=== PATIENT | female | born 1970 | race Caucasian/White ===

== ENCOUNTER 2018-11-24 18:33 | Emergency (ER) | payer BC ==
--- OUTSIDE RECORDS SUMMARY | 2018-11-24 18:36 | XMS REPORT | Summary of Care ---
:1970 Author Encounter [facility] Olesya(DALIA) [id number] Date(s): 12/31/13 - 12/31/[address] Discharge Disposition: Home Physician Attending: Kevin Garduno MD Physician Admitting: Kevin Garduno MD Physician_Referring: Ventura Epperson MD Reason for Visit STROKE R/O Vital Signs Most recent to oldest 1 2 3 [Reference Range]: Height 162.56 cm 162.56 cm (12/31/13 6:38 AM) (12/31/13 12:43 AM) Temperature Oral [96.4-99.1 96.2 DegF 97.0 DegF 98.6 DegF DegF] *LOW* (12/31/13 7:28 AM) (12/31/13 5:59 AM) (12/31/13 11:41 AM) Systolic Blood Pressure 108 mmHg 103 mmHg 117 mmHg [90-140 mmHg] (12/31/13 11:41 AM) (12/31/13 7:28 AM) (12/31/13 6:35 AM) Diastolic Blood Pressure 62 mmHg 55 mmHg 63 mmHg [60-90 mmHg] (12/31/13 11:41 AM) *LOW* (12/31/13 6:35 AM) (12/31/13 7:28 AM) Respiratory Rate [14-20 18 BRMIN 18 BRMIN 19 BRMIN BRMIN] (12/31/13 11:41 AM) (12/31/13 7:28 AM) (12/31/13 6:35 AM) Peripheral Pulse Rate [60-100 89 bpm 70 bpm 83 bpm bpm] (12/31/13 11:41 AM) (12/31/13 7:28 AM) (12/31/13 6:35 AM) Weight 112.727 kg 113.636 kg (12/31/13 6:38 AM) (12/31/13 12:43 AM) Body Mass Index 42.66 m2 43 m2 (12/31/13 6:38 AM) (12/31/13 12:43 AM) Problem List Condition Effective Dates Status Health Status Informant Asthma(Confirmed) Resolved Pericarditis(Confirmed) 12/18/04 Resolved Allergies, Adverse Reactions, Alerts Substance Reaction Severity Status codeine Active Medications Benadryl 25 mg, 0.5 mL, Route: IVP, Drug form: INJ, ONCE, Dosing Weight 112.727, kg, PRN Headache, Start date: 12/31/13 10:50:00 Notes: (Same as: Benadryl) Start Date: 12/31/13 Stop Date: 12/31/13 Status: Discontinuedchlorhexidine topical 0.12% liquid 15 mL, Route: Swab Mouth, Q4H, Drug form: LIQ, Start date: 12/31/13 4:00:00, Duration: 30 day, Stop date: 01/30/14 0:00:00 Notes: (Same As: Peridex) Start Date: 12/31/13 Stop Date: 12/31/13 Status: Discontinuedketorolac 30 mg, 1 mL, Route: IV, Drug form: INJ, ONCE, Dosing Weight 112.727, kg, Start date: 12/31/13 11:08:00, Duration: 1 doses or times, Stop date: 12/31/13 11:08: 00 Notes: (Same as:Toradol) IV bolus must be given >15 seconds. Give IM administration slowly and deeply into the muscle. Not for use > 4 days Start Date: 12/31/13 Stop Date: 12/31/13 Status: Completedketorolac 30 mg, 1 mL, Route: IV, Drug form: INJ, Q8H-05, Dosing Weight 113.636, kg, Priority: NOW, Start date: 12/31/13 3:33:00, Duration: 4 day, Stop date: 21:00:00 Notes: (Same as:Toradol) IV bolus must be given >15 seconds. Give IM administration slowly and deeply into the muscle. Not for use > 4 days Start Date: 12/31/13 Stop Date: 12/31/13 Status: Discontinuedmagnesium sulfate 2 gm, 50 mL, Route: IVPB, Drug form: INJ, ONCE, Dosing Weight 113.636, kg, Total dose=2 gm, Start date: 12/31/13 3:33:00, Duration: 1 doses or times, Stop date: 12/31/13 3:33:00 Start Date: 12/31/13 Stop Date: 12/31/13 Status: CompletedmethylPREDNISolone 125 mg, 2 mL, Route: IVP, Drug form: INJ, ONCE, Dosing Weight 112.727, kg, Start date: 12/31/13 10:49:00, Stop date: 12/31/13 10:49:00 Notes: (Same as:Solu-MEDROL, A-Methapred) Start Date: 12/31/13 Stop Date: 12/31/13 Status: Discontinuedmetoclopramide 10 mg, 2 mL, Route: IVP, Drug form: INJ, Q8H, Dosing Weight 113.636, kg, Priority: NOW, Start date: 12/31/13 3:30:00, Duration: 30 day, Stop date: 0:00:00 Notes: (Same as: Reglan) Start Date: 12/31/13 Stop Date: 12/31/13 Status: Discontinuedondansetron 4 mg, 2 mL, Route: IVP, Drug form: INJ, Q8H, Dosing Weight 113.636, kg, PRN Nausea & Vomiting, Start date: 12/31/13 3:30:00, Duration: 30 day, Stop date : 01/30/14 3:29:00 Notes: (Same as: Zofran) Start Date: 12/31/13 Stop Date: 12/31/13 Status: DiscontinuedProAir HFA 1 - 2 puffs, PO, Q4H, Wheezing / cough / shortness of breath, # 1 ea, 0 Refill(s ) Start Date: 12/31/13 Stop Date: 12/31/13 Status: DiscontinuedProAir HFA 90 mcg/inh inhalation aerosol with adapter 108MCG/A, INHALATION, Q4H, as needed for wheezing, # 9 gm, 0 Refill(s) Start Date: 12/31/13 Status: OrderedProAir HFA 90 mcg/inh inhalation aerosol with adapter 2 puff, INHALATION, Q4H, for wheezing, # 9 gm, 0 Refill(s) Start Date: 12/31/13 Stop Date: 12/31/13 Status: DiscontinuedSaline Flush 0.9% 5 ml, Route: IVP, Drug Form: INJ, Dosing Weight 113.636, kg, Q12H, Start date: 12/31/13 9:00:00, Duration: 30 day, Stop date: 01/29/14 21:00:00 Notes: (Same as: BD Posiflush) Start Date: 12/31/13 Stop Date: 12/31/13 Status: DiscontinuedSaline Flush 0.9% 5 ml, Route: IVP, Drug Form: INJ, Dosing Weight 113.636, kg, PRN, PRN Line Flush , Start date: 12/31/13 3:30:00, Duration: 30 day, Stop date: 01/30/14 3:29:00 Notes: (Same as: BD Posiflush) Start Date: 12/31/13 Stop Date: 12/31/13 Status: Discontinued Results ELECTROLYTES Most recent to oldest [Reference Range]: 1 Sodium Lvl [135-145 mEq/L] 135 mEq/L (12/31/13 3:38 AM) Potassium Lvl [3.5-5.1 mEq/L] 4.9 mEq/L 1 (12/31/13 3:38 AM) Chloride Lvl [95-109 mEq/L] 104 mEq/L (12/31/13 3:38 AM) CO2 [24-32 mEq/L] 22 mEq/L *LOW* (12/31/13 3:38 AM) AGAP [10.0-20.0 mEq/L] 13.9 mEq/L (12/31/13 3:38 AM) 1Result Comment: Specimen Moderately Hemolyzed.CHEM PANEL Most recent to oldest [Reference Range]: 1 Creatinine Lvl [0.5-1.4 mg/dL] 0.8 mg/dL (12/31/13 3:38 AM) eGFR 92 mL/min/1.73m2 2 *NA* (12/31/13 3:38 AM) BUN [7-22 mg/dL] 13 mg/dL (12/31/13 3:38 AM) B/C Ratio [6-25] 16 (12/31/13 3:38 AM) Glucose Lvl [70-99 mg/dL] 141 mg/dL 3 *HI* (12/31/13 3:38 AM) Total Protein [6.4-8.4 g/dL] 8.3 g/dL (12/31/13 3:38 AM) Albumin Lvl [3.5-5.0 g/dL] 3.4 g/dL *LOW* (12/31/13 3:38 AM) Globulin [2.0-4.0 g/dL] 4.9 g/dL *HI* (12/31/13 3:38 AM) A/G Ratio [0.7-1.6] 0.7 (12/31/13 3:38 AM) Calcium Lvl [8.5-10.5 mg/dL] 9.9 mg/dL (12/31/13 3:38 AM) ALT [0-65 unit/L] 20 unit/L (12/31/13 3:38 AM) AST [0-37 unit/L] 30 unit/L (12/31/13 3:38 AM) Alk Phos [39-136 unit/L] 78 unit/L (12/31/13 3:38 AM) Bili Total [0.2-1.3 mg/dL] 0.4 mg/dL (12/31/13 3:38 AM) 2Result Comment: The eGFR is calculated using the CKD-EPI formula. In most young , healthy individualsthe eGFR will be >90 mL/min/1.73m2. The eGFR declines with age. An eGFR of 60-89 may be normal in some populations, particularly the elderly, for whom the CKD-EPI formula has not been extensively validated. Use of the eGFR is not recommended in the following populations: Individuals with unstable creatinine concentrations, including patients and those with serious co-morbid conditions. Patients with extremes in muscle mass or diet. The data above are obtained from the National Kidney Disease Education Program ( NKDEP) which additionally recommends that when the eGFR is used in patients with extremes of body mass index for purposesof drug dosing, the eGFR should be multiplied by the estimated BMI.3Interpretive Data: Adult reference range values reflect the clinical guidelines of the [place] [employer].HEMATOLOGY Most recent to oldest [Reference Range]: 1 WBC [3.7-10.4 K/CMM] 7.0 K/CMM (12/31/13 5:50 AM) RBC [4.20-5.40 M/CMM] 4.73 M/CMM (12/31/13 5:50 AM) Hgb [12.0-16.0 g/dL] 13.8 g/dL (12/31/13 5:50 AM) Hct [36.0-48.0 %] 40.3 % (12/31/13 5:50 AM) MCV [80.0-98.0 fL] 85.2 fL (12/31/13 5:50 AM) MCH [27.0-31.0 pg] 29.1 pg (12/31/13 5:50 AM) MCHC [32.0-36.0 g/dL] 34.1 g/dL (12/31/13 5:50 AM) RDW [11.5-14.5 %] 13.1 % (12/31/13 5:50 AM) Platelet [133-450 K/CMM] 319 K/CMM (12/31/13 5:50 AM) MPV [7.4-10.4 fL] 10.0 fL (12/31/13 5:50 AM) Segs [45.0-75.0 %] 86.2 % *HI* (12/31/13 5:50 AM) Lymphocytes [20.0-40.0 %] 12.7 % *LOW* (12/31/13 5:50 AM) Monocytes [2.0-12.0 %] 0.8 % *LOW* (12/31/13 5:50 AM) Eosinophils [0.0-4.0 %] 0.2 % (12/31/13 5:50 AM) Basophils [0.0-1.0 %] 0.1 % (12/31/13 5:50 AM) Segs-Bands # [1.5-8.1 K/CMM] 6.0 K/CMM (12/31/13 5:50 AM) Lymphocytes # [1.0-5.5 K/CMM] 0.9 K/CMM *LOW* (12/31/13 5:50 AM) Monocytes # [0.0-0.8 K/CMM] 0.1 K/CMM (12/31/13 5:50 AM) Eosinophils # [0.0-0.5 K/CMM] 0.0 K/CMM (12/31/13 5:50 AM) Basophils # [0.0-0.2 K/CMM] 0.0 K/CMM (12/31/13 5:50 AM) Plt Morph Normal (12/31/13 5:50 AM) PT [12.0-14.7 seconds] 13.0 seconds (12/31/13 3:38 AM) INR [0.85-1.17] 0.98 4 (12/31/13 3:38 AM) PTT [22.9-35.8 seconds] 30.6 seconds 5 (12/31/13 3:38 AM) 4Interpretive Data: RECOMMENDED RANGES FOR PROTIME INR: 2.0-3.0 for most medical and surgical thromboembolic states. 2.5-3.5 for artificial heart valves and recurrent embolism. INR SHOULD BE USED ONLY FOR PATIENTS ON STABLE ANTICOAGULANT THERAPY.5Interpretive Data: Heparin Therapeutic Range: 57 - 92 Seconds Medications Administered During Your Visit No data available for this section Immunizations No data available for this section Procedures Procedure Type Body Site Date of Procedure Related Diagnosis Appendectomy Carpal tunnel release section TL - Tubal ligation Social History Social History Type Response Smoking Status Never smoker, Exposure to Tobacco Smoke None, Cigarette Smoking Last 365 Days No, Reg Smoking Cessation Counseling No Assessment and Plan Extracted from: Title: Clinical Document Author: Shyam Lopez MD Date: 12/31/13 Stroke Neurology Admission Note HISTORY OF PRESENT ILLNESS: 43F with history of migraine headaches which started at age 17, now presenting with severe headaches worsening over the past 2 weeks. She was seen at an OSH and a CT head was done which showed a hyperde nsity in the left vertebral artery (V4 segment). A CTA of the head and neck was then done which showed poor opacification of the left vertebral artery. The patient was referred to this institution for further evaluation. She describes her headaches as bifrontal, pressure-like, up to 9/10 in severity , occurring daily over the past 2 weeks and lasting most of the day, relieved partly by taking 4-6 tablets of tylenol daily , with associated photophobia, phonophobia, and nausea. Yesterday her headaches began to involve her whole head and became throbbing in quality. She was treated for a sinus infection with antibiotics a week ago and was given albuterol, which helped improve her breathing but did not affect her headaches. She denies any focal weakness, numbness, tingling, or visual disturbances. Review of Systems: GEN: No fever, chills, night sweats, weight loss, fatigue EYES: No blurred vision, double vision, eye pain ENT: No decreased hearing, nose bleeding, nasal congestion, sore throat CARDIO: No chest pain, palpitation, orthopnea, dyspnea on exertion PULM: No shortness of breath, cough, wheezing, asthma, sputum, hemoptysis GI: No nausea, vomiting, diarrhea, constipation, Abdominal Pain : No frequency, burning, hematuria, nocturia, hesitancy NEURO: As per HPI ENDO: No weight loss, weight gain, heat intolerance, cold intolerance SKIN: No rash, lesion, itching MUSC: No joint pain, muscle pain, arthritis, back pain Past Medical History: asthma, migraines Past Surgical History: appendectomy, 2 cesarian sections, left wrist and left foot cyst excision, carpal tunnel surgery x2 Family History: DM, HTN Social History: nonsmoker, drinks occasionally, denies illicit drug use Medications: exedrin and tylenol prn for headache Allergies: codeine Physical Exam: APPEARANCE - Active, alert, well developed, well nourished HEAD - Normocephalic and atraumatic EYES - Pupil equal and reactive to light PHARYNX - Mouth pink, mucous membranes moist. No tonsillar enlargement NECK - Supple, thyroid non-palpable, no significant adenopathy LUNGS - Clear to auscultation, no rales or rhonchi CV - Rate rhythm regular, no murmur, equal pulses bilaterally. ABDOMEN - Soft, non tender, with normal bowel sounds. 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 equal and briskly reactive, full EOMs, no papilledema, good venous pulsations, mildly flattened right nasolabial fold Motor: Tone: Normal Power: 5/5 in all groups of muscles in all four limbs Reflexes: 2+ symmetrical bilaterally Plantar: Flexor Drift: absent Sensory: Intact light touch and pin prick sensation Intact vibration and position sense Cerebellar signs: Intact FNT Gait: deferred NIHSS: 1 (right facial droop) THE FOLLOWING WERE PRESENT ON ADMISSION: 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 Assessment: 43F with history of migraine headaches which started at age 17, now presenting with severe headaches worsening over the past 2 weeks. She is likely having tension-type or migraine type headaches. Plan: -start toradol and reglan q8h for headache -give 1 time dose of magnesium sulfate 2g -MRI and MRA prior to discharge The case was discussed with Dr. Hilton, the marketing information coordinator General Neurology fellow. Shyam Lopez MD PGY2 Neurology Resident MSO [phone] Pager [phone] STROKE ATTENDING I have seen and examined the patient. Furthermore, I have discussed the case with and reviewed the resident's note and agree with the history, exam, assessment and plan. See note below for additions a nd/or exceptions and my findings. I have personally viewed the patient's radiographic studies and laboratory tests. Exam: Normal Imaging: MRI/A: unremarkable, no dissection or occlusion Assessment: Migraine Plan: Migraine -Treat BARRIGA, d/c home -Counselled on treating BARRIGA early with OTC meds Discuss philosophy of care with patient and family, reviewed and updated on plan of care and prognosis Code: [id number] Kevin Garduno MD (Teddy) Manager [employer] of Neurology Pager: [phone]
--- OUTSIDE RECORDS SUMMARY | 2018-11-24 18:36 | XMS REPORT ---
:1970 [facility] Address [address] [place] [address] Dr. Reynoso[address] [place] [id number] Care Team Providers Name Role Phone Unavailable Unavailable Unavailable Problems This patient has no known problems. Allergies, Adverse Reactions, Alerts This patient has no known allergies or adverse reactions. Medications This patient has no known medications.
--- OUTSIDE RECORDS SUMMARY | 2018-11-24 18:36 | XMS REPORT | Summary of Care ---
:1970 Author Name Jerald Burgos R.N. Address Unavailable Unavailable , Care Team Providers Name Role Phone DEBBI WELLS M.D. Unavailable Unavailable Unavailable Unavailable Unavailable Functional Status Name Dates Details Functional status health issues are not documented Status: Name Dates Details Cognitive status health issues are not documented Status: Problems Name Dates Details Vaginitis (616.10, N76.0) Status: Active Dysmenorrhea (625.3, N94.6) Status: Active Irritability and anger (799.22, R45.4) Status: Active Oral contraceptive pill surveillance (V25.41, Z30.41) Status: Active Lump or mass in breast (611.72, N63.0) Status: Active Yeast infection (112.9, B37.9) Status: Active Disturbed concentration (799.51, R41.840) Status: Active Visit for screening mammogram (V76.12, Z12.31) Status: Active Oral contraceptive prescribed (V25.01, Z30.011) Status: Active Dense breast (793.82, R92.2) Status: Active Menstrual migraine (346.40, G43.829) Status: Active History of lump of right breast (V13.89, Z87.898) Status: Active Contraception (V25.9, Z30.9) Status: Active Encounter for gynecological examination without abnormal finding (V72.31, Z01.419) Status: Active Breast screening (V76.10, Z12.31) Status: Active Medications Name Dates Details Norethindrone 0.35 MG Oral Tablet MICRONOR TAKE ONE TAB DAILY DISP: 90 DAY SUPPLY REFILL : 3 ++++ 90 day Supply +++++++++ Quantity: 84 Refills: 3 DEBBI WELLS M.D. Start : 31-Jan-2015 Active Advair Diskus AEPB Refills: 0 R.N.Active 14 Inhaler Pack Allergies and Adverse Reactions Name Dates Details Codeine Derivatives (Allergy) Status: Active Past Medical History Name Dates Details History of migraine (V12.49, Z86.69) Status: Resolved History of Visit for screening mammogram (V76.12, Z12.31) Status: Resolved History of Well woman exam with routine gynecological exam (V72.31, Z01.419) Status: Resolved Personal history of asthma (V12.69, Z87.09) Status: Resolved Procedures Procedure Dates Details History of Hand Surgery Completed History of Section Completed History of Tubal Ligation Completed History of Appendectomy Completed History of Foot Surgery Left Completed Immunization Name Dates Details Immunizations not documented Family History Name Dates Details Family history of essential hypertension (V17.49, Z82.49) Status: Active Family history of thyroid disease (V18.19, Z83.49) Status: Active Family history of asthma (V17.5, Z82.5) Status: Active Name Dates Details Family history of cardiovascular disease (V17.49, Z82.49) Status: Active Family history of type 2 diabetes mellitus (V18.0, Z83.3) Status: Active Family history of gastrointestinal bleeding (V18.59, Z83.79) Status: Active Social History Name Dates Details - Status: Name Dates Details Never smoker Vital Signs Date Test Result Details No Known Vitals to report Results Date Description Value Details Results not documented Plan of Care Name Dates Details Planned Observations Planned Goals not documented Instructions Name Dates Details Instructions not documented Encounters Appointment; DEBBI WELLS M.D. On: 20-Feb-2016 10:15 Encounter Diagnosis: Problem not documented Appointment; DEBBI WELLS M.D. On: 23-Mar-2017 10:00 Encounter Diagnosis: Problem not documented
--- OUTSIDE RECORDS SUMMARY | 2018-11-24 18:36 | XMS REPORT | Continuity of Care Document ---
:1970 Author Organization [facility] Care Team Providers Name Role Phone [facility] Unavailable Unavailable Problems Problem Status Onset Classification Date Comments Source Date Reported MIGRAINE/ABNORMA Active 12/31/[address] STROKE R/O Active 12/31/[address] Pericarditis Resolved 12/19/19 Problem 01/02/[address] Asthma Resolved Problem 01/02/2014 [facility] CVA Active [facility] Medications Medication Details Route Status Patient Ordering Order Source Instructions Provider Date 200 ACTUAT 108MCG/A, Active 12/31[facility] Albuterol 0.09 INHALATION, 2013 Medical MG/ACTUAT Metered Q4H, as needed Center Dose Inhaler for wheezing, # [ProAir HFA] 9 gm, 0 Refill(s) 200 ACTUAT 2 puff, Inactive 12/31[facility] Albuterol 0.09 INHALATION, 2013 Medical MG/ACTUAT Metered Q4H, for Center Dose Inhaler wheezing, # 9 [ProAir HFA] gm, 0 Refill(s) ProAir HFA 1 - 2 puffs, Inactive 12/31[facility] PO, Q4H, 2013 Medical Wheezing / Center cough / shortness of breath, # 1 ea, 0 Refill(s) Ketorolac 30 mg, 1 mL, Inactive 12/31[facility] Route: IV, Drug 2013 Medical form: INJ, Center ONCE, Dosing Weight 112.727, kg, Start date: 12/31/13 11:08:00, Duration: 1 doses or times, Stop date: 12/31/13 11:08:00Notes: (Same as:Toradol) IV bolus must be given >15 seconds. Give IM administration slowly and deeply into the muscle. Not for use > 4 days Benadryl 25 mg, 0.5 mL, Inactive 12/31[facility] Route: IVP, 2013 Medical Drug form: INJ, Center ONCE, Dosing Weight 112.727, kg, PRN Headache, Start date: 12/31/13 10:50:00Notes: (Same as: Benadryl) Methylprednisolone 125 mg, 2 mL, Inactive [facility] Route: IVP, 2013 Medical Drug form: INJ, Center ONCE, Dosing Weight 112.727, kg, Start date: 12/31/13 10:49:00, Stop date: 12/31/13 10:49:00Notes: (Same as:Solu-MEDROL, A-Methapred) Saline Flush 0.9% 5 ml, Route: Inactive [facility] IVP, Drug Form: 2013 Medical INJ, Dosing Center Weight 113.636, kg, Q12H, Start date: 12/31/13 9:00:00, Duration: 30 day, Stop date: 01/29/14 21:00:00Notes: (Same as: BD Posiflush) chlorhexidine 15 mL, Route: Inactive [facility] gluconate 1.2 MG/ML Swab Mouth, 2013 Medical Mouthwash Q4H, Drug form: Center LIQ, Start date: 12/31/13 4:00:00, Duration: 30 day, Stop date: 01/30/14 0:00:00Notes: (Same As: Peridex) Magnesium Sulfate 2 gm, 50 mL, Inactive [facility] Route: IVPB, 2013 Medical Drug form: INJ, Center ONCE, Dosing Weight 113.636, kg, Total dose=2 gm, Start date: 12/31/13 3:33:00, Duration: 1 doses or times, Stop date: 12/31/13 3:33:00 Ketorolac 30 mg, 1 mL, Inactive [facility] Route: IV, Drug 2013 Medical form: INJ, Center Q8H-05, Dosing Weight 113.636, kg, Priority: NOW, Start date: 12/31/13 3:33:00, Duration: 4 day, Stop date: 01/03/14 21:00:00Notes: (Same as:Toradol) IV bolus must be given >15 seconds. Give IM administration slowly and deeply into the muscle. Not for use > 4 days Saline Flush 0.9% 5 ml, Route: Inactive [facility] IVP, Drug Form: 2013 Medical INJ, Dosing Center Weight 113.636, kg, PRN, PRN Line Flush, Start date: 12/31/13 3:30:00, Duration: 30 day, Stop date: 01/30/14 3:29:00Notes: (Same as: BD Posiflush) Ondansetron 4 mg, 2 mL, Inactive [facility] Route: IVP2013 Medical Drug form: INJ, Center Q8H, Dosing Weight 113.636, kg, PRN Nausea & Vomiting, Start date: 12/31/13 3:30:00, Duration: 30 day, Stop date: 01/30/14 3:29:00Notes: (Same as: Zofran) Metoclopramide 10 mg, 2 mL, Inactive [facility] Route: IVP2013 Medical Drug form: INJ, Center Q8H, Dosing Weight 113.636, kg, Priority: NOW, Start date: 12/31/13 3:30:00, Duration: 30 day, Stop date: 01/30/14 0:00:00Notes: (Same as: Reglan) Allergies, Adverse Reactions, Alerts Substance Category Reaction Severity Reaction Status Date Comments Source type Reported codeine Assertion Drug Active [facility] Immunizations No Data Provided for This Section Results Order Name Results Value Reference Date Interpretation Comments Source Range HEMATOLOGY MCH 29.1 27.0 - 12/31 [place] 31.0 /2013 [facility] HEMATOLOGY MCHC 34.1 32.0 - 12/31 [place] 36.0 [facility] HEMATOLOGY RDW 13.1 11.5 - 12/31 [place] 14.5 [facility] HEMATOLOGY Platelet 319 133 - 450 12/31 [facility] HEMATOLOGY MCV 85.2 80.0 - 12/31 [place] 98.0 /2013 [facility] HEMATOLOGY MPV 10.0 7.4 - 10.4 12/31 [facility] HEMATOLOGY RBC 4.73 4.20 - 12/31 [place] 5.40 /2013 [facility] HEMATOLOGY Hgb 13.8 12.0 - 12/31 [place] 16.0 [facility] HEMATOLOGY WBC 7.0 3.7 - 10.4 12/31 [facility] HEMATOLOGY Hct 40.3 36.0 - 12/31 [facility] [place] 48.0 /2013 [facility] HEMATOLOGY Basophils # 0.0 0.0 - 0.2 09 [facility] HEMATOLOGY Eosinophils # 0.0 0.0 - 0.5 12/31 [facility] HEMATOLOGY Segs-Bands # 6.0 1.5 - 8.1 12/31 [facility] HEMATOLOGY Basophils 0.1 0.0 - 1.0 12/31 [facility] HEMATOLOGY Monocytes # 0.1 0.0 - 0.8 12/31 [facility] HEMATOLOGY Lymphocytes # 0.9 1.0 - 5.5 12/31 [facility] HEMATOLOGY Eosinophils 0.2 0.0 - 4.0 12/31 [facility] HEMATOLOGY Lymphocytes 12.7 20.0 - 12/31 40.0 [facility] HEMATOLOGY Monocytes 0.8 2.0 - 12.0 12/31 [facility] HEMATOLOGY Segs 86.2 45.0 - 12/31 75.0 [facility] HEMATOLOGY Plt Morph Normal 12/31 [facility] (12/31/13 5:50 AM) [facility] CHEM PANEL A/G Ratio 0.7 0.7 - 1.6 12/31 [facility] CHEM PANEL Globulin 4.9 2.0 - 4.0 12/31 [facility] CHEM PANEL AGAP 13.9 10.0 - 12/31 [facility] 20.0 [facility] CHEM PANEL B/C Ratio 16 6 - 25 12/31 [facility] CHEM PANEL AST 30 0 - 37 12/31 [facility] CHEM PANEL ALT 20 0 - 65 12/31 [facility] CHEM PANEL Albumin Lvl 3.4 3.5 - 5.0 12/31 [facility] CHEM PANEL Alk Phos 78 39 - 136 12/31 [facility] CHEM PANEL Total Protein 8.3 6.4 - 8.4 12/31 [facility] CHEM PANEL Bili Total 0.4 0.2 - 1.3 12/31 [facility] CHEM PANEL eGFR 92 12/31 <sup>2</sup>Res ult Comment: Medical The eGFR is Center calculated using the CKD-EPI formula. In most young, healthy individuals the eGFR will be >90 mL/min/1.73m2. The eGFR declines with age. An eGFR of 60-89 may be normal in some populations, particularly the elderly, for whom the CKD-EPI formula has not been extensively validated. Use of the eGFR is not recommended in the following populations:&lt ;br/>
Indiv iduals with unstable creatinine concentrations, including patients and those with serious co-morbid conditions.<br/ >
Patients with extremes in muscle mass or diet.

The data above are obtained from the National Kidney Disease Education Program (NKDEP) which additionally recommends that when the eGFR is used in patients with extremes of body mass index for purposes of drug dosing, the eGFR should be multiplied by the estimated BMI. CHEM PANEL Potassium Lvl 4.9 3.5 - 5.1 12/31 <sup>1</sup>Res ult Comment: Medical Specimen Center Moderately Hemolyzed. CHEM PANEL Chloride Lvl 104 95 - 109 12/31 [facility] CHEM PANEL CO2 22 24 - 32 12/31 [facility] CHEM PANEL Calcium Lvl 9.9 8.5 - 10.5 12/31 [facility] CHEM PANEL BUN 13 7 - 22 12/31 [facility] CHEM PANEL Creatinine 0.8 0.5 - 1.4 12/31 [facility] CHEM PANEL Sodium Lvl 135 135 - 145 12/31 [facility] CHEM PANEL Glucose Lvl 141 70 - 99 12/31 <sup>3</sup>Int erpretive Data: [facility] Adult reference Center range values reflect the clinical guidelines
of the [place] [employer]. HEMATOLOGY PTT 30.6 22.9 - 12/31 <sup>5</sup>Int [facility] 35.8 erpretive Data: [facility] Heparin Center Therapeutic Range: 57 - 92 Seconds HEMATOLOGY PT 13.0 12.0 - 12/31 [facility] 14.7 [facility] HEMATOLOGY INR 0.98 0.85 - 12/31 <sup>4</sup>Int [facility] 1.17 erpretive Data: Medical RECOMMENDED Center RANGES FOR PROTIME INR:
2.0-3.0 for most medical and surgical thromboembolic states.
2.5-3.5 for artificial heart valves and recurrent embolism.
< br/>INR SHOULD BE USED ONLY FOR PATIENTS ON STABLE ANTICOAGULANT THERAPY. Pathology Reports No Data Provided for This Section Diagnostic Reports Report Value Date Source Brain wo contrast MRA EXAM: MRI BRAIN WITHOUT CONTRAST 12/31/2013 [facility] DATE: 12/31/2013 CLINICAL INDICATION: Headache with dizziness and giddiness Additional Clinical Information: Possible left vertebral thrombus TECHNIQUE: Multisequence multiplanar unenhanced MRI of the brain is performed , including [id number] MRA of the head and neck (i.e., 3-D TOF \T\ 2-D TOF, respectively). DISCUSSION: MRI BRAIN: There is no diffusion restriction. No acute intracranial hemorrhage, mass lesion, or extra-axial collection is present. FLAIR imaging demonstrates no significant abnormality in the white or lara matter. The ventricles and basal cisterns are normal. The flow-voids of the larger arteries at the cranial base are preserved. MRA BRAIN: There is normal flow-related signal in the intradural segments of the distal vertebral arteries including the basilar artery and the visualized proximal segments of the latter. The left vertebral artery is robust, whereas the right vertebral artery is relatively diminutive compared to it. No intraluminal clot is detected, particularly in the intradural segment of the left vertebral artery. The left PICA is not visualized, which may be accounted for by the presence of a left-sided AICA-PICA complex supplying both vascular territories. MRA NECK: There is normal flow-related signal in the common and internal carotid arteries bilaterally. There is no hemodynamically significant stenosis in the cervical carotid arteries by NASCET criteria. Normal flow-related signal in the extracranial vertebral arteries is also shown. The left vertebral artery is dominant. IMPRESSION: No hemorrhage or recent ischemic changes, particularly in the posterior circulation Unremarkable MRA of the vertebrobasilar arteries. Specifically, no intraluminal thrombus in the V4 segment of the dominant left vertebral artery is detected. No hemodynamically significant stenosis in the internal carotid arteries by NASCET criteria [All qualitative and quantitative assessments of carotid bifurcation and proximal internal carotid artery stenosis are made at referencing the distal internal carotid artery.] Neck wo contrast MRA EXAM: MRI BRAIN WITHOUT CONTRAST 12/31/2013 [facility] DATE: 12/31/2013 CLINICAL INDICATION: Headache with dizziness and giddiness Additional Clinical Information: Possible left vertebral thrombus TECHNIQUE: Multisequence multiplanar unenhanced MRI of the brain is performed , including [id number] MRA of the head and neck (i.e., 3-D TOF \T\ 2-D TOF, respectively). DISCUSSION: MRI BRAIN: There is no diffusion restriction. No acute intracranial hemorrhage, mass lesion, or extra-axial collection is present. FLAIR imaging demonstrates no significant abnormality in the white or lara matter. The ventricles and basal cisterns are normal. The flow-voids of the larger arteries at the cranial base are preserved. MRA BRAIN: There is normal flow-related signal in the intradural segments of the distal vertebral arteries including the basilar artery and the visualized proximal segments of the latter. The left vertebral artery is robust, whereas the right vertebral artery is relatively diminutive compared to it. No intraluminal clot is detected, particularly in the intradural segment of the left vertebral artery. The left PICA is not visualized, which may be accounted for by the presence of a left-sided AICA-PICA complex supplying both vascular territories. MRA NECK: There is normal flow-related signal in the common and internal carotid arteries bilaterally. There is no hemodynamically significant stenosis in the cervical carotid arteries by NASCET criteria. Normal flow-related signal in the extracranial vertebral arteries is also shown. The left vertebral artery is dominant. IMPRESSION: No hemorrhage or recent ischemic changes, particularly in the posterior circulation Unremarkable MRA of the vertebrobasilar arteries. Specifically, no intraluminal thrombus in the V4 segment of the dominant left vertebral artery is detected. No hemodynamically significant stenosis in the internal carotid arteries by NASCET criteria [All qualitative and quantitative assessments of carotid bifurcation and proximal internal carotid artery stenosis are made at referencing the distal internal carotid artery.] Brain wo contrast MRI EXAM: MRI BRAIN WITHOUT CONTRAST 12/31/2013 [facility] DATE: 12/31/2013 CLINICAL INDICATION: Headache with dizziness and giddiness Additional Clinical Information: Possible left vertebral thrombus TECHNIQUE: Multisequence multiplanar unenhanced MRI of the brain is performed , including [id number] MRA of the head and neck (i.e., 3-D TOF \T\ 2-D TOF, respectively). DISCUSSION: MRI BRAIN: There is no diffusion restriction. No acute intracranial hemorrhage, mass lesion, or extra-axial collection is present. FLAIR imaging demonstrates no significant abnormality in the white or lara matter. The ventricles and basal cisterns are normal. The flow-voids of the larger arteries at the cranial base are preserved. MRA BRAIN: There is normal flow-related signal in the intradural segments of the distal vertebral arteries including the basilar artery and the visualized proximal segments of the latter. The left vertebral artery is robust, whereas the right vertebral artery is relatively diminutive compared to it. No intraluminal clot is detected, particularly in the intradural segment of the left vertebral artery. The left PICA is not visualized, which may be accounted for by the presence of a left-sided AICA-PICA complex supplying both vascular territories. MRA NECK: There is normal flow-related signal in the common and internal carotid arteries bilaterally. There is no hemodynamically significant stenosis in the cervical carotid arteries by NASCET criteria. Normal flow-related signal in the extracranial vertebral arteries is also shown. The left vertebral artery is dominant. IMPRESSION: No hemorrhage or recent ischemic changes, particularly in the posterior circulation Unremarkable MRA of the vertebrobasilar arteries. Specifically, no intraluminal thrombus in the V4 segment of the dominant left vertebral artery is detected. No hemodynamically significant stenosis in the internal carotid arteries by NASCET criteria [All qualitative and quantitative assessments of carotid bifurcation and proximal internal carotid artery stenosis are made at referencing the distal internal carotid artery.] Consultation Notes No Data Provided for This Section Discharge Summaries No Data Provided for This Section History and Physicals No Data Provided for This Section Vital Signs Vital Sign Value Date Comments Source Heart Rate 89 12/31/2013 [facility] Temperature Oral (F) 96.2 F 12/31/2013 [facility] Diastolic (mm Hg) 62 12/31/2013 [facility] Systolic (mm Hg) 108 12/31/2013 [facility] Respitory Rate 18 12/31/2013 [facility] Systolic (mm Hg) 103 12/31/2013 [facility] Diastolic (mm Hg) 55 12/31/2013 [facility] Respitory Rate 18 12/31/2013 [facility] Heart Rate 70 12/31/2013 [facility] Temperature Oral (F) 97.0 F 12/31/2013 [facility] BMI Calculated 42.66 12/31/2013 [facility] Weight 112.727 12/31/2013 [facility] Height 162.56 cm 12/31/2013 [facility] Respitory Rate 19 12/31/2013 [facility] Heart Rate 83 12/31/2013 [facility] Diastolic (mm Hg) 63 12/31/2013 [facility] Systolic (mm Hg) 117 12/31/2013 [facility] Temperature Oral (F) 98.6 F 12/31/2013 [facility] BMI Calculated 43 12/31/2013 [facility] Height 162.56 cm 12/31/2013 [facility] Weight 113.636 12/31/2013 [facility] Encounters Location Location Encounter Encounter Reason Attending ADM DC Status Source Details Type Number For Provider Date Date Visit [facility] [id number] [place] 12/31 12/31 [facility] [place] /2013 [facility] Procedures Procedure Code Date Perfomer Comments Source Appendectomy [id number] [facility] Carpal tunnel [id number] [facility] section [id number] [facility] TL - Tubal ligation [id number] [facility] Assessment and Plan Assessment and Plan Date Source Extracted from:Title: Clinical Document 12/31/2013 [facility] Author: Shyam Lopez MD Date: 12/31/13 Stroke [...] fluent, comprehension intact, repetition and naming intact 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 Hilton, the food concession manager General Neurology fellow. Shyam Lopez MD PGY2 Neurology Resident MSO [phone] Pager [phone] STROKE ATTENDING I have seen and examined the patient. Furthermore, I have discussed the case with and reviewed the resident's note and agree with the history, exam, assessment and plan. See note below for additi ons and/or exceptions and my findings. I have personally viewed the patient's radiographic studies and laboratory tests. Exam: Normal Imaging: MRI/A: unremarkable, no dissection or occlusion Assessment: Migraine Plan: Migraine -Treat BARRIGA, d/c home -Counselled on treating BARRIGA early with OTC meds Discuss philosophy of care with patient and family, reviewed and updated on plan of care and prognosis Code: [id number] Kevin Garduno MD ([place]) Penetration Tester of Neurology Pager: [phone] Plan of Care No Data Provided for This Section Social History Social History Date Source Social History TypeResponse 12/31/2013 [facility] Smoking Status Never smoker, Exposure to Tobacco Smoke None, Cigarette Smoking Last 365 Days No, Reg Smoking Cessation Counseling No Family History No Data Provided for This Section Advance Directives No Data Provided for This Section Functional Status No Data Provided for This Section
[2018-11-24] MEDS ORDERED: DIAZEPAM 5 MG TABLET ONE (19:30)
[2018-11-24] MEDS ORDERED: HYDROCODONE/APAP 5/325 MG TAB ONE (19:30)
--- NOTE | 2018-11-24 20:23 | ER ---
Nurse's Notes [facility] Name: Gill Car Age: 48 yrs Sex: Female : 1970 Arrival Date: 11/24/2018 Time: 18:35 Bed 15 Private MD: Checo Pires S Diagnosis: Radiculopathy, cervical region Presentation: 11/24 18:53 Presenting complaint: Patient states: " I woke up Wednesday and my neck really hurt. I ph thought I slept on it wrong but it's just gotten worse." Reports pain in center of neck that radiates to both shoulders. Transition of care: patient was not received from another setting of care. Onset of symptoms was November 24, 2018. Risk Assessment: Do you want to hurt yourself or someone else? Patient reports no desire to harm self or others. Initial Sepsis Screen: Does the patient meet any 2 criteria? No. Patient's initial sepsis screen is negative. Does the patient have a suspected source of infection? No. Patient's initial sepsis screen is negative. Care prior to arrival: None. 18:53 Method Of Arrival: Ambulatory ph 18:53 Acuity: IWONA 4 ph Historical: - Allergies: 18:56 Codeine; ph - Home Meds: 18:56 nasalcort [Active]; Zyrtec 10 mg Oral tab 1 tab once daily [Active]; ph - PMHx: 18:56 Asthma; ph - PSHx: 18:56 L bunionectomy; R shoulder; Bladder suspension; Tubal ligation; ph - Immunization history:: Adult Immunizations unknown. - Social history:: Smoking status: Patient/guardian denies using tobacco. - Ebola Screening: : No symptoms or risks identified at this time. Screenin:00 Abuse screen: Denies threats or abuse. Nutritional screening: No deficits noted. tr5 Tuberculosis screening: No symptoms or risk factors identified. Fall Risk No fall in past 12 months (0 pts). No secondary diagnosis (0 pts). Assessment: 19:38 General: Appears uncomfortable, Behavior is calm, cooperative, appropriate for age. tr5 Pain: Complains of pain in scalp, left trapezius and right trapezius Pain does not radiate. Pain currently is 7 out of 10 on a pain scale. Quality of pain is described as aching, crampy. Neuro: Level of Consciousness is awake, alert, obeys commands, Oriented to person, place, time, situation, Rehabilitation Physician are equal bilaterally Moves all extremities. Cardiovascular: Heart tones present Bruits absent Capillary refill < 3 seconds Pulses are all present. Edema is absent. Respiratory: Airway is patent Trachea midline Respiratory effort is even, unlabored, Respiratory pattern is regular, symmetrical, Breath sounds are clear bilaterally. GI: No signs and/or symptoms were reported involving the gastrointestinal system. : No signs and/or symptoms were reported regarding the genitourinary system. EENT: No signs and/or symptoms were reported regarding the EENT system. Derm: Skin is intact, is healthy with good turgor, Skin is dry, Skin is normal, Skin temperature is warm. Musculoskeletal: Capillary refill < 3 seconds, Range of motion: intact in all extremities. Vital Signs: 18:55 BP 134 / 92; Pulse 88; Resp 18; Temp 97.9; Pulse Ox 100% on R/A; Weight 119.75 kg; ph Height 5 ft. 4 in. (162.56 cm); Pain 7/10; 18:55 Body Mass Index 45.32 (119.75 kg, 162.56 cm) ph ED Course: 18:35 Patient arrived in ED. mr 18:35 Checo Pires MD is Private Physician. mr 18:54 Jovana Mcneal FNP-C is [facility]. snw 18:54 Nicolas Farias MD is Attending Physician. snw 18:55 Triage completed. ph 18:56 Arm band placed on Patient placed in an exam room. ph 19:00 Bed in low position. Call light in reach. Side rails up X 1. Warm blanket given. tr5 19:11 Khris Duque, RN is Primary Nurse. tr5 19:38 Patient moved to radiology via wheelchair. tr5 19:45 XRAY C Spine Ap/lat In Process Unspecified. EDMS 19:56 Awaiting radiology results. tr5 19:56 Door closed. Noise minimized. tr5 20:37 No provider procedures requiring assistance completed. Patient did not have IV access tr5 during this emergency room visit. Administered Medications: 19:33 Drug: Valium 10 mg Route: PO; tr5 20:16 Follow up: Response: No adverse reaction; Marked relief of symptoms tr5 19:33 Drug: [place] 5 mg-325 mg 1 tabs {Note: RAAS Score: 0.} Route: PO; tr5 20:15 Follow up: Response: Pain is decreased; RASS: Alert and Calm (0) tr5 Outcome: 20:21 Discharge ordered by MD. miller 20:37 Discharged to home ambulatory. tr5 20:37 Condition: stable 20:37 Discharge instructions given to patient, Instructed on discharge instructions, follow up and referral plans. medication usage, Demonstrated understanding of instructions, follow-up care, medications, Prescriptions given X 2. 20:37 Patient left the ED. tr5 Signatures: Dispatcher [employer] EDMS Jovana Mcneal, SENIOR STATISTICIAN-C SENIOR STATISTICIAN-Nafisa Norwood Patricia, RN RN Khris Pardo RN RN tr5
--- NOTE | 2018-11-24 20:24 | EDPHYS ---
Physician Documentation [facility] Name: Gill Car Age: 48 yrs Sex: Female : 1970 Arrival Date: 11/24/2018 Time: 18:35 Bed 15 Private MD: Checo Pires S ED Physician Nicolas Farias HPI: 11/24 19:44 This 48 yrs old Female presents to ER via Ambulatory with complaints of Neck snw Problem. 19:44 The patient or guardian complains of decreased range of motion, pain. The symptoms are snw located on the left trapezius, right trapezius and thoracic area. Onset: The symptoms/episode began/occurred suddenly, 6 day(s) ago, and became persistent. Context: The problem was sustained at home, The neck injury/problem resulted from from unknown cause. Associated signs and symptoms: The patient has no apparent associated signs or symptoms. Location: left trapezius, right trapezius, left scapular area and right scapular area. Severity of symptoms: At their worst the symptoms were moderate, in the emergency department the symptoms are unchanged. It is unknown whether or not the patient has had similar symptoms in the past. It is unknown whether or not the patient has recently seen a physician. Historical: - Allergies: 18:56 Codeine; ph - Home Meds: 18:56 nasalcort [Active]; Zyrtec 10 mg Oral tab 1 tab once daily [Active]; ph - PMHx: 18:56 Asthma; ph - PSHx: 18:56 L bunionectomy; R shoulder; Bladder suspension; Tubal ligation; ph - Immunization history:: Adult Immunizations unknown. - Social history:: Smoking status: Patient/guardian denies using tobacco. - Ebola Screening: : No symptoms or risks identified at this time. ROS: 19:31 Constitutional: Negative for fever, chills, and weight loss, Eyes: Negative for injury, snw pain, redness, and discharge, ENT: Negative for injury, pain, and discharge, Cardiovascular: Negative for chest pain, palpitations, and edema, Respiratory: Negative for shortness of breath, cough, wheezing, and pleuritic chest pain, Abdomen/GI: Negative for abdominal pain, nausea, vomiting, diarrhea, and constipation, Back: Negative for injury and pain, : Negative for injury, bleeding, discharge, and swelling, MS/Extremity: Negative for injury and deformity, Skin: Negative for injury, rash, and discoloration, Neuro: Negative for headache, weakness, numbness, tingling, and seizure. 19:31 Neck: Positive for pain with movement, stiffness, of the lower neck pain with radiation to bilateral shoulders. Exam: 19:24 Constitutional: This is a well developed, well nourished patient who is awake, alert, snw and in no acute distress. Head/Face: Normocephalic, atraumatic. Eyes: Pupils equal round and reactive to light, extra-ocular motions intact. Lids and lashes normal. Conjunctiva and sclera are non-icteric and not injected. Cornea within normal limits. Periorbital areas with no swelling, redness, or edema. ENT: Nares patent. No nasal discharge, no septal abnormalities noted. Tympanic membranes are normal and external auditory canals are clear. Oropharynx with no redness, swelling, or masses, exudates, or evidence of obstruction, uvula midline. Mucous membranes moist. Neck: Trachea midline, no thyromegaly or masses palpated, and no cervical lymphadenopathy. Supple, full range of motion without nuchal rigidity, or vertebral point tenderness. No Meningismus. Chest/axilla: Normal chest wall appearance and motion. Nontender with no deformity. No lesions are appreciated. Cardiovascular: Regular rate and rhythm with a normal S1 and S2. No gallops, murmurs, or rubs. Normal PMI, no JVD. No pulse deficits. Respiratory: Lungs have equal breath sounds bilaterally, clear to auscultation and percussion. No rales, rhonchi or wheezes noted. No increased work of breathing, no retractions or nasal flaring. Abdomen/GI: Soft, non-tender, with normal bowel sounds. No distension or tympany. No guarding or rebound. No evidence of tenderness throughout. Back: No spinal tenderness. No costovertebral tenderness. Full range of motion. Skin: Warm, dry with normal turgor. Normal color with no rashes, no lesions, and no evidence of cellulitis. Neuro: Awake and alert, GCS 15, oriented to person, place, time, and situation. Cranial nerves II-XII grossly intact. Motor strength 5/5 in all extremities. Sensory grossly intact. Cerebellar exam normal. Normal gait. Psych: Awake, alert, with orientation to person, place and time. Behavior, mood, and affect are within normal limits. 19:24 Musculoskeletal/extremity: ROM: tendonitis in left ankle in boot, right shoulder pain chronically. Pt states she awoke Riki with neck pain radiating to bilateral shoulders. Vital Signs: 18:55 BP 134 / 92; Pulse 88; Resp 18; Temp 97.9; Pulse Ox 100% on R/A; Weight 119.75 kg; ph Height 5 ft. 4 in. (162.56 cm); Pain 7/10; 18:55 Body Mass Index 45.32 (119.75 kg, 162.56 cm) ph MDM: 18:54 Patient medically screened. snw 20:19 Data reviewed: vital signs, nurses notes. Data interpreted: Pulse oximetry: on room air snw is 100 %. Interpretation: normal. Counseling: I had a detailed discussion with the patient and/or guardian regarding: the historical points, exam findings, and any diagnostic results supporting the discharge/admit diagnosis, radiology results, the need for outpatient follow up, to return to the emergency department if symptoms worsen or persist or if there are any questions or concerns that arise at home. Response to treatment: the patient's symptoms have markedly improved after treatment. Special discussion: Based on the history and exam findings, there is no indication for further emergent testing or inpatient evaluation. I discussed with the patient/guardian the need to see the orthopedic surgeon for further evaluation of the symptoms. I discussed with the patient/guardian the need to see the career development specialist for further evaluation of the symptoms. I discussed with the patient/guardian the need to see the primary care provider for further evaluation of the symptoms. 11/24 19:17 Order name: XRAY C Spine Ap/lat snw Administered Medications: 19:33 Drug: Valium 10 mg Route: PO; tr5 20:16 Follow up: Response: No adverse reaction; Marked relief of symptoms tr5 19:33 Drug: [place] 5 mg-325 mg 1 tabs {Note: RAAS Score: 0.} Route: PO; tr5 20:15 Follow up: Response: Pain is decreased; RASS: Alert and Calm (0) tr5 Disposition: 11/25 08:12 Co-signature as Attending Physician, iNcolas Farias MD I agree with the assessment and kdr plan of care. Disposition: 11/24/18 20:21 Discharged to Home. Impression: Radiculopathy, cervical region. - Condition is Stable. - Discharge Instructions: Cervical Radiculopathy, Cervical Sprain, Cryotherapy, Heat Therapy, Radicular Pain. - Prescriptions for Prednisone 20 mg Oral Tablet - take 2 tablet by ORAL route once daily for 5 days; 10 tablet. orphenadrine citrate 100 mg Oral Tablet Sustained Release - take 1 tablet by ORAL route 2 times per day As needed; 20 tablet. - Work release form, Medication Reconciliation Form, Thank You Letter, Antibiotic Education, Prescription Opioid Use form. - Follow up: Private Physician; When: Tomorrow; Reason: Recheck today's complaints, Continuance of care, Re-evaluation by your physician. Follow up: Emergency Department; When: As needed; Reason: Worsening of condition. Signatures: Dispatcher [employer] EDCT Nicolas Farias MD MD [facility] Jovana Mcneal, SIGNALS INTELLIGENCE SUPERINTENDENT-C SIGNALS INTELLIGENCE SUPERINTENDENT-[employer] Kenia Aguiar, RN RN Khris Duque RN RN tr5 Corrections: (The following items were deleted from the chart) 11/24 20:37 20:21 11/24/2018 20:21 Discharged to Home. Impression: Radiculopathy, cervical region. tr5 Condition is Stable. Forms are Medication Reconciliation Form, Thank You Letter, Antibiotic Education, Prescription Opioid Use. Follow up: Private Physician; When: Tomorrow; Reason: Recheck today's complaints, Continuance of care, Re-evaluation by your physician. Follow up: Emergency Department; When: As needed; Reason: Worsening of condition. snw
--- NOTE | 2018-11-24 20:36 | RAD REPORT ---
EXAM DESCRIPTION: RAD - C Spine Ap/Lat - 11/24/2018 7:46 pm CLINICAL HISTORY: Neck pain, pain radiating to both shoulders. COMPARISON: None. FINDINGS: Cervical bodies are normal in height and alignment. No fracture or acute bony process seen . No significant disc space narrowing. There is no prevertebral soft tissue thickening or other suspicious soft tissue finding. IMPRESSION: Negative cervical spine examination.
== END 2018-11-24 20:37 | disposition home or self-care (01) ==
LOC: ER 18:33
DX: M54.12 Radiculopathy, cervical region (principal); J45.909 Unspecified asthma, uncomplicated; Z88.5 Allergy status to narcotic agent
CPT/HCPCS: 72040; 99283

== ENCOUNTER 2022-09-02 22:37 | Observation (INO) | payer BC ==
--- OUTSIDE RECORDS SUMMARY | 2022-09-02 22:46 | XMS REPORT | Continuity of Care Document ---
:[address] [facility] t Address [address] [place] [address] [place] [id number] Care Team Providers Name Role Phone Checo Metcalf MD Primary Care Physician [phone] DELROY LAKHANI Attending Clinician Unavailable FERNANDA PRINCE Attending Clinician Unavailable MATHEUS SILVA Attending Clinician Unavailable Doctor Unassigned, [place] Attending Clinician Unavailable Matheus Silva Attending Clinician Unavailable Checo Metcalf MD Attending Clinician Fernanda Prince MD Attending Clinician Ashley Crawley DO Attending Clinician ASHLEY CRAWLEY Attending Clinician Unavailable ASHLEY CRAWLEY Attending Clinician Unavailable RUBEN TOBIN Attending Clinician Unavailable Ruben George Attending Clinician SHIRA LORD Attending Clinician Unavailable Shria Valentino Attending Clinician LINSEY SNYDER Attending Clinician Unavailable Delroy Lakhani MD Attending Clinician Room, [facility] Attending Clinician Unavailable Kizzy Flores LVN Attending Clinician Unavailable Lab, Ang - Db Attending Clinician Unavailable CHECO METCALF Attending Clinician Unavailable Yumiko NEFF, Felipe Attending Clinician FELIPE MILLAN Attending Clinician Unavailable Husam BELCHER, Lorenza Attending Clinician Unavailable Analisa NEFF, Gustavo Attending Clinician [phone] Only, Adc Test Attending Clinician Unavailable Linsey Snyder MD Attending Clinician Renetta Godoy RN Attending Clinician Unavailable Caitlin Ralph MA Attending Clinician Unavailable MATT LAU Attending Clinician Unavailable Julio Wild Attending Clinician Unavailable ESE PIMENTEL Attending Clinician Unavailable BAL DIXON Attending Clinician Unavailable DEBBI WELLS M.D. Attending Clinician Unavailable Kevin Garduno Attending Clinician DELROY LAKHANI Admitting Clinician Unavailable Tim Seymour Admitting Clinician Unavailable Delroy Lakhani MD Admitting Clinician LINSEY SNYDER Admitting Clinician Unavailable RUBEN TOBIN Admitting Clinician Unavailable ESE PIMENTEL Admitting Clinician Unavailable Kvein Garduno Admitting Clinician Payers Payer Name Policy Type Policy Number Effective Date Expiration Date S [facility] [id number] 2015 00:00:00 Problems Condition Condition Condition Status Onset Resolution Last Treating Co mments Source Name Details Category Date Date Treatment Clinician Date Upper Upper Disease Active 2021-04 [facility] respirator respirator 2-20 it y of y tract y tract 00:00: [place] infection, infection, 00 Me dical unspecifie unspecifie Br anch d type d type Gastrocnem Gastrocnem Disease Active U nivers ius ius 6-30 ity of equinus, equinus, 00:00: [place] right right 00 Medical Branch Achilles Achilles Disease Active Overview: Un amrita tendinitis tendinitis 628 [place] ity of of right of right 00:00: g of this [place] as lower lower 00 note Medical extremity extremity might be Br anch different from the original. 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 severe severe 2-14 ity of obesity obesity 00:00: [place] without without 00 Medical serious serious Branch comorbidit comorbidit y with y with body mass body mass index index (BMI) of (BMI) of 45.0 to 45.0 to 49.9 in 49.9 in adult, adult, unspecifie unspecifie d obesity d obesity type type Lump or Lump or Disease Active 2019-04 Univers mass in mass in 2-14 ity of breast breast 00:00: [place] 00 Medical Branch 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 2-14 it y of ce ce 00:00: [place] 00 Medical Branch S/P S/P Disease Active 2018-04 Methodi Achilles Achilles 2-20 st tendon tendon 00:00: [facility]ospita repair repair 00 l Achilles Achilles Disease Active 2018-04 Unive rs tendinitis tendinitis 1-21 it y of of left of left 00:00: [place] lower lower 00 Medical extremity extremity Bran ch Acute Acute Disease Active Univers nonintract nonintract 3-09 it y of able able 00:00: [place] headache, headache, 00 Medi mariam unspecifie unspecifie Br anch d headache d headache type type Vision Vision Disease Active Univers changes changes 3- ity of 00:00: [place] 00 Medical Branch Anxiety Anxiety Disease Active Univers 3-23 ity of 00:00: [place] 00 Medical Branch Depression Depression Disease Active U nivers 3-23 ity of 00:00: [place] 00 Medical Branch MIGRAINE/A MIGRAINE/ Diagnosis Active 2013-12-[address] ABNORMAL 12-30 02:51:[address] Active 00:00: Terry 12/30/[address] [place] [address] STROKE R/O STROKE Diagnosis Active 2014-01-01 Memoria R/O Active 12-30 10:49:00 l 12/30/2013 00:00: Theodore zarco [address] History of History of Problem Resolve [place] migraine migraine HL7.CCDAR2 d Ph ysici ans Personal Personal Problem Resolve [place] history of history of HL7.CCDAR2 d Physici asthma asthma ans Vaginitis Vaginitis Problem Active [place] HL7.CCDAR2 Physic i ans Dysmenorrh Dysmenorrh Problem Active U T ea ea HL7.CCDAR2 Physic i ans Irritabili Irritabili Problem Active U T ty and ty and HL7.CCDAR2 Physic i anger anger ans Yeast Yeast Problem Active [facility] infection infection HL7.CCDAR2 Physici ans Disturbed Disturbed Problem Active UT concentrat concentrat HL7.CCDAR2 Physici ion ion ans Oral Oral Problem Active [facility] contracept contracept HL7.CCDAR2 Physici lizett lizett ans prescribed prescribed Menstrual Menstrual Problem Active [facility] migraine migraine HL7.CCDAR2 Ph ysici ans History of History of Problem Active U T lump of lump of HL7.CCDAR2 Phys ici right right ans breast breast Dense Dense Problem Active UT breast breast HL7.CCDAR2 Physic i ans Encounter Encounter Problem Active UT for for HL7.CCDAR2 Physic i gynecologi gynecologi an s mariam mariam examinatio examinatio n without n without abnormal abnormal finding finding Oral Oral Problem Active UT contracept contracept HL7.CCDAR2 Physici lizett pill lizett pill ans surveillan surveillan ce ce Weight Weight Problem Active UT gain gain HL7.CCDAR2 Physic i ans Screening Screening Problem Active [facility] for for HL7.CCDAR2 Physic i thyroid thyroid ans disorder disorder Asthma Asthma Problem Resolve 2014-01-02 Mem oria (disorder) (disorder) d 20:49:01 l Resolved [place] Problem 01/02/2014 [facility] CVA CVA Diagnosis Active 2014-01-01 Mem oria Active 10:49:00 l [facility] Pericardit Pericardi Problem Resolve 2005-0 2014-01-02 2014-01-02 Memoria is tis d 12-18 20:49:01 20:49:01 l (disorder) (disorder) 00:00: [place] Resolved 00 12/18/2004 Problem 01/02/2014 [facility] Allergies, Adverse Reactions, Alerts Allergy Allergy Status Severity Reaction(s) Onset Inactive Treating Comm ents Source Name Type Date Date Clinician CIGARETT DRUG Active SOB 2021-04 Univers E SMOKE INGREDI 2-20 ity of 00:00: [place] 00 Medical Branch Cigarett Propensi Active Cough 2021-04 Univer s e Smoke ty to 2-20 ity of adverse 00:00: [place] reaction 00 Medical s Branch Codeine Propensi Active Unknown 2018-04 Method i ty to Reaction 05-09 st adverse 00:00: Hospita reaction 00 l s to drug codeine DA Active [facility] NAUSEA [facility] HALLUCINATIO 06-09 Pear marita N 00:00: d 00 [facility] Codeine Propensi Active Nausea Univers ty to and/or 07-09 ity of adverse Vomiting 00:00: [place] reaction 00 Medical s Branch CODEINE DRUG Active N/V Univers INGREDI 07-09 ity of 00:00: [place] 00 [facility] codeine codeine Active Memoria l [place] Codeine drug Active UT Derivati allergy Physici ves ans Family History Family Member Diagnosis Comments Start Date Stop Date Source Paternal Heart disease [facility] Paternal Kidney disease [facility] Paternal Diabetes [facility] Natural father Diabetes [facility] Natural father Heart disease [facility] Natural father Liver disease [facility] Maternal Stroke [facility] mother Stroke [facility] Paternal Cancer [facility] Mother Family history of [facility] essential hypertension Mother Family history of [facility] thyroid disease Mother Family history of [facility] asthma Father Family history of [facility] cardiovascular disease Father Family history of type [facility] 2 diabetes mellitus Father Family history of [facility] gastrointestinal bleeding Social History Social Habit Start Date Stop Date Quantity Comments Source Gender identity [facility] Sexual orientation [facility] History of Social 2022-06-26 2022-06-[address] function 00:00:00 00:00:00 Hospital Exposure to 2022-05-05 2022-05-15 Not sure University of SARS-CoV-2 (event) 00:00:00 10:17:00 [facility] Alcohol intake 2021-07-10 2021-07-10 Current drinker [facility] dist 00:00:00 00:00:00 of alcohol Hospital (finding) History [facility] 2020-04-01 2020-04-01 3 University o f Alcohol Frequency 00:00:00 00:00:00 [place] M edical Branch History [facility] 2020-04-01 2020-04-01 1 University o f Alcohol Std Drinks 00:00:00 00:00:00 [place] [facility] History [facility] 2020-04-01 2020-04-01 99 [facility] o f Alcohol Binge 00:00:00 00:00:00 [place] [facility] al Branch Tobacco use and 2019-03-09 2019-03-09 Smokeless Taoist exposure 00:00:00 00:00:00 tobacco non-user Hospital Alcohol Comment 2014-07-09 2014-07-09 1 drink/week Univers ity of 00:00:00 00:00:00 [facility] Sex [birth year] At [birth year] Taoist 00:00:00 00:00:00 [facility] Smoking Status Start Date Stop Date Source Social History [place] [facility] Medications Ordered Filled Start Stop Current Ordering Indication Dosage Frequency Signature Comments Components Source Medication Medication Date Date Medication? Clinician (SIG) Name Name oxymetazoli 2022- Yes [id number] 1{spray Use 1 Univers ne 0.05 % 08-03 } [place] in ity o f nasal spray 00:00: 04:59 each [place] 00 :00 nostril 3 Medical (three) Branch times daily as needed (sinus/ear pressure; do NOT use for more than 3 days straight) for up to 3 days. oxymetazoli 2022- Yes [id number] 1{spray Use 1 Univers ne 0.05 % 08-03-21 } [place] in ity o f nasal spray 00:00: 04:59 each [place] 00 :00 nostril 3 Medical (three) Branch times daily as needed (sinus/ear pressure; do NOT use for more than 3 days straight) for up to 3 days. erenumab-ao Yes inject Univ ers oe (AIMOVIG 1-27 under the ity of AUTOINJECTO 10:49: skin. [place] [id number] Medical Branch MULTIVITAMI Yes Take by Uni vers N ORAL 1-27 mouth. ity of 10:49: [place] [address] Medical Branch acetaminoph Yes 325mg Take 325 U nivers en 325 mg 1-27 mg by ity of tablet 10:49: mouth. [place] [address] Medical Branch Venlafaxine Yes Take by Uni vers 37.5 mg 1-27 mouth ity of TR24 10:49: daily. Medical Branch erenumab-ao Yes inject Univ ers oe (AIMOVIG 1-27 under the ity of AUTOINJECTO 10:49: skin. [facility]) Medical Branch MULTIVITAMI Yes Take by Uni vers N ORAL 1-27 mouth. ity of 10:49: Medical Branch acetaminoph Yes 325mg Take 325 U nivers en 325 mg 1-27 mg by ity of tablet 10:49: mouth. Medical Branch Venlafaxine Yes Take by Uni vers 37.5 mg 1-27 mouth ity of TR24 10:49: daily. Medical Branch erenumab-ao Yes inject Univ ers oe (AIMOVIG 1-27 under the ity of AUTOINJECTO 10:49: skin. [facility]) Medical Branch MULTIVITAMI Yes Take by Uni vers N ORAL 1-27 mouth. ity of 10:49: Medical Branch acetaminoph Yes 325mg Take 325 U nivers en 325 mg 1-27 mg by ity of tablet 10:49: mouth. Medical Branch Venlafaxine Yes Take by Uni vers 37.5 mg 1-27 mouth ity of TR24 10:49: daily. Medical Branch erenumab-ao Yes inject Univ ers oe (AIMOVIG 1-27 under the ity of AUTOINJECTO 10:49: skin. [facility]) Medical Branch MULTIVITAMI Yes Take by Uni vers N ORAL 1-27 mouth. ity of 10:49: Medical Branch acetaminoph Yes 325mg Take 325 U nivers en 325 mg 1-27 mg by ity of tablet 10:49: mouth. Medical Branch Venlafaxine Yes Take by Uni vers 37.5 mg 1-27 mouth ity of TR24 10:49: daily. [place] Medical [facility] erenumab-ao Yes inject Univ ers oe (AIMOVIG 1-27 under the ity of AUTOINJECTO 10:49: skin. [facility]) Medical Branch MULTIVITAMI Yes Take by Uni vers N ORAL 1-27 mouth. ity of 10:49: [place] Medical Branch acetaminoph Yes 325mg Take 325 U nivers en 325 mg 1-27 mg by ity of tablet 10:49: mouth. [place] Medical Branch Venlafaxine Yes Take by Uni vers 37.5 mg 1-27 mouth ity of TR24 10:49: daily. [place] Medical Branch erenumab-ao Yes inject Univ ers oe (AIMOVIG 27 under the ity of AUTOINJECTO 10:49: skin. [place]) Medical Branch MULTIVITAMI Yes Take by Uni vers N ORAL 1-27 mouth. ity of 10:49: [place] Medical Branch acetaminoph Yes 325mg Take 325 U nivers en 325 mg 1-27 mg by ity of tablet 10:49: mouth. Medical Branch Venlafaxine Yes Take by Uni vers 37.5 mg 1-27 mouth ity of TR24 10:49: daily. [place] Medical Branch triamcinolo 2022- No 2{spray Use 2 U nivers ne 55 mcg 1-23 -23 } Sprays in ity of nasal 16:03: 00:00 each [place] inhaler 06 :00 nostril. Medical Branch triamcinolo 2022- No 2{spray Use 2 U nivers ne 55 mcg 1-23 -23 } Sprays in ity of nasal 16:03: 00:00 each [place] inhaler 06 :00 nostril. Medical Branch triamcinolo 2022- No 2{spray Use 2 U nivers ne 55 mcg 1-23 -23 } Sprays in ity of nasal 16:03: 00:00 each [place] inhaler 06 :00 nostril. Medical Branch montelukast Yes [id number] 10mg Take 1 Univers (SINGULAIR) 1-23 tablet by ity of 10 mg 00:00: mouth in [place] tablet 00 the Medical morning. Branch azelastine Yes [id number] 1{spray Use 1 Univers 137 mcg 1-23 } [place] in ity of (0.1 %) 00:00: each [place] nasal spray 00 nostril in [facility]ical [facility] [place] morning and 1 [place] in the evening. Use in each nostril as directed triamcinolo 2022-0 Yes [id number] 2{spray Use 2 Univers ne 55 mcg 1-23 } Sprays in ity o f nasal 00:00: each [place] inhaler 00 nostril in Medica l the [place] morning. mupirocin 2 2022-0 Yes [id number] Apply to Univers % ointment 1-23 area(s) 3 ity of 00:00: (three) [place] 00 times Medical daily. Branch albuterol 2022-0 Yes [id number] 2{puff} Inhale 2 Univers (PROAIR 1-23 Puffs ity of HFA) 90 00:00: every 6 [place] mcg/actuati 00 (six) Medical on inhaler hours as Branc h needed for Wheezing or Shortness of Breath. montelukast 2022-0 Yes [id number] 10mg Take 1 Univers (SINGULAIR) 1-23 tablet by ity of 10 mg 00:00: mouth in [place] tablet 00 the Medical morning. Branch azelastine Yes [id number] 1{spray Use 1 Univers 137 mcg 1-23 } [place] in ity of (0.1 %) 00:00: each [place] nasal spray [address] [facility] morning and 1 [place] in the evening. Use in each nostril as directed triamcinolo 2022-0 Yes [id number] 2{spray Use 2 Univers ne 55 mcg 1-23 } Sprays in ity o f nasal 00:00: each inhaler 00 [facility] morning. mupirocin 2 2022-0 Yes [id number] Apply to Univers % ointment 1-23 area(s) 3 ity of 00:00: (three) [place] 00 times Medical daily. Branch albuterol 2022-0 Yes [id number] 2{puff} Inhale 2 Univers (PROAIR 1-23 Puffs ity of HFA) 90 00:00: every 6 [place] mcg/actuati 00 (six) Medical on inhaler hours as Branc h needed for Wheezing or Shortness of Breath. montelukast 2022-0 Yes [id number] 10mg Take 1 Univers (SINGULAIR) 1-23 tablet by ity of 10 mg 00:00: mouth in [place] tablet 00 the Medical morning. Branch azelastine Yes [id number] 1{spray Use 1 Univers 137 mcg 1-23 } [place] in ity of (0.1 %) 00:00: each [place] nasal spray 00 nostril in Me dical the [place] morning and 1 [place] in the evening. Use in each nostril as directed triamcinolo 0 Yes [id number] 2{spray Use 2 Univers ne 55 mcg 1-23 } Sprays in ity o f nasal 00:00: each [place] inhaler 00 nostril in Medica l the [place] morning. mupirocin 2 2022-0 Yes [id number] Apply to Univers % ointment 1-23 area(s) 3 ity of 00:00: (three) [place] 00 times Medical daily. Branch albuterol Yes [id number] 2{puff} Inhale 2 Univers (PROAIR 1-23 Puffs ity of HFA) 90 00:00: every 6 [place] mcg/actuati 00 (six) Medical on inhaler hours as Branc h needed for Wheezing or Shortness of Breath. montelukast Yes [id number] 10mg Take 1 Univers (SINGULAIR) 1-23 tablet by ity of 10 mg 00:00: mouth in [place] tablet 00 the Medical morning. Branch azelastine 0 Yes [id number] 1{spray Use 1 Univers 137 mcg 1-23 } [place] in ity of (0.1 %) 00:00: each [place] nasal spray 00 nostril in Ca dical the [place] morning and 1 [place] in the evening. Use in each nostril as directed triamcinolo 2022-0 Yes [id number] 2{spray Use 2 Univers ne 55 mcg 1-23 } Sprays in ity o f nasal 00:00: each [place] inhaler 00 nostril in Medica l the [place] morning. mupirocin 2 2022-0 Yes [id number] Apply to Univers % ointment 1-23 area(s) 3 ity of 00:00: (three) [place] 00 times Medical daily. Branch albuterol Yes [id number] 2{puff} Inhale 2 Univers (PROAIR 1-23 Puffs ity of HFA) 90 00:00: every 6 [place] mcg/actuati 00 (six) Medical on inhaler hours as Branc h needed for Wheezing or Shortness of Breath. montelukast 2022-0 Yes [id number] 10mg Take 1 Univers (SINGULAIR) 1-23 tablet by ity of 10 mg 00:00: mouth in [place] tablet 00 the Medical morning. Branch azelastine 2022-0 Yes [id number] 1{spray Use 1 Univers 137 mcg 1-23 } [place] in ity of (0.1 %) 00:00: each [place] nasal spray 00 nostril in Me dical the Branch morning and 1 [place] in the evening. Use in each nostril as directed triamcinolo 2022-0 Yes [id number] 2{spray Use 2 Univers ne 55 mcg 1-23 } Sprays in ity o f nasal 00:00: each [place] inhaler 00 nostril in Medica l the Branch morning. mupirocin 2 2022-0 Yes [id number] Apply to Univers % ointment 1-23 area(s) 3 ity of 00:00: (three) [place] 00 times Medical daily. Branch albuterol 0 Yes [id number] 2{puff} Inhale 2 Univers (PROAIR 1-23 Puffs ity of HFA) 90 00:00: every 6 [place] mcg/actuati 00 (six) Medical on inhaler hours as Branc h needed for Wheezing or Shortness of Breath. montelukast 2022-0 Yes [id number] 10mg Take 1 Univers (SINGULAIR) 1-23 tablet by ity of 10 mg 00:00: mouth in [place] tablet 00 the Medical morning. Branch azelastine 2022-0 Yes [id number] 1{spray Use 1 Univers 137 mcg 1-23 } [place] in ity of (0.1 %) 00:00: each [place] nasal spray 00 nostril in Me dical the Branch morning and 1 [place] in the evening. Use in each nostril as directed triamcinolo 2022-0 Yes [id number] 2{spray Use 2 Univers ne 55 mcg 1-23 } Sprays in ity o f nasal 00:00: each [place] inhaler 00 nostril in Medica l the Branch morning. mupirocin 2 Yes [id number] Apply to Univers % ointment 1-23 area(s) 3 ity of 00:00: (three) [place] 00 times Medical daily. Branch albuterol Yes [id number] 2{puff} Inhale 2 Univers (PROAIR 1-23 Puffs ity of HFA) 90 00:00: every 6 [place] mcg/actuati 00 (six) Medical on inhaler hours as Branc h needed for Wheezing or Shortness of Breath. montelukast Yes [id number] 10mg Take 1 Univers (SINGULAIR) 1-23 tablet by ity of 10 mg 00:00: mouth in [place] tablet 00 the Medical morning. Branch azelastine Yes [id number] 1{spray Use 1 Univers 137 mcg 1-23 } [place] in ity of (0.1 %) 00:00: each [place] nasal spray 00 nostril in Me dical the [place] morning and 1 [place] in the evening. Use in each nostril as directed triamcinolo Yes [id number] 2{spray Use 2 Univers ne 55 mcg 1-23 } Sprays in ity o f nasal 00:00: each [place] inhaler 00 nostril in Medica l the [place] morning. mupirocin 2 Yes [id number] Apply to Univers % ointment 1-23 area(s) 3 ity of 00:00: (three) [place] 00 times Medical daily. Branch albuterol Yes [id number] 2{puff} Inhale 2 Univers (PROAIR 1-23 Puffs ity of HFA) 90 00:00: every 6 [place] mcg/actuati 00 (six) Medical on inhaler hours as Branc h needed for Wheezing or Shortness of Breath. montelukast Yes [id number] 10mg Take 1 Univers (SINGULAIR) 1-23 tablet by ity of 10 mg 00:00: mouth in [place] tablet 00 the Medical morning. Branch azelastine Yes [id number] 1{spray Use 1 Univers 137 mcg 1-23 } [place] in ity of (0.1 %) 00:00: each [place] nasal spray 00 nostril in Me dical the [place] morning and 1 [place] in the evening. Use in each nostril as directed triamcinolo Yes [id number] 2{spray Use 2 Univers ne 55 mcg 1-23 [id number] } Sprays in ity of nasal 00:00: each [place] inhaler 00 nostril in Medica l the [place] morning. mupirocin 2 Yes [id number] Apply to Univers % ointment 1-23 area(s) 3 ity of 00:00: (three) [place] 00 times Medical daily. [place] albuterol Yes [id number] 2{puff} Inhale 2 Univers (PROAIR 1-23 Puffs ity of HFA) 90 00:00: every 6 [place] mcg/actuati 00 (six) Medical on inhaler hours as Branc h needed for Wheezing or Shortness of Breath. montelukast Yes [id number] 10mg Take 1 Univers (SINGULAIR) 1-23 tablet by ity of 10 mg 00:00: mouth in [place] tablet 00 the morning. [place] azelastine Yes [id number] 1{spray Use 1 Univers 137 mcg 1-23 } [place] in ity of (0.1 %) 00:00: each [place] nasal spray 00 nostril in Ca dical the [place] morning and 1 [place] in the evening. Use in each nostril as directed triamcinolo Yes [id number] 2{spray Use 2 Univers ne 55 mcg 1-23 [id number] } Sprays in ity of nasal 00:00: each inhaler 00 nostril in Medica l the [place] morning. mupirocin 2 Yes [id number] Apply to Univers % ointment 1-23 area(s) 3 ity of 00:00: (three) [place] 00 times Medical daily. [place] albuterol Yes [id number] 2{puff} Inhale 2 Univers (PROAIR 1-23 Puffs ity of HFA) 90 00:00: every 6 [place] mcg/actuati 00 (six) Medical on inhaler hours as Branc h needed for Wheezing or Shortness of Breath. montelukast 2022-0 Yes [id number] 10mg Take 1 Univers (SINGULAIR) 1-23 tablet by ity of 10 mg 00:00: mouth in [place] tablet 00 the Medical morning. [place] azelastine Yes [id number] 1{spray Use 1 Univers 137 mcg 1-23 } [place] in ity of (0.1 %) 00:00: each [place] nasal spray 00 nostril in Ca dical the [place] morning and 1 [place] in the evening. Use in each nostril as directed triamcinolo 2022-0 Yes [id number] 2{spray Use 2 Univers ne 55 mcg 1-23 [id number] } Sprays in ity of nasal 00:00: each [place] inhaler 00 nostril in Medica l the [place] morning. mupirocin 2 2022-0 Yes [id number] Apply to Univers % ointment 1-23 area(s) 3 ity of 00:00: (three) [place] 00 times Medical daily. [place] albuterol Yes [id number] 2{puff} Inhale 2 Univers (PROAIR 1-23 Puffs ity of HFA) 90 00:00: every 6 [place] mcg/actuati 00 (six) Medical on inhaler hours as Branc h needed for Wheezing or Shortness of Breath. montelukast Yes [id number] 10mg Take 1 Univers (SINGULAIR) 1-23 tablet by ity of 10 mg 00:00: mouth in [place] tablet 00 the morning. [place] azelastine Yes [id number] 1{spray Use 1 Univers 137 mcg 1-23 } [place] in ity of (0.1 %) 00:00: each [place] nasal spray 00 nostril in Ca dicla the [place] morning and 1 [place] in the evening. Use in each nostril as directed triamcinolo 2022-0 Yes [id number] 2{spray Use 2 Univers ne 55 mcg 1-23 [id number] } Sprays in ity of nasal 00:00: each [place] inhaler 00 nostril in Medica l the [place] morning. mupirocin 2 2022-0 Yes [id number] Apply to Univers % ointment 1-23 area(s) 3 ity of 00:00: (three) [place] 00 times Medical daily. [place] albuterol 0 Yes [id number] 2{puff} Inhale 2 Univers (PROAIR 1-23 Puffs ity of HFA) 90 00:00: every 6 [place] mcg/actuati 00 (six) Medical on inhaler hours as Branc h needed for Wheezing or Shortness of Breath. topiramate 2021- Yes 25mg Take 25 mg U nivers 25 mg 2-20 by mouth. ity of tablet 11:15: [place] [address] Medical Branch celecoxib 2021-04 Yes 200mg Take 200 Uni vers 200 mg 2-20 mg by ity of capsule 11:15: mouth once [place] now. Medical Branch topiramate 2021- Yes 25mg Take 25 mg U nivers 25 mg 2-20 by mouth. ity of tablet 11:15: [place] [address] Medical Branch celecoxib 2021- Yes 200mg Take 200 Uni vers 200 mg 2-20 mg by ity of capsule 11:15: mouth once [place] now. Medical Branch topiramate 2021- Yes 25mg Take 25 mg U nivers 25 mg 2-20 by mouth. ity of tablet 11:15: [place] [address] [facility] celecoxib 2021- Yes 200mg Take 200 Uni vers 200 mg 2-20 mg by ity of capsule 11:15: mouth [place] now. [facility] topiramate 2021- Yes 25mg Take 25 mg U nivers 25 mg 2-20 by mouth. ity of tablet 11:15: [place] [address] [facility] celecoxib 2021-1 Yes 200mg Take 200 Uni vers 200 mg 2-20 mg by ity of capsule 11:15: mouth [place] now. [facility] topiramate 2021- Yes 25mg Take 25 mg U nivers 25 mg 2-20 by mouth. ity of tablet 11:15: [place] [address] [facility] celecoxib 2-1 Yes 200mg Take 200 Uni vers 200 mg 2-20 mg by ity of capsule 11:15: mouth [place] now. [facility] topiramate 2021- Yes 25mg Take 25 mg U nivers 25 mg 2-20 by mouth. ity of tablet 11:15: [place] [address] [facility] celecoxib 2021-1 Yes 200mg Take 200 Uni vers 200 mg 2-20 mg by ity of capsule 11:15: mouth [place] now. [facility] topiramate 2021-1 Yes 25mg Take 25 mg U nivers 25 mg 2-20 by mouth. ity of tablet 11:15: [place] [address] [facility] celecoxib 2022-1 Yes 200mg Take 200 Uni vers 200 mg 2-20 mg by ity of capsule 11:15: mouth [place] now. [facility] topiramate 2021-1 Yes 25mg Take 25 mg U nivers 25 mg 2-20 by mouth. ity of tablet 11:15: [place] [address] [facility] celecoxib 2021- Yes 200mg Take 200 Uni vers 200 mg 2-20 mg by ity of capsule 11:15: mouth [place] now. [facility] topiramate 2021- Yes 25mg Take 25 mg U nivers 25 mg 2-20 by mouth. ity of tablet 11:15: [place] [address] [facility] celecoxib 2021- Yes 200mg Take 200 Uni vers 200 mg 2-20 mg by ity of capsule 11:15: mouth [place] now. [facility] topiramate 2021-1 Yes 25mg Take 25 mg U nivers 25 mg 2-20 by mouth. ity of tablet 11:15: [place] [address] [facility] celecoxib 2021-1 Yes 200mg Take 200 Uni vers 200 mg 2-20 mg by ity of capsule 11:15: mouth [place] now. [facility] topiramate 2021- Yes 25mg Take 25 mg U nivers 25 mg 2-20 by mouth. ity of tablet 11:15: [place] [address] [facility] celecoxib 2021-1 Yes 200mg Take 200 Uni vers 200 mg 2-20 mg by ity of capsule 11:15: mouth [place] now. [facility] topiramate 2021-1 Yes 25mg Take 25 mg U nivers 25 mg 2-20 by mouth. ity of tablet 11:15: [place] [address] [facility] celecoxib 2022-1 Yes 200mg Take 200 Uni vers 200 mg 2-20 mg by ity of capsule 11:15: mouth [place] now. [facility] topiramate 2021-1 Yes 25mg Take 25 mg U nivers 25 mg 2-20 by mouth. ity of tablet 11:15: [place] [address] [facility] celecoxib 2022-1 Yes 200mg Take 200 Uni vers 200 mg 2-20 mg by ity of capsule 11:15: mouth [place] now. [facility] topiramate 2022-1 Yes 25mg Take 25 mg U nivers 25 mg 2-20 by mouth. ity of tablet 11:15: [place] [address] [facility] celecoxib 2021-04 Yes 200mg Take 200 Uni vers 200 mg 2-20 mg by ity of capsule 11:15: mouth [place] now. [facility] topiramate 2021-04 Yes 25mg Take 25 mg U nivers 25 mg 2-20 by mouth. ity of tablet 11:15: [place] [address] [facility] celecoxib 2021-04 Yes 200mg Take 200 Uni vers 200 mg 2-20 mg by ity of capsule 11:15: mouth [place] now. [facility] topiramate 2021-04 Yes 25mg Take 25 mg U nivers 25 mg 2-20 by mouth. ity of tablet 11:15: [address] Branch celecoxib 2021-04 Yes 200mg Take 200 Uni vers 200 mg 2-20 mg by ity of capsule 11:15: mouth once [place] now. [facility] fluticasone 2021-04 Yes [id number] 1{puff} Inhale 1 [facility] propionate 2-20 Puff in ity of (FLOVENT 00:00: the [place] DISKUS) 50 00 morning Medica l mcg/actuati and 1 Puff Br anch on diskus in the inhaler evening. fluticasone 2021-04 Yes [id number] 1{puff} Inhale 1 [facility] propionate 2-20 Puff in ity of (FLOVENT 00:00: the [place] DISKUS) 50 00 morning Medica l mcg/actuati and 1 Puff Br anch on diskus in the inhaler evening. fluticasone 2021-04 Yes [id number] 1{puff} Inhale 1 [facility] propionate 2-20 Puff in ity of (FLOVENT 00:00: the [place] DISKUS) 50 00 morning Medica l mcg/actuati and 1 Puff Br anch on diskus in the inhaler evening. fluticasone 2021-04 Yes [id number] 1{puff} Inhale 1 [facility] propionate 2-20 Puff in ity of (FLOVENT 00:00: the [place] DISKUS) 50 00 morning Medica l mcg/actuati and 1 Puff Br anch on diskus in the inhaler evening. fluticasone 2021-04 Yes [id number] 1{puff} Inhale 1 [facility] propionate 2-20 Puff in ity of (FLOVENT 00:00: the [place] DISKUS) 50 00 morning Medica l mcg/actuati and 1 Puff Br anch on diskus in the inhaler evening. fluticasone 2021-04 Yes [id number] 1{puff} Inhale 1 [facility] propionate 2-20 Puff in ity of (FLOVENT 00:00: the [place] DISKUS) 50 00 morning Medica l mcg/actuati and 1 Puff Br anch on diskus in the inhaler evening. fluticasone 2021-04 Yes [id number] 1{puff} Inhale 1 [facility] propionate 2-20 Puff in ity of (FLOVENT 00:00: the [place] DISKUS) 50 00 morning Medica l mcg/actuati and 1 Puff Br anch on diskus in the inhaler evening. fluticasone 2021-04 Yes [id number] 1{puff} Inhale 1 [facility] propionate 2-20 Puff in ity of (FLOVENT 00:00: the [place] DISKUS) 50 00 morning Medica l mcg/actuati and 1 Puff Br anch on diskus in the inhaler evening. fluticasone 2021-04 Yes [id number] 1{puff} Inhale 1 [facility] propionate 2-20 Puff in ity of (FLOVENT 00:00: the [place] DISKUS) 50 00 morning Medica l mcg/actuati and 1 Puff Br anch on diskus in the inhaler evening. fluticasone 2021-04 Yes [id number] 1{puff} Inhale 1 [facility] propionate 2-20 Puff in ity of (FLOVENT 00:00: the [place] DISKUS) 50 00 morning Medica l mcg/actuati and 1 Puff Br anch on diskus in the inhaler evening. fluticasone 2021-04 Yes [id number] 1{puff} Inhale 1 [facility] propionate 2-20 Puff in ity of (FLOVENT 00:00: the [place] DISKUS) 50 00 morning Medica l mcg/actuati and 1 Puff Br anch on diskus in the inhaler evening. fluticasone 2021-04 Yes [id number] 1{puff} Inhale 1 [facility] propionate 2-20 Puff in ity of (FLOVENT 00:00: the [place] DISKUS) 50 00 morning Medica l mcg/actuati and 1 Puff Br anch on diskus in the inhaler evening. fluticasone 2021-04 Yes [id number] 1{puff} Inhale 1 [facility] propionate 2-20 Puff in ity of (FLOVENT 00:00: the [place] DISKUS) 50 00 morning Medica l mcg/actuati and 1 Puff Br anch on diskus in the inhaler evening. fluticasone 2021-04 Yes [id number] 1{puff} Inhale 1 [facility] propionate 2-20 Puff in ity of (FLOVENT 00:00: the [place] DISKUS) 50 00 morning Medica l mcg/actuati and 1 Puff Br anch on diskus in the inhaler evening. fluticasone 2021-04 Yes [id number] 1{puff} Inhale 1 [facility] propionate 2-20 Puff in ity of (FLOVENT 00:00: the [place] DISKUS) 50 00 morning Medica l mcg/actuati and 1 Puff Br anch on diskus in the inhaler evening. fluticasone 2021-04 Yes [id number] 1{puff} Inhale 1 [facility] propionate 2-20 Puff in ity of (FLOVENT 00:00: the [place] DISKUS) 50 00 morning Medica l mcg/actuati and 1 Puff Br anch on diskus in the inhaler evening. bromphenira 2021-04- No [id number] 10mL Take 10 mL [facility] mine-pseudo 2-20 12- by mouth 4 i ty of ephedrine-D 00:00: 05:59 (four) [place] as M (BROMFED 00 :00 times Medical DM) 2-30-10 daily as Bran ch mg/5 mL needed for syrup Congestion /Allergies for up to 10 days. bromphenira 2021-04- No [id number] 10mL Take 10 mL [facility] mine-pseudo 2-20 12-31 by mouth 4 i ty of ephedrine-D 00:00: 05:59 (four) [place] as M (BROMFED 00 :00 times Medical DM) 2-30-10 daily as Bran ch mg/5 mL needed for syrup Congestion /Allergies for up to 10 days. methylPREDN 2021-04 Yes Take by Uni vers ISolone 4 2-08 mouth ity of mg tablets 00:00: [place] 00 CTIONS. Medical follow Branch package directions , take with food and water cefdinir 2021-1 Yes 300mg Take 1 Univer s 300 mg 2-08 capsule by ity of capsule 00:00: mouth [place] 00 every 12 Medical (twelve) Branch hours. Start this if still congested after taking steroid pack for 3 days methylPREDN 2021-1 Yes Take by Uni vers ISolone 4 2-08 mouth ity of mg tablets 00:00: [place] CTIONS. Medical follow Branch package directions , take with food and water cefdinir 2021-1 Yes 300mg Take 1 Univer s 300 mg 2-08 capsule by ity of capsule 00:00: mouth [place] 00 every 12 Medical (twelve) Branch hours. Start this if still congested after taking steroid pack for 3 days methylPREDN 2021-1 Yes Take by Uni vers ISolone 4 2-08 mouth ity of mg tablets 00:00: SEE-INSTRU [place] 00 CTIONS. Medical follow Branch package directions , take with food and water cefdinir 2021-1 Yes 300mg Take 1 Univer s 300 mg 2-08 capsule by ity of capsule 00:00: mouth [place] 00 every 12 Medical (twelve) Branch hours. Start this if still congested after taking steroid pack for 3 days methylPREDN 2021-1 Yes Take by Uni vers ISolone 4 2-08 mouth ity of mg tablets 00:00: SEE-INSTRU [place] 00 CTIONS. Medical follow Branch package directions , take with food and water cefdinir 2021-1 Yes 300mg Take 1 Univer s 300 mg 2-08 capsule by ity of capsule 00:00: mouth [place] 00 every 12 Medical (twelve) Branch hours. Start this if still congested after taking steroid pack for 3 days methylPREDN 2-1 Yes Take by Uni vers ISolone 4 2-08 mouth ity of mg tablets 00:00: SEE-INSTRU [place] 00 CTIONS. Medical follow Branch package directions , take with food and water cefdinir 2-1 Yes 300mg Take 1 Univer s 300 mg 2-08 capsule by ity of capsule 00:00: mouth [place] 00 every 12 Medical (twelve) Branch hours. Start this if still congested after taking steroid pack for 3 days methylPREDN 2-1 Yes Take by Uni vers ISolone 4 2-08 mouth ity of mg tablets 00:00: SEE-INSTRU [place] 00 CTIONS. Medical follow Branch package directions , take with food and water cefdinir 2021-1 Yes 300mg Take 1 Univer s 300 mg 2-08 capsule by ity of capsule 00:00: mouth [place] 00 every 12 Medical (twelve) Branch hours. Start this if still congested after taking steroid pack for 3 days methylPREDN 2021- Yes Take by Uni vers ISolone 4 2-08 mouth ity of mg tablets 00:00: SEE-INSTRU [place] 00 CTIONS. Medical follow Branch package directions , take with food and water cefdinir 2021- Yes 300mg Take 1 Univer s 300 mg 2-08 capsule by ity of capsule 00:00: mouth [place] 00 every 12 Medical (twelve) Branch hours. Start this if still congested after taking steroid pack for 3 days methylPREDN 2021- Yes Take by Uni vers ISolone 4 2-08 mouth ity of mg tablets 00:00: SEE-INSTRU [place] 00 CTIONS. Medical follow Branch package directions , take with food and water cefdinir 2021- Yes 300mg Take 1 Univer s 300 mg 2-08 capsule by ity of capsule 00:00: mouth [place] 00 every 12 Medical (twelve) Branch hours. Start this if still congested after taking steroid pack for 3 days methylPREDN 2021- Yes Take by Uni vers ISolone 4 2-08 mouth ity of mg tablets 00:00: SEE-INSTRU [place] 00 CTIONS. Medical follow Branch package directions , take with food and water cefdinir 2021-1 Yes 300mg Take 1 Univer s 300 mg 2-08 capsule by ity of capsule 00:00: mouth [place] 00 every 12 Medical (twelve) Branch hours. Start this if still congested after taking steroid pack for 3 days methylPREDN 2021-1 Yes Take by Uni vers ISolone 4 2-08 mouth ity of mg tablets 00:00: SEE-INSTRU [place] 00 CTIONS. Medical follow Branch package directions , take with food and water cefdinir 2-1 Yes 300mg Take 1 Univer s 300 mg 2-08 capsule by ity of capsule 00:00: mouth [place] 00 every 12 Medical (twelve) Branch hours. Start this if still congested after taking steroid pack for 3 days methylPREDN 2021-1 Yes Take by Uni vers ISolone 4 2-08 mouth ity of mg tablets 00:00: SEE-INSTRU [place] 00 CTIONS. Medical follow Branch package directions , take with food and water cefdinir 2021-1 Yes 300mg Take 1 Univer s 300 mg 2-08 capsule by ity of capsule 00:00: mouth [place] 00 every 12 Medical (twelve) Branch hours. Start this if still congested after taking steroid pack for 3 days methylPREDN 2021-1 Yes Take by Uni vers ISolone 4 2-08 mouth ity of mg tablets 00:00: SEE-INSTRU [place] 00 CTIONS. Medical follow Branch package directions , take with food and water cefdinir 2021-1 Yes 300mg Take 1 Univer s 300 mg 2-08 capsule by ity of capsule 00:00: mouth [place] 00 every 12 Medical (twelve) Branch hours. Start this if still congested after taking steroid pack for 3 days methylPREDN 2021-1 Yes Take by Uni vers ISolone 4 2-08 mouth ity of mg tablets 00:00: SEE-INSTRU [place] 00 CTIONS. Medical follow Branch package directions , take with food and water cefdinir 2021-1 Yes 300mg Take 1 Univer s 300 mg 2-08 capsule by ity of capsule 00:00: mouth [place] 00 every 12 Medical (twelve) Branch hours. Start this if still congested after taking steroid pack for 3 days methylPREDN 2021-1 Yes Take by Uni vers ISolone 4 2-08 mouth ity of mg tablets 00:00: SEE-INSTRU [place] 00 CTIONS. Medical follow Branch package directions , take with food and water cefdinir 2021-1 Yes 300mg Take 1 Univer s 300 mg 2-08 capsule by ity of capsule 00:00: mouth [place] 00 every 12 Medical (twelve) Branch hours. Start this if still congested after taking steroid pack for 3 days methylPREDN 2-1 Yes Take by Uni vers ISolone 4 2-08 mouth ity of mg tablets 00:00: SEE-INSTRU [place] 00 CTIONS. Medical follow Branch package directions , take with food and water cefdinir 2-1 Yes 300mg Take 1 Univer s 300 mg 2-08 capsule by ity of capsule 00:00: mouth [place] 00 every 12 Medical (twelve) Branch hours. Start this if still congested after taking steroid pack for 3 days methylPREDN 2021- Yes Take by Uni vers ISolone 4 2-08 mouth ity of mg tablets 00:00: SEE-INSTRU [place] 00 CTIONS. Medical follow Branch package directions , take with food and water cefdinir 2021-04 Yes 300mg Take 1 Univer s 300 mg 2-08 capsule by ity of capsule 00:00: mouth [place] 00 every 12 Medical (twelve) Branch hours. Start this if still congested after taking steroid pack for 3 days methylPREDN 2021- Yes Take by Uni vers ISolone 4 2-08 mouth ity of mg tablets 00:00: SEE-INSTRU [place] 00 CTIONS. Medical follow Branch package directions , take with food and water cefdinir 2021-04 Yes 300mg Take 1 Univer s 300 mg 2-08 capsule by ity of capsule 00:00: mouth [place] 00 every 12 Medical (twelve) Branch hours. Start this if still congested after taking steroid pack for 3 days Venlafaxine 2021-0 Yes Take by Uni vers 37.5 mg 7-13 mouth ity of TR24 22:28: daily. [place] [facility] celecoxib 2021-0 Yes 200mg Take 200 Uni vers (CELEBREX) 7-13 mg by ity of 200 mg 22:28: mouth once [place] capsule 03 now. Medical Branch Venlafaxine 2021-0 Yes Take by Uni vers 37.5 mg 7-13 mouth ity of TR24 22:28: daily. [place] [facility] celecoxib 2-0 Yes 200mg Take 200 Uni vers (CELEBREX) 7-13 mg by ity of 200 mg 22:28: mouth once [place] capsule 03 now. Medical Branch Venlafaxine 2-0 Yes Take by Uni vers 37.5 mg 7-13 mouth ity of TR24 22:28: daily. [place] [facility] Venlafaxine 2021-0 Yes Take by Uni vers 37.5 mg 7-13 mouth ity of TR24 22:28: daily. [place] [facility] Venlafaxine 2021-0 Yes Take by Uni vers 37.5 mg 7-13 mouth ity of TR24 22:28: daily. [address] Venlafaxine Yes Take by Uni vers 37.5 mg 7-13 mouth ity of TR24 22:28: daily. [address] Venlafaxine Yes Take by Uni vers 37.5 mg 7-13 mouth ity of TR24 22:28: daily. [address] Venlafaxine Yes Take by Uni vers 37.5 mg 7-13 mouth ity of TR24 22:28: daily. [address] Venlafaxine Yes Take by Uni vers 37.5 mg 7-13 mouth ity of TR24 22:28: daily. [address] Venlafaxine Yes Take by Uni vers 37.5 mg 7-13 mouth ity of TR24 22:28: daily. [address] Venlafaxine Yes Take by Uni vers 37.5 mg 7-13 mouth ity of TR24 22:28: daily. [address] Venlafaxine Yes Take by Uni vers 37.5 mg 7-13 mouth ity of TR24 22:28: daily. [address] erenumab-ao Yes inject Univ ers oe (AIMOVIG 7-12 under the ity of AUTOINJECTO 10:31: skin. [address] MULTIVITAMI Yes Take by Uni vers N ORAL 7-12 mouth. ity of 10:31: [address] Magnesium Yes Take by Unive rs 250 mg Tab 7-12 mouth. ity of 10:31: [address] acetaminoph Yes 325mg Take 325 U nivers en 325 mg 7-12 mg by ity of tablet 10:31: mouth. [address] omeprazole Yes 20mg Take 20 mg U nivers 20 mg 7-12 by mouth. ity of capsule 10:31: [address] triamcinolo Yes 2{spray Use 2 Un amrit[place] ne 55 mcg 7-12 } Sprays in ity o f nasal 10:31: each [place] inhaler 55 nostril. [facility] topiramate Yes 25mg Take 25 mg U nivers (TOPAMAX) 7-12 by mouth. ity o f 25 mg 10:31: [place] tablet 55 [facility] erenumab-ao 0 Yes inject Univ ers oe (AIMOVIG 7-12 under the ity of AUTOINJECTO 10:31: skin. [place] R [place]) [address] [place] [address] MULTIVITAMI Yes Take by Uni vers N ORAL 7-12 mouth. ity of 10:31: [address] Magnesium 0 Yes Take by Unive rs 250 mg Tab 7-12 mouth. ity of 10:31: [address] acetaminoph 0 Yes 325mg Take 325 U nivers en 325 mg 7-12 mg by ity of tablet 10:31: mouth. [address] omeprazole 0 Yes 20mg Take 20 mg U nivers 20 mg 7-12 by mouth. ity of capsule 10:31: [address] triamcinolo Yes 2{spray Use 2 Un [place] ne 55 mcg 7-12 } Sprays in ity o f nasal 10:31: each [place] inhaler 55 nostril. Medical Branch topiramate 0 Yes 25mg Take 25 mg U nivers (TOPAMAX) 7-12 by mouth. ity o f 25 mg 10:31: [place] tablet [address] [place] [address] erenumab-ao Yes inject Univ ers oe (AIMOVIG 7-12 under the ity of AUTOINJECTO 10:31: skin. [place]) [address] [place] [address] MULTIVITAMI Yes Take by Uni vers N ORAL 7-12 mouth. ity of 10:31: [address] Magnesium 0 Yes Take by Unive rs 250 mg Tab 7-12 mouth. ity of 10:31: [address] acetaminoph Yes 325mg Take 325 U nivers en 325 mg 7-12 mg by ity of tablet 10:31: mouth. [address] omeprazole 0 Yes 20mg Take 20 mg U nivers 20 mg 7-12 by mouth. ity of capsule 10:31: [address] triamcinolo Yes 2{spray Use 2 Un [place] ne 55 mcg 7-12 } Sprays in ity o f nasal 10:31: each [place] inhaler 55 nostril. Medical Branch erenumab-ao Yes inject Univ ers oe (AIMOVIG 7-12 under the ity of AUTOINJECTO 10:31: skin. [place] R [place]) Medical Branch MULTIVITAMI Yes Take by Uni vers N ORAL 7-12 mouth. ity of 10:31: [place] [address] Medical Branch Magnesium 0 Yes Take by Unive rs 250 mg Tab 7-12 mouth. ity of 10:31: [place] [address] Medical Branch acetaminoph 0 Yes 325mg Take 325 U nivers en 325 mg 7-12 mg by ity of tablet 10:31: mouth. [place] [address] Medical Branch omeprazole 0 Yes 20mg Take 20 mg U nivers 20 mg 7-12 by mouth. ity of capsule 10:31: [place] [address] Medical Branch triamcinolo Yes 2{spray Use 2 Un [place] ne 55 mcg 7-12 } Sprays in ity o f nasal 10:31: each [place] inhaler 55 nostril. Medical Branch erenumab-ao Yes inject Univ ers oe (AIMOVIG 7-12 under the ity of AUTOINJECTO 10:31: skin. [facility]) Medical Branch MULTIVITAMI Yes Take by Uni vers N ORAL 7-12 mouth. ity of 10:31: [place] [address] Medical Branch Magnesium 0 Yes Take by Unive rs 250 mg Tab 7-12 mouth. ity of 10:31: [place] [address] Medical Branch acetaminoph Yes 325mg Take 325 U nivers en 325 mg 7-12 mg by ity of tablet 10:31: mouth. [place] [address] Medical Branch omeprazole 0 Yes 20mg Take 20 mg U nivers 20 mg 7-12 by mouth. ity of capsule 10:31: [place] [address] Medical Branch triamcinolo Yes 2{spray Use 2 Un [place] ne 55 mcg 7-12 } Sprays in ity o f nasal 10:31: each [place] inhaler 55 nostril. Medical Branch erenumab-ao Yes inject Univ ers oe (AIMOVIG 7-12 under the ity of AUTOINJECTO 10:31: skin. [place]) Medical Branch MULTIVITAMI 0 Yes Take by Uni vers N ORAL 7-12 mouth. ity of 10:31: [place] [address] Medical Branch Magnesium 0 Yes Take by Unive rs 250 mg Tab 7-12 mouth. ity of 10:31: [address] Branch acetaminoph Yes 325mg Take 325 U nivers en 325 mg 7-12 mg by ity of tablet 10:31: mouth. [address] omeprazole 0 Yes 20mg Take 20 mg U nivers 20 mg 7-12 by mouth. ity of capsule 10:31: [address] Branch triamcinolo Yes 2{spray Use 2 Un [place] ne 55 mcg 7-12 } Sprays in ity o f nasal 10:31: each [place] inhaler 55 nostril. Medical Branch erenumab-ao Yes inject Univ ers oe (AIMOVIG 7-12 under the ity of AUTOINJECTO 10:31: skin. [address] MULTIVITAMI Yes Take by Uni vers N ORAL 7-12 mouth. ity of 10:31: [address] Branch Magnesium Yes Take by Unive rs 250 mg Tab 7-12 mouth. ity of 10:31: [address] Branch acetaminoph Yes 325mg Take 325 U nivers en 325 mg 7-12 mg by ity of tablet 10:31: mouth. [address] omeprazole Yes 20mg Take 20 mg U nivers 20 mg 7-12 by mouth. ity of capsule 10:31: [address] triamcinolo Yes 2{spray Use 2 Un [place] ne 55 mcg 7-12 } Sprays in ity o f nasal 10:31: each [place] inhaler 55 nostril. Medical Branch erenumab-ao Yes inject Univ ers oe (AIMOVIG 7-12 under the ity of AUTOINJECTO 10:31: skin. [place] R [place]) Medical Branch MULTIVITAMI Yes Take by Uni vers N ORAL 7-12 mouth. ity of 10:31: [address] Branch Magnesium 0 Yes Take by Unive rs 250 mg Tab 7-12 mouth. ity of 10:31: [address] Branch acetaminoph 2022-0 Yes 325mg Take 325 U nivers en 325 mg 7-12 mg by ity of tablet 10:31: mouth. [address] omeprazole 0 Yes 20mg Take 20 mg U nivers 20 mg 7-12 by mouth. ity of capsule 10:31: [address] erenumab-ao 0 Yes inject Univ ers oe (AIMOVIG 7-12 under the ity of AUTOINJECTO 10:31: skin. [place] R [place]) [address] [place] [address] MULTIVITAMI 0 Yes Take by Uni vers N ORAL 7-12 mouth. ity of 10:31: [address] Magnesium 0 Yes Take by Unive rs 250 mg Tab 7-12 mouth. ity of 10:31: [address] acetaminoph 0 Yes 325mg Take 325 U nivers en 325 mg 7-12 mg by ity of tablet 10:31: mouth. [address] omeprazole 0 Yes 20mg Take 20 mg U nivers 20 mg 7-12 by mouth. ity of capsule 10:31: [address] erenumab-ao 0 Yes inject Univ ers oe (AIMOVIG 7-12 under the ity of AUTOINJECTO 10:31: skin. [facility]) [address] [place] [address] MULTIVITAMI Yes Take by Uni vers N ORAL 7-12 mouth. ity of 10:31: [address] Magnesium 0 Yes Take by Unive rs 250 mg Tab 7-12 mouth. ity of 10:31: [address] acetaminoph 0 Yes 325mg Take 325 U nivers en 325 mg 7-12 mg by ity of tablet 10:31: mouth. [address] omeprazole 0 Yes 20mg Take 20 mg U nivers 20 mg 7-12 by mouth. ity of capsule 10:31: [address] erenumab-ao 0 Yes inject Univ ers oe (AIMOVIG 7-12 under the ity of AUTOINJECTO 10:31: skin. [place] R [place]) [address] [place] [address] MULTIVITAMI 0 Yes Take by Uni vers N ORAL 7-12 mouth. ity of 10:31: [address] Magnesium 2021-0 Yes Take by Unive rs 250 mg Tab 7-12 mouth. ity of 10:31: [address] acetaminoph Yes 325mg Take 325 U nivers en 325 mg 7-12 mg by ity of tablet 10:31: mouth. [address] omeprazole 0 Yes 20mg Take 20 mg U nivers 20 mg 7-12 by mouth. ity of capsule 10:31: [address] erenumab-ao Yes inject Univ ers oe (AIMOVIG 7-12 under the ity of AUTOINJECTO 10:31: skin. [address] MULTIVITAMI Yes Take by Uni vers N ORAL 7-12 mouth. ity of 10:31: [address] Magnesium 0 Yes Take by Unive rs 250 mg Tab 7-12 mouth. ity of 10:31: [address] acetaminoph Yes 325mg Take 325 U nivers en 325 mg 7-12 mg by ity of tablet 10:31: mouth. [address] omeprazole 0 Yes 20mg Take 20 mg U nivers 20 mg 7-12 by mouth. ity of capsule 10:31: [address] Magnesium 0 Yes Take by Unive rs 250 mg Tab 7-12 mouth. ity of 10:31: [address] omeprazole 0 Yes 20mg Take 20 mg U nivers 20 mg 7-12 by mouth. ity of capsule 10:31: [address] Magnesium 0 Yes Take by Unive rs 250 mg Tab 7-12 mouth. ity of 10:31: [address] omeprazole 2021-0 Yes 20mg Take 20 mg U nivers 20 mg 7-12 by mouth. ity of capsule 10:31: [address] Magnesium 0 Yes Take by Unive rs 250 mg Tab 7-12 mouth. ity of 10:31: [address] omeprazole 2021-0 Yes 20mg Take 20 mg U nivers 20 mg 7-12 by mouth. ity of capsule 10:31: [address] Magnesium 2021-0 Yes Take by Unive rs 250 mg Tab 7-12 mouth. ity of 10:31: [address] omeprazole 2021-0 Yes 20mg Take 20 mg U nivers 20 mg 7-12 by mouth. ity of capsule 10:31: [place] [address] Medical Branch Magnesium Yes Take by Unive rs 250 mg Tab 7-12 mouth. ity of 10:31: [place] [address] Medical Branch omeprazole 0 Yes 20mg Take 20 mg U nivers 20 mg 7-12 by mouth. ity of capsule 10:31: [place] [address] [facility] Magnesium 0 Yes Take by [facility] rs 250 mg Tab 7-12 mouth. ity of 10:31: [place] [address] [facility] omeprazole 0 Yes 20mg Take 20 mg U nivers 20 mg 7-12 by mouth. ity of capsule 10:31: [place] [address] [facility] levocetiriz Yes [id number] 5mg Take 1 [facility] ine 5 mg 6-13 tablet by ity of tablet 00:00: mouth [place] 00 every Medical evening. Branch azelastine Yes [id number] 1{spray Use 1 [facility] 137 mcg 6-13 } [place] in ity of (0.1 %) 00:00: each [place] nasal spray 00 nostril 2 Med ical (two) Branch times daily. Use in each nostril as directed montelukast Yes [id number] 10mg Take 1 [facility] (SINGULAIR) 6-13 tablet by ity of 10 mg 00:00: mouth [place] tablet 00 daily. Medical Branch levocetiriz 0 Yes [id number] 5mg Take 1 [facility] ine 5 mg 6-13 tablet by ity of tablet 00:00: mouth [place] 00 every Medical evening. Branch azelastine 0 Yes [id number] 1{spray Use 1 [facility] 137 mcg 6-13 } [place] in ity of (0.1 %) 00:00: each [place] nasal spray 00 nostril 2 Med ical (two) Branch times daily. Use in each nostril as directed montelukast 0 Yes [id number] 10mg Take 1 [facility] (SINGULAIR) 6-13 tablet by ity of 10 mg 00:00: mouth [place] tablet 00 daily. Medical Branch levocetiriz Yes [id number] 5mg Take 1 [facility] ine 5 mg 6-13 tablet by ity of tablet 00:00: mouth [place] 00 every Medical evening. Branch azelastine Yes [id number] 1{spray Use 1 [facility] 137 mcg 6-13 } [place] in ity of (0.1 %) 00:00: each [place] nasal spray 00 nostril 2 Med ical (two) Branch times daily. Use in each nostril as directed montelukast Yes [id number] 10mg Take 1 [facility] (SINGULAIR) 6-13 tablet by ity of 10 mg 00:00: mouth [place] tablet 00 daily. Medical Branch levocetiriz 0 Yes [id number] 5mg Take 1 [facility] ine 5 mg 6-13 tablet by ity of tablet 00:00: mouth [place] 00 every Medical evening. Branch azelastine Yes [id number] 1{spray Use 1 [facility] 137 mcg 6-13 } [place] in ity of (0.1 %) 00:00: each [place] nasal spray 00 nostril 2 Med ical (two) Branch times daily. Use in each nostril as directed montelukast Yes [id number] 10mg Take 1 [facility] (SINGULAIR) 6-13 tablet by ity of 10 mg 00:00: mouth [place] tablet 00 daily. Medical Branch levocetiriz Yes [id number] 5mg Take 1 [facility] ine 5 mg 6-13 tablet by ity of tablet 00:00: mouth [place] 00 every Medical evening. Branch azelastine Yes [id number] 1{spray Use 1 [facility] 137 mcg 6-13 } [place] in ity of (0.1 %) 00:00: each [place] nasal spray 00 nostril 2 Med ical (two) Branch times daily. Use in each nostril as directed montelukast Yes [id number] 10mg Take 1 [facility] (SINGULAIR) 6-13 tablet by ity of 10 mg 00:00: mouth [place] tablet 00 daily. Medical Branch levocetiriz 0 Yes [id number] 5mg Take 1 [facility] ine 5 mg 6-13 tablet by ity of tablet 00:00: mouth [place] 00 every Medical evening. Branch azelastine Yes [id number] 1{spray Use 1 [facility] 137 mcg 6-13 } [place] in ity of (0.1 %) 00:00: each [place] nasal spray 00 nostril 2 Med ical (two) Branch times daily. Use in each nostril as directed montelukast 2021-0 Yes [id number] 10mg Take 1 [facility] (SINGULAIR) 6-13 tablet by ity of 10 mg 00:00: mouth [place] tablet 00 daily. Medical Branch levocetiriz 0 Yes [id number] 5mg Take 1 [facility] ine 5 mg 6-13 tablet by ity of tablet 00:00: mouth [place] 00 every Medical evening. Branch azelastine 0 Yes [id number] 1{spray Use 1 [facility] 137 mcg 6-13 } [place] in ity of (0.1 %) 00:00: each [place] nasal spray 00 nostril 2 Med ical (two) Branch times daily. Use in each nostril as directed montelukast Yes [id number] 10mg Take 1 [facility] (SINGULAIR) 6-13 tablet by ity of 10 mg 00:00: mouth [place] tablet 00 daily. Medical Branch levocetiriz 0 Yes [id number] 5mg Take 1 [facility] ine 5 mg 6-13 tablet by ity of tablet 00:00: mouth [place] 00 every Medical evening. Branch levocetiriz 0 Yes [id number] 5mg Take 1 [facility] in[facility] 5 mg 6-13 tablet by ity of tablet 00:00: mouth [place] 00 every Medical evening. Branch levocetiriz 0 Yes [id number] 5mg Take 1 [facility] in[facility] 5 mg 6-13 tablet by ity of tablet 00:00: mouth [place] 00 every Medical evening. Branch levocetiriz 2021-0 Yes [id number] 5mg Take 1 [facility] in[facility] 5 mg 6-13 tablet by ity of tablet 00:00: mouth [place] 00 every Medical evening. Branch levocetiriz 2021-0 Yes [id number] 5mg Take 1 [facility] ine 5 mg 6-13 tablet by ity of tablet 00:00: mouth [place] 00 every Medical evening. Branch levocetiriz 0 Yes [id number] 5mg Take 1 [facility] ine 5 mg 6-13 tablet by ity of tablet 00:00: mouth [place] 00 every Medical evening. Branch levocetiriz 2021-0 Yes [id number] 5mg Take 1 [facility] ine 5 mg 6-13 tablet by ity of tablet 00:00: mouth [place] 00 every Medical evening. Branch levocetiriz Yes [id number] 5mg Take 1 [facility] ine 5 mg 6-13 tablet by ity of tablet 00:00: mouth [place] 00 every Medical evening. Branch levocetiriz Yes [id number] 5mg Take 1 [facility] ine 5 mg 6-13 tablet by ity of tablet 00:00: mouth [place] 00 every Medical evening. Branch levocetiriz Yes [id number] 5mg Take 1 [facility] ine 5 mg 6-13 tablet by ity of tablet 00:00: mouth [place] 00 every Medical evening. Branch levocetiriz Yes [id number] 5mg Take 1 [facility] ine 5 mg 6-13 tablet by ity of tablet 00:00: mouth [place] 00 every Medical evening. Branch azelastine 2022- No [id number] 1{spray Use 1 [facility] 137 mcg 6-13 -23 } [place] in ity of (0.1 %) 00:00: 00:00 each [place] nasal spray 00 :00 nostril 2 Med ical (two) Branch times daily. Use in each nostril as directed montelukast 2022- No [id number] 10mg Take 1 [facility] (SINGULAIR) 6-01 05-23 tablet by it y of 10 mg 00:00: 00:00 mouth [place] tablet 00 :00 daily. Medical Branch azelastine 2022- No [id number] 1{spray Use 1 [facility] 137 mcg 6-13 -23 } [place] in ity of (0.1 %) 00:00: 00:00 each [place] nasal spray 00 :00 nostril 2 Med ical (two) Branch times daily. Use in each nostril as directed montelukast 2022- No [id number] 10mg Take 1 [facility] (SINGULAIR) 6-13 -23 tablet by it y of 10 mg 00:00: 00:00 mouth [place] tablet 00 :00 daily. Medical Branch azelastine No [id number] 1{spray Use 1 [facility] 137 mcg 6-13 -23 } [place] in ity of (0.1 %) 00:00: 00:00 each [place] nasal spray 00 :00 nostril 2 Med ical (two) Branch times daily. Use in each nostril as directed montelukast 2022- No [id number] 10mg Take 1 [facility] (SINGULAIR) 09-29 tablet by it y of 10 mg 00:00: 00:00 mouth [place] tablet 00 :00 daily. Medical Branch albuterol Yes [id number] 2{puff} Inhale 2 [facility] (PROAIR 2-15 Puffs ity of HFA) 90 00:00: every 6 [place] mcg/actuati 00 (six) Medical on inhaler hours as Branc h needed for Wheezing or Shortness of Breath. albuterol Yes [id number] 2{puff} Inhale 2 [facility] (PROAIR 2-15 Puffs ity of HFA) 90 00:00: every 6 [place] mcg/actuati 00 (six) Medical on inhaler hours as Branc h needed for Wheezing or Shortness of Breath. albuterol Yes [id number] 2{puff} Inhale 2 [facility] (PROAIR 2-15 Puffs ity of HFA) 90 00:00: every 6 [place] mcg/actuati 00 (six) Medical on inhaler hours as Branc h needed for Wheezing or Shortness of Breath. albuterol Yes [id number] 2{puff} Inhale 2 [facility] (PROAIR 2-15 Puffs ity of HFA) 90 00:00: every 6 [place] mcg/actuati 00 (six) Medical on inhaler hours as Branc h needed for Wheezing or Shortness of Breath. albuterol Yes [id number] 2{puff} Inhale 2 [facility] (PROAIR 2-15 Puffs ity of HFA) 90 00:00: every 6 [place] mcg/actuati 00 (six) Medical on inhaler hours as Branc h needed for Wheezing or Shortness of Breath. albuterol Yes [id number] 2{puff} Inhale 2 [facility] (PROAIR 2-15 Puffs ity of HFA) 90 00:00: every 6 [place] mcg/actuati 00 (six) Medical on inhaler hours as Branc h needed for Wheezing or Shortness of Breath. albuterol Yes [id number] 2{puff} Inhale 2 [facility] (PROAIR 2-15 Puffs ity of HFA) 90 00:00: every 6 [place] mcg/actuati 00 (six) Medical on inhaler hours as Branc h needed for Wheezing or Shortness of Breath. albuterol 2022- No [id number] 2{puff} Inhale 2 [facility] (PROAIR 2-15 01-23 Puffs ity of HFA) 90 00:00: 00:00 every 6 [place] mcg/actuati 00 :00 (six) Medical on inhaler hours as Branc h needed for Wheezing or Shortness of Breath. albuterol 2022- No [id number] 2{puff} Inhale 2 [facility] (PROAIR 2-15 01-23 Puffs ity of HFA) 90 00:00: 00:00 every 6 [place] mcg/actuati 00 :00 (six) Medical on inhaler hours as Branc h needed for Wheezing or Shortness of Breath. albuterol 2022- No [id number] 2{puff} Inhale 2 [facility] (PROAIR 2-15 01-23 Puffs ity of HFA) 90 00:00: 00:00 every 6 [place] mcg/actuati 00 :00 (six) Medical on inhaler hours as Branc h needed for Wheezing or Shortness of Breath. norethindro Yes [id number] .35mg Take 1 [facility] ne 0.35 mg 1-19 100 tablet by ity of tablet 00:00: mouth [place] 00 daily. Medical Branch norethindro Yes [id number] .35mg Take 1 [facility] ne 0.35 mg 1-19 100 tablet by ity of tablet 00:00: mouth [place] 00 daily. Medical Branch norethindro Yes [id number] .35mg Take 1 [facility] ne 0.35 mg 1-19 100 tablet by ity of tablet 00:00: mouth [place] 00 daily. Medical Branch norethindro Yes [id number] .35mg Take 1 [facility] ne 0.35 mg 1-19 100 tablet by ity of tablet 00:00: mouth [place] 00 daily. Medical Branch norethindro 0 Yes [id number] .35mg Take 1 [facility] ne 0.35 mg 1-19 100 tablet by ity of tablet 00:00: mouth [place] 00 daily. Medical Branch norethindro 2021-0 Yes [id number] .35mg Take 1 [facility] ne 0.35 mg 1-19 100 tablet by ity of tablet 00:00: mouth [place] 00 daily. [facility] Branch norethindro 2021-0 Yes [id number] .35mg Take 1 Univers ne 0.35 mg 1-19 100 tablet by ity of tablet 00:00: mouth [place] 00 daily. Medical Branch norethindro 2021-0 Yes [id number] .35mg Take 1 [facility] ne 0.35 mg 1-19 100 tablet by ity of tablet 00:00: mouth [place] 00 daily. [facility] Branch norethindro 2021-0 Yes [id number] .35mg Take 1 [facility] ne 0.35 mg 1-19 100 tablet by ity of tablet 00:00: mouth [place] 00 daily. [facility] Branch norethindro 2021-0 Yes [id number] .35mg Take 1 [facility] ne 0.35 mg 1-19 100 tablet by ity of tablet 00:00: mouth [place] 00 daily. Medical Branch norethindro 2021-0 Yes [id number] .35mg Take 1 [facility] ne 0.35 mg 1-19 100 tablet by ity of tablet 00:00: mouth [place] 00 daily. [facility] Branch norethindro 2021-0 Yes [id number] .35mg Take 1 [facility] ne 0.35 mg 1-19 100 tablet by ity of tablet 00:00: mouth [place] 00 daily. [facility] Branch norethindro 2021-0 Yes [id number] .35mg Take 1 [facility] ne 0.35 mg 1-19 100 tablet by ity of tablet 00:00: mouth [place] 00 daily. [facility] Branch norethindro 2021-0 Yes [id number] .35mg Take 1 [facility] ne 0.35 mg 1-19 100 tablet by ity of tablet 00:00: mouth [place] 00 daily. [facility] Branch norethindro 2021-0 Yes [id number] .35mg Take 1 [facility] ne 0.35 mg 1-19 100 tablet by ity of tablet 00:00: mouth [place] 00 daily. [facility] Branch norethindro 2021-0 Yes [id number] .35mg Take 1 [facility] ne 0.35 mg 1-19 100 tablet by ity of tablet 00:00: mouth [place] 00 daily. Medical Branch norethindro Yes [id number] .35mg Take 1 [facility] ne 0.35 mg 1-19 100 tablet by ity of tablet 00:00: mouth [place] 00 daily. Medical Branch norethindro Yes [id number] .35mg Take 1 [facility] ne 0.35 mg 1-19 100 tablet by ity of tablet 00:00: mouth [place] 00 daily. Medical Branch UBRELVY 2020-04 Yes TAKE ONE Un amrita mg Tab 2-06 (1) ity of 00:00: TABLET(S) [place] 00 BY MOUTH Medical AT ONSET Branch OF HEADACHE. MAY REPEAT IN 2 HOURS IF NO RELIEF (MAX OF 2 TABS IN 24 HOURS). UBRELVY 2020-04 Yes TAKE ONE Un amrita mg Tab 2-06 (1) ity of 00:00: TABLET(S) [place] 00 BY MOUTH Medical AT ONSET Branch OF HEADACHE. MAY REPEAT IN 2 HOURS IF NO RELIEF (MAX OF 2 TABS IN 24 HOURS). UBRELVY 2020-04 Yes TAKE ONE Un [place]rita mg Tab 2-06 (1) ity of 00:00: TABLET(S) [place] 00 BY MOUTH Medical AT ONSET Branch OF HEADACHE. MAY REPEAT IN 2 HOURS IF NO RELIEF (MAX OF 2 TABS IN 24 HOURS). UBRELVY 2020-04 Yes TAKE ONE Un [place] mg Tab 2-06 (1) ity of 00:00: TABLET(S) [place] 00 BY MOUTH Medical AT ONSET Branch OF HEADACHE. MAY REPEAT IN 2 HOURS IF NO RELIEF (MAX OF 2 TABS IN 24 HOURS). UBRELVY 2020-04 Yes TAKE ONE Un [place] mg Tab 2-06 (1) ity of 00:00: TABLET(S) [place] 00 BY MOUTH Medical AT ONSET Branch OF HEADACHE. MAY REPEAT IN 2 HOURS IF NO RELIEF (MAX OF 2 TABS IN 24 HOURS). UBRELVY 2020-04 Yes TAKE ONE Un [place] mg Tab 2-06 (1) ity of 00:00: TABLET(S) [place] 00 BY MOUTH Medical AT ONSET Branch OF HEADACHE. MAY REPEAT IN 2 HOURS IF NO RELIEF (MAX OF 2 TABS IN 24 HOURS). UBRELVY 2020-04 Yes TAKE ONE Un [place] mg Tab 2-06 (1) ity of 00:00: TABLET(S) [place] 00 BY MOUTH Medical AT ONSET Branch OF HEADACHE. MAY REPEAT IN 2 HOURS IF NO RELIEF (MAX OF 2 TABS IN 24 HOURS). UBRELVY 2020-04 Yes TAKE ONE Un [place] mg Tab 2-06 (1) ity of 00:00: TABLET(S) [place] 00 BY MOUTH Medical AT ONSET Branch OF HEADACHE. MAY REPEAT IN 2 HOURS IF NO RELIEF (MAX OF 2 TABS IN 24 HOURS). UBRELVY 2020-04 Yes TAKE ONE Un [place]rit[place] mg Tab 2-06 (1) ity of 00:00: TABLET(S) [place] 00 BY MOUTH Medical AT ONSET Branch OF HEADACHE. MAY REPEAT IN 2 HOURS IF NO RELIEF (MAX OF 2 TABS IN 24 HOURS). UBRELVY 2020-04 Yes TAKE ONE Un [place] mg Tab 2-06 (1) ity of 00:00: TABLET(S) [place] 00 BY MOUTH Medical AT ONSET Branch OF HEADACHE. MAY REPEAT IN 2 HOURS IF NO RELIEF (MAX OF 2 TABS IN 24 HOURS). UBRELVY 2020-04 Yes TAKE ONE Un [place] mg Tab 2-06 (1) ity of 00:00: TABLET(S) [place] 00 BY MOUTH Medical AT ONSET Branch OF HEADACHE. MAY REPEAT IN 2 HOURS IF NO RELIEF (MAX OF 2 TABS IN 24 HOURS). UBRELVY 2020-04 Yes TAKE ONE Un [place] mg Tab 2-06 (1) ity of 00:00: TABLET(S) [place] 00 BY MOUTH Medical AT ONSET Branch OF HEADACHE. MAY REPEAT IN 2 HOURS IF NO RELIEF (MAX OF 2 TABS IN 24 HOURS). UBRELVY 2020-04 Yes TAKE ONE Un [place] mg Tab 2-06 (1) ity of 00:00: TABLET(S) [place] 00 BY MOUTH Medical AT ONSET Branch OF HEADACHE. MAY REPEAT IN 2 HOURS IF NO RELIEF (MAX OF 2 TABS IN 24 HOURS). UBRELVY 2020-04 Yes TAKE ONE Un [place] mg Tab 2-06 (1) ity of 00:00: TABLET(S) [place] 00 BY MOUTH Medical AT ONSET Branch OF HEADACHE. MAY REPEAT IN 2 HOURS IF NO RELIEF (MAX OF 2 TABS IN 24 HOURS). UBRELVY 2020-04 Yes TAKE ONE Un [place] mg Tab 2-06 (1) ity of 00:00: TABLET(S) [place] 00 BY MOUTH Medical AT ONSET Branch OF HEADACHE. MAY REPEAT IN 2 HOURS IF NO RELIEF (MAX OF 2 TABS IN 24 HOURS). UBRELVY 2020-04 Yes TAKE ONE Un [place]rita mg Tab 2-06 (1) ity of 00:00: TABLET(S) [place] 00 BY MOUTH Medical AT ONSET Branch OF HEADACHE. MAY REPEAT IN 2 HOURS IF NO RELIEF (MAX OF 2 TABS IN 24 HOURS). UBRELVY 2020-04 Yes TAKE ONE Un [place] mg Tab 2-06 (1) ity of 00:00: TABLET(S) [place] 00 BY MOUTH Medical AT ONSET Branch OF HEADACHE. MAY REPEAT IN 2 HOURS IF NO RELIEF (MAX OF 2 TABS IN 24 HOURS). UBRELVY 2020-04 Yes TAKE ONE Un [place]rit[place] mg Tab 2-06 (1) ity of 00:00: TABLET(S) [place] 00 BY MOUTH Medical AT ONSET Branch OF HEADACHE. MAY REPEAT IN 2 HOURS IF NO RELIEF (MAX OF 2 TABS IN 24 HOURS). cetirizine 2018-04 Yes 10mg Q24H Take 10 mg M ethodi (ZyrTEC) 10 2-[address] MG tablet 15:53: daily as [facility] 17 needed for l allergies. omeprazole 2018-04 Yes 20mg QD Take 20 mg M ethodi (PriLOSEC) 2-[address] 20 MG 15:53: daily. [facility]osp[facility] capsule 17 l triamcinolo 2018-04 Yes 2{spray QD 2 sprays Methodi ne 2-06 } into each st (NASACORT) 15:53: nostril [facility] mcg 17 daily. l nasal inhaler azelastine 2018-04 Yes 1{spray Q.5D 1 spray M ethodi (ASTELIN) 2-06 } into each st 137 mcg 15:53: nostril 2 Hospi ta (0.1 %) 17 (two) l nasal spray times a day. Use in each nostril as directed acetaminoph 2018-04 Yes 325mg Q6H Take 325 M ethodi en 2-[address] (TYLENOL) 15:53: mouth [facility] 325 MG 17 every 6 l tablet (six) hours as needed for fever. cetirizine 2018-04 Yes 10mg Q24H Take 10 mg M ethodi (ZyrTEC) 10 2-[address] MG tablet 15:53: daily as [facility] 17 needed for l allergies. omeprazole 2018-04 Yes 20mg QD Take 20 mg M [facility]i (PriLOSEC) 2-[address] 20 MG 15:53: daily. [facility]osp[facility] capsule 17 l triamcinolo 2018-04 Yes 2{spray QD 2 sprays Methodi ne 2-06 } into each st (NASACORT) 15:53: nostril [facility] 55 mcg 17 daily. l nasal inhaler azelastine 2018-04 Yes 1{spray Q.5D 1 spray M ethodi (ASTELIN) 2-06 } into each st 137 mcg 15:53: nostril 2 Hospi ta (0.1 %) 17 (two) l nasal spray times a day. Use in each nostril as directed acetaminoph 2018-04 Yes 325mg Q6H Take 325 M ethodi en 2-[address] (TYLENOL) 15:53: mouth [facility] 325 MG 17 every 6 l tablet (six) hours as needed for fever. ibuprofen Yes Q6H every 6 Metho di (ADVIL) 800 8-19 (six) st MG tablet 00:00: hours as [facility] 00 needed. l ibuprofen 0 Yes Q6H every 6 Metho di (ADVIL) 800 8-19 (six) st MG tablet 00:00: hours as [facility] 00 needed. l montelukast Yes 10mg Take 10 mg [facility] (SINGULAIR) 6-[address] 10 mg 00:00: [facility]osp[facility] tablet 00 l montelukast Yes 10mg Take 10 mg [facility] (SINGULAIR) 6-[address] 10 mg 00:00: [facility]osp[facility] tablet 00 l Prevacid 30 Prevacid 30 2017-04 Yes [facility] [place] MG Oral MG Oral 2-26 Physici Capsule Capsule 00:00: ans Delayed Delayed 00 Release Release Montelukast Montelukast 2017-04 Yes [facility] [place] Sodium 10 Sodium 10 2-26 Physi ci MG Oral MG Oral 00:00: ans Tablet Tablet 00 ZyrTEC ZyrTEC 2017-04 Yes [facility] [place] Allergy 10 Allergy 10 2-26 Phy sici MG Oral MG Oral 00:00: ans Capsule Capsule 00 Mometasone Mometasone 2017-04 Yes R.N. U T Furoate 50 Furoate 50 2-26 Phy sici MCG/ACT MCG/ACT 00:00: ans Nasal Nasal 00 Suspension Suspension Norethindro Norethindro 2014-04 Yes [facility] ne 0.35 MG ne 0.35 MG 0-15 WELLS TAKE ONE Physici Oral Tablet Oral Tablet 00:00: M.D. TAB DAILY ans 00 DISP: 90 DAY SUPPLY REFILL : 3 ++++ 90 day Supply +++++++++ 200 ACTUAT Yes 108MCG/A, [facility] [place] Albuterol 9-14 INHALATION l 0.09 16:45: , Q4H, as [place] MG/ACTUAT 00 needed for Metered wheezing, Dose # 9 gm, 0 Inhaler Refill(s) [ProAir HFA] 200 ACTUAT Yes 108MCG/A, [place] Albuterol 9-14 INHALATION l 0.09 16:45: , Q4H, as [place] MG/ACTUAT 00 needed for Metered wheezing, Dose # 9 gm, 0 Inhaler Refill(s) [ProAir HFA] 200 ACTUAT Yes 108MCG/A, [facility] [place] Albuterol 9-14 INHALATION l 0.09 16:45: , Q4H, as [place] MG/ACTUAT 00 needed for Metered wheezing, Dose # 9 gm, 0 Inhaler Refill(s) [ProAir HFA] 200 ACTUAT Yes 108MCG/A, [place] Albuterol 9-14 INHALATION l 0.09 16:45: , Q4H, as [place] MG/ACTUAT 00 needed for Metered wheezing, Dose # 9 gm, 0 Inhaler Refill(s) [ProAir HFA] 200 ACTUAT No 2 puff, Patel kishor Albuterol 9-14 INHALATION l 0.09 16:42: , Q4H, for [place] MG/ACTUAT 00 wheezing, Metered # 9 gm, 0 Dose Refill(s) Inhaler [ProAir HFA] ProAir HFA No 1 - 2 Memori a 9-14 puffs, PO, l 16:42: Q4H, [place] 00 Wheezing / cough / shortness of breath, # 1 ea, 0 Refill(s) 200 ACTUAT No 2 puff, Patel kishor Albuterol 9-14 INHALATION l 0.09 16:42: , Q4H, for [place] MG/ACTUAT 00 wheezing, Metered # 9 gm, 0 Dose Refill(s) Inhaler [ProAir HFA] ProAir HFA No 1 - 2 Memori a 9-14 puffs, PO, l 16:42: Q4H, [place] 00 Wheezing / cough / shortness of breath, # 1 ea, 0 Refill(s) 200 ACTUAT No 2 puff, Patel kishor Albuterol 9-14 INHALATION l 0.09 16:42: , Q4H, for [place] MG/ACTUAT 00 wheezing, Metered # 9 gm, 0 Dose Refill(s) Inhaler [ProAir HFA] ProAir HFA No 1 - 2 Memori a 9-14 puffs, PO, l 16:42: Q4H, [place] 00 Wheezing / cough / shortness of breath, # 1 ea, 0 Refill(s) 200 ACTUAT No 2 puff, Patel kishor Albuterol 9-14 INHALATION l 0.09 16:42: , Q4H, for [place] MG/ACTUAT 00 wheezing, Metered # 9 gm, 0 Dose Refill(s) Inhaler [ProAir HFA] ProAir HFA No 1 - 2 Memori a 9-14 puffs, PO, l 16:42: Q4H, [place] 00 Wheezing / cough / shortness of breath, # 1 ea, 0 Refill(s) Ketorolac 0 No 4 days Memor ia 9-14 l 16:08: [place] 00 Ketorolac 2013-0 No 4 days Memor ia 9-14 l 16:08: [place] 00 Ketorolac 0 No 4 days Memor ia 9-14 l 16:08: [place] 00 Ketorolac 2013-0 No 4 days Memor ia 9-14 l 16:08: [place] 00 Benadryl No Notes: [facility] 9-14 (Same as: l 15:50: Benadryl) [place] Benadryl No Notes: [facility] 9-14 (Same as: l 15:50: Benadryl) [place] Benadryl No Notes: [facility] 9-14 (Same as: l 15:50: Benadryl) [place] Benadryl No Notes: [facility] 9-14 (Same as: l 15:50: Benadryl) [place] Methylpredn No Notes: Patel kishor isolone 9-14 (Same l 15:49: as:Solu-ME [place] 00 DROL, A-Methapre d) Methylpredn No Notes: Patel kishor isolone 9-14 (Same l 15:49: as:Solu-ME [place] 00 DROL, A-Methapre d) Methylpredn No Notes: Patel kishor isolone 9-14 (Same l 15:49: as:Solu-ME [place] 00 DROL, A-Methapre d) Methylpredn No Notes: Patel kishor isolone 9-14 (Same l 15:49: as:Solu-ME [place] 00 DROL, A-Methapre d) Saline No Notes: [facility] Flush 0.9% 9-14 (Same as: l 14:00: BD [place] Posiflush) Saline No Notes: [facility] Flush 0.9% 9-14 (Same as: l 14:00: BD [place] Posiflush) Saline No Notes: [facility] Flush 0.9% 9-14 (Same as: l 14:00: BD [place] Posiflush) Saline No Notes: [facility] Flush 0.9% 9-14 (Same as: l 14:00: BD [place] Posiflush) chlorhexidi No Notes: Patel kishor ne 9-14 (Same As: l gluconate 09:00: Peridex) Herm roscoe 1.2 MG/ML 00 Mouthwash chlorhexidi No Notes: Patel kishor ne 9-14 (Same As: l gluconate 09:00: Peridex) Herm roscoe 1.2 MG/ML 00 Mouthwash chlorhexidi 2013-0 No Notes: Patel kishor ne 12-31 (Same As: l gluconate 09:00: Peridex) Herm roscoe 1.2 MG/ML 00 Mouthwash chlorhexidi 2013-0 No Notes: Patel kishor ne 12-31 (Same As: l gluconate 09:00: Peridex) Herm roscoe 1.2 MG/ML 00 Mouthwash Magnesium 2013-0 No 2 gm, 50 Patel kishor Sulfate 9-14 mL, Route: l 08:33: IVPB, Drug [place] 00 form: INJ, ONCE, Dosing Weight 113.636, kg, Total dose = 2 gm, Start date: 12/31/13 3:33:00, Duration: 1 doses or times, Stop date: 12/31/13 3:33:00 Ketorolac 2014-0 No 4 days Memor ia 12-31 l 08:33: [place] 00 Magnesium 2014-0 No 2 gm, 50 Patel kishor Sulfate 9-14 mL, Route: l 08:33: IVPB, Drug [place] 00 form: INJ, ONCE, Dosing Weight 113.636, kg, Total dose = 2 gm, Start date: 12/31/13 3:33:00, Duration: 1 doses or times, Stop date: 12/31/13 3:33:00 Ketorolac 2014-0 No 4 days Memor ia 12-31 l 08:33: [place] 00 Magnesium 2014-0 No 2 gm, 50 Patel kishor Sulfate 9-14 mL, Route: l 08:33: IVPB, Drug [place] 00 form: INJ, ONCE, Dosing Weight 113.636, kg, Total dose = 2 gm, Start date: 12/31/13 3:33:00, Duration: 1 doses or times, Stop date: 12/31/13 3:33:00 Ketorolac 2014-0 No 4 days Memor ia - l 08:33: [place] 00 Magnesium 2014-0 No 2 gm, 50 Patel kishor Sulfate 9-14 mL, Route: l 08:33: IVPB, Drug [place] 00 form: INJ, ONCE, Dosing Weight 113.636, kg, Total dose = 2 gm, Start date: 12/31/13 3:33:00, Duration: 1 doses or times, Stop date: 12/31/13 3:33:00 Ketorolac 2013- No 4 days Memor ia 9-14 l 08:33: [place] 00 Saline No Notes: [facility] Flush 0.9% 9-14 (Same as: l 08:30: BD [place] 00 Posiflush) Ondansetron No Notes: Patel kishor 9-14 (Same as: l 08:30: Zofran) [place] Metoclopram No Notes: Patel kishor erin 9-14 (Same as: l 08:30: Reglan) [place] Saline No Notes: [facility] Flush 0.9% 9-14 (Same as: l 08:30: BD [place] 00 Posiflush) Ondansetron No Notes: Patel kishor 9-14 (Same as: l 08:30: Zofran) [place] Metoclopram No Notes: Patel kishor erin 9-14 (Same as: l 08:30: Reglan) [place] Saline No Notes: [facility] Flush 0.9% 9-14 (Same as: l 08:30: BD [place] 00 Posiflush) Ondansetron No Notes: Patel kishor 9-14 (Same as: l 08:30: Zofran) [place] Metoclopram No Notes: Patel kishor erin 9-14 (Same as: l 08:30: Reglan) [place] Saline No Notes: Memoria Flush 0.9% 9-14 (Same as: l 08:30: BD [place] 00 Posiflush) Ondansetron No Notes: Patel kishor 9-14 (Same as: l 08:30: Zofran) [place] Metoclopram No Notes: Patel kishor erin 9-14 (Same as: l 08:30: Reglan) Advair Advair Yes R.N. [place] Diskus AEPB Diskus AEPB P hysici ans Immunizations Ordered Filled Immunization Date Status Comments [facility] e Immunization Name Name Pneumococcal 20 2022-05-14 Completed [facility] Conjugate, PCV20 00:00:00 [facility] dical (Prevnar 20) Branch Pneumococcal 20 2022-05-14 Completed [facility] Conjugate, PCV20 00:00:00 [facility] dical (Prevnar 20) Branch Pneumococcal 20 2022-05-14 Completed [facility] Conjugate, PCV20 00:00:00 [facility] dical (Prevnar 20) Branch Pneumococcal 20 2022-05-14 Completed [facility] Conjugate, PCV20 00:00:00 [facility] dical (Prevnar 20) Branch Pneumococcal 20 2022-05-14 Completed [facility] Conjugate, PCV20 00:00:00 [facility] dical (Prevnar 20) Branch Pneumococcal 20 2022-05-14 Completed [facility] Conjugate, PCV20 00:00:00 [facility] dical (Prevnar 20) Branch Pneumococcal 20 2022-05-14 Completed Universit y of Conjugate, PCV20 00:00:00 [facility] dical (Prevnar 20) Branch Pneumococcal 20 2022-05-14 Completed Universit y of Conjugate, PCV20 00:00:00 [facility] dical (Prevnar 20) Branch Influenza Virus 2020-04-08 Completed Universit y of Vaccine Quad .5 mL 00:00:00 [facility] 6+ MO Branch Influenza Virus 2020-04-08 Completed Universit y of Vaccine Quad .5 mL 00:00:00 [facility] IM 6+ MO Branch Influenza Virus 2020-04-08 Completed Universit y of Vaccine Quad .5 mL 00:00:00 [facility] 6+ MO Branch Influenza Virus 2020-04-08 Completed Universit y of Vaccine Quad .5 mL 00:00:00 [facility] 6+ MO Branch Influenza Virus 2020-04-08 Completed Universit y of Vaccine Quad .5 mL 00:00:00 [facility] 6+ MO Branch Influenza Virus 2020-04-08 Completed Universit y of Vaccine Quad .5 mL 00:00:00 [facility] 6+ MO Branch Influenza Virus 2020-04-08 Completed Universit y of Vaccine Quad .5 mL 00:00:00 [facility] 6+ MO Branch Influenza Virus 2020-04-08 Completed Universit y of Vaccine Quad .5 mL 00:00:00 [facility] 6+ MO Branch Influenza Virus 2020-04-08 Completed Universit y of Vaccine Quad .5 mL 00:00:00 [facility] 6+ MO Branch Influenza Virus 2020-04-08 Completed Universit y of Vaccine Quad .5 mL 00:00:00 [facility] 6+ MO Branch Influenza Virus 2020-04-08 Completed Universit y of Vaccine Quad .5 mL 00:00:00 [facility] 6+ MO Branch Influenza Virus 2020-04-08 Completed Universit y of Vaccine Quad .5 mL 00:00:00 [facility] 6+ MO Branch Influenza Virus 2020-04-08 Completed Universit y of Vaccine Quad .5 mL 00:00:00 [facility] 6+ MO Branch Influenza Virus 2020-04-08 Completed Universit y of Vaccine Quad .5 mL 00:00:00 [facility] 6+ MO Branch Influenza Virus 2020-04-08 Completed Universit y of Vaccine Quad .5 mL 00:00:00 [facility] 6+ MO Branch Influenza Virus 2020-04-08 Completed Universit y of Vaccine Quad .5 mL 00:00:00 [facility] 6+ MO Branch Influenza Virus 2020-04-08 Completed Universit y of Vaccine Quad .5 mL 00:00:00 [facility] 6+ MO Branch Influenza Virus 2020-04-08 Completed Universit y of Vaccine Quad .5 mL 00:00:00 [facility] 6+ MO Branch DTAP 2015-04-24 Completed University of 00:00:00 [facility] DTAP 2015-04-24 Completed University of 00:00:00 [facility] DTAP 2015-04-24 Completed University of 00:00:00 [facility] DTAP 2015-04-24 Completed University of 00:00:00 [facility] DTAP 2015-04-24 Completed University of 00:00:00 [facility] DTAP 2015-04-24 Completed University of 00:00:00 [facility] DTAP 2015-04-24 Completed University of 00:00:00 [facility] DTAP 2015-04-24 Completed University of 00:00:00 [facility] Vital Signs Vital Name Observation Time Observation Value Comments Source Systolic blood 2022-05-15 113 mm[Hg] University of pressure 16:50:00 [facility] Diastolic blood 2022-05-15 79 mm[Hg] [place] o f pressure 16:50:00 [facility] Heart rate 2022-05-15 84 /min University 16:50:00 [facility] Respiratory rate 2022-05-15 18 /min University of 16:50:00 [facility] Body height 2022-05-15 162.6 cm University of 16:50:00 [facility] Body weight 2022-05-15 111.222 kg University of 16:50:00 [facility] BMI 2022-05-15 42.09 kg/m2 University of 16:50:00 [facility] Oxygen saturation 2022-05-15 98 /min University of in Arterial blood 16:50:[address] [facility] mariam by Pulse oximetry Branch Body weight 2022-05-14 109.861 kg University of 15:02:00 [facility] BMI 2022-05-14 41.57 kg/m2 University of 15:02:00 [facility] Oxygen saturation 2022-05-14 99 /min University of in Arterial blood 15:02:00 [facility] by Pulse oximetry [place] Systolic blood 2022-05-14 136 mm[Hg] University of pressure 15:02:00 [facility] Diastolic blood 2022-05-14 84 mm[Hg] University o f pressure 15:02:00 [facility] Heart rate 2022-05-14 72 /min University of 15:02:00 [facility] Body height 2022-05-14 162.6 cm University of 15:02:00 [facility] Body height 2022-05-11 162.6 cm University of 21:39:00 [facility] Body weight 2022-05-11 113.541 kg University of 21:39:00 [facility] BMI 2022-05-11 42.97 kg/m2 University of 21:39:00 [facility] Systolic blood 2022-04-07 117 mm[Hg] University of pressure 17:11:00 [facility] Diastolic blood 2022-04-07 81 mm[Hg] University o f pressure 17:11:00 [facility] Heart rate 2022-04-07 82 /min University of 17:11:00 [facility] Body temperature 2022-04-07 37.17 Anisa University of 17:11:00 [facility] Body height 2022-04-07 162.6 cm University of 17:11:00 [facility] Body weight 2022-04-07 107.094 kg University of 17:11:00 [facility] BMI 2022-04-07 40.53 kg/m2 University of 17:11:00 [facility] Oxygen saturation 2022-04-07 99 /min University of in Arterial blood 17:11:00 [facility] by Pulse oximetry Branch Body temperature 2021-12-18 36.89 Anisa [facility] 21:48:00 [facility] BP Systolic 2018-04-13 128 mm[Hg] Location: RUE; [facility] 10:53:00 Position: Sitting BP Diastolic 2018-04-13 87 mm[Hg] Location: RUE; [facility] 10:53:00 Position: Sitting Height 2018-04-13 64 [in_us] [facility] 10:53:00 Weight 2018-04-13 270 [lb_av] [facility] 10:53:00 Body Mass Index 2018-04-13 46.35 kg/m2 [facility] Calculated 10:53:00 Heart Rate 2018-04-13 91 /min [facility] 10:53:00 BP Systolic 2017-03-23 120 mm[Hg] Location: LUE; [facility] 09:56:00 Position: Sitting BP Diastolic 2017-03-23 84 mm[Hg] Location: LUE; [facility] 09:56:00 Position: Sitting Height 2017-03-23 64 [in_us] [facility] 09:56:00 Weight 2017-03-23 254 [lb_av] [facility] 09:56:00 Body Mass Index 2017-03-23 43.6 kg/m2 [facility] Calculated 09:56:00 Heart Rate 2013-12-31 [facility] 16:41:00 Temperature Oral 2013-12-31 96.2 F [facility] Jagdish rmann (F) 16:41:00 Diastolic (mm Hg) 2013-12-31 [facility] 16:41:00 Systolic (mm Hg) 2013-12-31 [facility] 16:41:00 Respitory Rate 2013-12-31 [facility] roscoe 16:41:00 Systolic (mm Hg) 2013-12-31 [facility] 12:28:00 Diastolic (mm Hg) 2013-12-31 [facility] 12:28:00 Respitory Rate 2013-12-31 [facility] roscoe 12:28:00 Heart Rate 2013-12-31 [facility] 12:28:00 Temperature Oral 2013-12-31 97.0 F [facility] He rmann (F) 12:28:00 BMI Calculated 2013-12-31 [facility] roscoe 11:38:00 Weight 2013-12-31 [facility] 11:38:00 Height 2013-12-31 162.56 cm Samanta Jaimes n 11:38:00 Respitory Rate 2013-12-31 [facility] ro[facility] 11:35:00 Heart Rate 2013-12-31 Samanta Sanchezan n 11:35:00 Diastolic (mm Hg) 2013-12-31 [facility] H ermann 11:35:00 Systolic (mm Hg) 2013-12-31 [facility] Jagdish rmann 11:35:00 Temperature Oral 2013-12-31 98.6 F [facility] rmann (F) 10:59:00 BMI Calculated 2013-12-31 [facility] 05:43:00 Height 2013-12-31 162.56 cm Samanta Jaimes n 05:43:00 Weight 2013-12-31 Samanta Jaimes n 05:43:00 Procedures Procedure Date / Time Performing Clinician Source Performed EXTERNAL PROVIDER 2022-08-24 05:01:00 Doctor Unassigned, No Univ [facility] RECORDS Name Medical Branch PNEUMOCOCCAL 20 2022-05-14 15:31:54 Geovanna [facility] [place] CONJUGATE (PREVNAR 20) Medical B ranch VACCINE MA Digital Mammo Screen 2018-04-13 00:00:00 [facility] Sree w [place] G0202 [QLH] CBC (INCLUDES 2017-03-23 00:00:00 [facility] DIFF/PLT) [QLH] TSH, 3RD 2017-03-23 00:00:00 [facility] GENERATION W/REFLEX TO FT4 [QLH] CMP W/EGFR 2017-03-23 00:00:00 [facility] [[facility]] FSH 2017-03-23 00:00:00 [facility] - GC/Chlamydia 2017-03-23 00:00:00 [facility] - Affirm VPIII 2017-03-23 00:00:00 [facility] (BV Panel) MA Digital Mammo 2017-03-23 00:00:00 [facility] Scre[facility] Sree G0202 History of Hand Surgery [facility] of [facility] History of Tubal [facility] Ligation [facility] Appendectomy [facility] History of Foot [facility] Car[facility] tunnel release [facility] ermroscoe section [facility] TL - Tub[facility] ligation [facility] Plan of Care Planned Activity Planned Date Details Comments Source Future Scheduled 2022-07-19 COVID-19 VACCINE (#1) [facility] Test 14:10:29 [code = COVID-19 VACCINE (#1)] Future Scheduled 2022-07-19 Hepatitis C screening [facility] Test 14:10:29 (procedure) [code = 914096313] Future Scheduled 2022-07-19 [facility] 14:10:29 malignant neoplasm of cervix (procedure) [code = 754764985] Future Scheduled 2022-07-19 [facility]AST [facility]CER [facility] Test 14:10:29 SCREENING [code = BREAST CANCER SCREENING] Future Scheduled 2022-07-[address] [facility] Test 14:10:29 [code = COLONOSCOPY SCREENING] Future Scheduled 2022-07-19 SHINGLES VACCINES (1 Met [facility] Test 14:10:29 of 2) [code = SHINGLES VACCINES (1 of 2)] Future Scheduled 2022-07-19 INFLUENZA VACCINE [facility] Test 14:10:29 [code = INFLUENZA VACCINE] Future Scheduled 2022-07-19 COVID-19 VACCINE (#1) [facility] Test 14:10:29 [code = COVID-19 VACCINE (#1)] Future Scheduled 2022-07-[address] [facility] Test 14:10:29 (procedure) [code = 386204631] Future Scheduled 2022-07-19 [facility] Test 14:10:29 malignant neoplasm of cervix (procedure) [code = 575793152] Future Scheduled 2022-07-19 [facility]CER [facility] Test 14:10:29 SCREENING [code = BREAST CANCER SCREENING] Future Scheduled 2022-07-[address] [facility] Test 14:10:29 [code = COLONOSCOPY SCREENING] Future Scheduled 2022-07-19 SHINGLES VACCINES (1 Met [facility] Test 14:10:29 of 2) [code = SHINGLES VACCINES (1 of 2)] Future Scheduled 2022-07-19 INFLUENZA VACCINE [facility] Test 14:10:29 [code = INFLUENZA VACCINE] Encounters Start End Encounter Admission Attending Care Care Encounter Source Date/Time Date/Time Type Type Clinicians Facility Department ID 2021-10-14 Outpatient [facility] [id number] Univers 07:48:34 DELROY ity of [facility] 2022-08-24 2022-08-24 Orders Doctor ABHI [id number] Univers 00:00:00 00:00:00 Only Unassigned, TOM 350.1.13.10 ity of [place] [facility] 4.2.7.2.686 Maurice as [phone] [facility] 009 Branch 2022-08-13 2022-08-13 Outpatient EM Lisseth, [facility] CICI [id number] [facility] 09:37:00 09:37:00 Matheus 18 [facility] 2022-08-11 2022-08-11 Telephone Pranay RUST [id number] Univers 00:00:00 00:00:00 [facility] [id number] it y of [place] 4.2.7.2.686 Maurice as MARI?BLEA [phone] Ca dical JESSICAEY [address] MEDICAL OFFICE BUILDING 2022-08-03 2022-08-03 Patient Prince, RUST [id number] Univers 00:00:00 00:00:00 Secure Msg Fernanda N CLAUDIA [id number] ity of [facility] [place]2.[place] [id number] [facility] [address] 2022-05-15 2022-05-15 Office Salud RUST [id number] Univers 10:30:00 11:00:00 Visit Ashley AC 350.1.13.10 i ty [place] [phone] Me dicanh JUAN 085 [facility] 2022-05-15 2022-05-15 Outpatient R ASHLEY CRAWLEY [facility] [id number] Univers 10:30:00 10:30:00 ASHLEY CRAWLEY i ty of [facility] 2022-05-14 2022-05-14 Outpatient R GEOVANNA [facility] [id number] Univers 09:00:00 09:43:41 RUBEN ity of [facility] 2022-05-14 2022-05-14 [facility] [id number] Univers 09:00:00 09:43:41 Visit Ruben HEALTH 350.1.13.10 it y of [place] 4.2.7.2.686 Maurice as MARI?BLEA [phone] [address] OFFICE BUILDING 2022-05-11 2022-05-11 Office Prince, [facility] [id number] Univers 15:30:00 15:45:00 [facility] 350.1.13.10 i ty of [place].2.[place] [facility] [phone] [facility] PRIMARY & [address] SPECIALTY CARE 2022-05-11 2022-05-11 Outpatient R KRISTEL [facility] [id number] Univers 15:30:00 15:30:00 FERNANDA italisa [facility] 2022-05-05 2022-05-05 Telephone [facility] [id number] Univers 00:00:00 00:00:00 Ruben [facility] 350.1.13.10 it y of [place] 4.2.7.2.686 Maurice as MARI?BLEA [id number] [address] OFFICE [facility] 2022-04-30 2022-04-30 Telephone Prince, [facility] 1.2.840.114 [id number] Univers 00:00:00 00:00:00 Fernanda Yamilet HEALTH 350.1.13.10 i ty of [place] 4.2.7.2.[place] [facility] [phone] [facility] PRIMARY & [facility] Branch SPECIALTY CARE 2022-04-07 2022-04-07 Outpatient R DEEPA [facility] [id number] Univers 11:00:00 12:54:38 SHIRA earl [facility] 2022-04-07 2022-04-07 Office Deepa R[place] 1.2.840.114 [id number] Univers 11:00:00 11:30:00 Visit Shira HEALTH 350.1.13.10 it y of [place] 4.2.7.2.686 Maurice as MARI?BLEA [id number] Ca jazlyn BOSCH [address] MEDICAL OFFICE BUILDING 2022-04-07 2022-04-07 Outpatient R LINSEY SNYDER [facility] [id number] Univers 09:00:00 09:00:00 ity of [facility] 2022-04-07 2022-04-07 Outpatient R LINSEY SNYDER [facility] [id number] Univers 09:00:00 09:00:00 ity of [facility] 2022-04-07 2022-04-07 Outpatient R LINSEY SNYDER [facility] [id number] Univers 09:00:00 09:00:00 ity of [facility] 2022-03-26 2022-03-26 Patient Kristel R[place] [id number] Univers 00:00:00 00:00:00 Secure Msg Fernanda N CLAUDIA 350.1.13.10 ity [facility] [place].7.2.[place] [phone] [facility] [address] 2021-12-18 2021-12-18 [id number] Univers 16:42:22 23:59:00 DELROY ity [facility] 2021-12-18 2021-12-18 [facility] 1.2.840.114 [id number] Univers 16:42:22 23:59:00 Encounter Delroy PRIMARY 350.1.13.10 ity of [place]2.[place] [id number] Ca dical [address] 2021-12-18 2021-12-18 Office [facility] 1.2.840.114 [id number] Univers 15:30:00 17:45:07 Visit Delroy PRIMARY 350.1.13.10 it y of [place].2.[place] [id number] Ca dical [address] 2021-12-18 2021-12-[address] [facility] [id number] Univers 15:30:00 17:45:07 DELROY ity [facility] 2021-12-18 2021-12-18 [facility] [id number] Univers 15:30:00 15:30:00 DELROY ity of [facility] 2021-12-18 2021-12-18 [facility] [id number] Univers 15:30:00 15:30:00 DELROY ity of [facility] 2021-12-09 2021-12-09 Learning Consultant Room, [facility] Ortho Cast RUST 1. 2.840.114 [id number] Univers 08:00:00 09:24:26 Visit Panchbsamantha, Delroy SPECIALTY 350.1.13.1 0 ity of [place].2.[place] CENTER AT [phone] Ca jazlyn KVNGAlisa [address] [place] [address] 2021-12-09 2021-12-09 [facility] [id number] Univers 08:00:00 08:00:00 DELROY ity [facility] 2021-12-08 2021-12-08 Orders Doctor ABHI 1.2.840.114 [id number] Univers 00:00:00 00:00:00 Only Unassigned, TOM 350.1.13.10 ity of [place] [facility] 4.2.7.2.686 Maurice as [phone] [address] 2021-11-25 2021-11-25 Learning Consultant Room, [facility] Ortho Cast [place]UST 1. 2.840.114 [id number] Univers 09:00:00 09:13:41 Visit Pancimansamantha, Delroy SPECIALTY 350.1.13.1 0 ity of CARE 4.2.7.2.686 [facility] AT [phone] Ca elizaanh CALDERONAlisa [address] [place] [address] 2021-11-25 2021-11-25 Outpatient R LESVIA [facility] [id number] Univers 09:00:00 09:00:00 DELROY ity [facility] 2021-11-25 2021-11-25 [facility] [id number] Univers 09:00:00 09:00:00 DELROY ity [facility] 2021-11-25 2021-11-25 Patient Flores, RUST 1.2.840.114 [id number] Univers 00:00:00 00:00:00 Secure Msg Kizzy [facility] 350.1.13.10 ity [facility] 4.2.7.2.686 Maurice as MARI?BLEA [phone] Ca jazlyn [facility] [address] MEDICAL OFFICE [facility] 2021-11-25 2021-11-25 Patient Doctor RUST 1.2.840.114 [id number] Univers 00:00:00 00:00:00 Secure Msg Unassigned, HEALTH 350.1.13.10 ity of [place] 4.2.7.2.686 Maurice as MARI?BLEA [phone] [address] OFFICE [facility] 2021-11-20 2021-11-20 Learning Consultant Lab, [facility] 1.2.840.1 [id number] Univers 15:30:00 15:45:00 Visit Checo Metcalf [facility] 350.1.13.10 ity of [place] 4.2.7.2.686 Maurice as MARI?BLEA [id number] Ca jazlyn [facility] OFFICE [facility] 2021-11-20 2021-11-20 Outpatient Jeannie METCALF [facility] [id number] Univers 15:30:00 15:39:20 CHECO earl [facility] 2021-11-20 2021-11-20 [facility] 1.2.840.114 [id number] Univers 15:00:00 15:15:00 Visit [facility] 350.1.13.10 it y of [place] 4.2.7.2.686 Maurice as MARI?BLEA [id number] [address] OFFICE [facility] 2021-11-20 2021-11-20 Outpatient Jeannie METCALF [facility] [id number] Univers 15:00:00 15:00:00 CHECO mady [facility] 2021-11-11 2021-11-11 Office Felipe Millan RUST [id number] Univers 15:40:00 15:50:00 Visit SPECIALTY 350.1.13.10 ity of [place]2.[place] AT [phone] Ca jazlyn DRISCOLL [address] [place] 2021-11-11 2021-11-11 Outpatient R FELIPE MILLAN [facility] [id number] Univers 15:40:00 15:40:00 ity of [facility] 2021-11-11 2021-11-11 Outpatient R FELIPE MILLAN [facility] [id number] Univers 15:40:00 15:40:00 ity of [facility] 2021-11-11 2021-11-11 Orders Doctor ABHI 1.2.840.114 [id number] Univers 00:00:00 00:00:00 Only Unassigned, TOM 350.1.13.10 ity of [place] [facility] 4.2.7.2.686 Maurice as [id number] [facility] [address] 2021-11-06 2021-11-06 Patient Felipe Millan RUST 1.2.162.003 [id number] Univers 00:00:00 00:00:00 Secure Msg SPECIALTY 350.1.13.10 it[place] AT [phone] Ca jazlyn DRISCOLL 198 [facility] 2021-10-28 2021-10-28 Outpatient R LESVIA [facility] S[facility] [id number] Univers 05:07:00 10:28:00 DELROY ity of [facility] 2021-10-28 2021-10-28 Hospital KENDAL Lakhani 1.2.840.114 [id number] Univers 05:07:00 10:28:00 Encounter Delroy TOM 350.1.13.10 ity of [facility] 4.2.7.2.686 Maurice as [id number] [facility] [address] 2021-10-28 2021-10-28 Surgery KENDAL Lakhani 1.2.840.114 [id number] Univers 07:00:00 09:59:00 Delroy TOM 350.1.13.10 it y of HOSPITAL 4.2.7.2.686 Maurice as [id number] [facility] [address] 2021-10-28 2021-10-28 Anesthesia Lorenza Weiner 1.2 .840.114 [id number] Univers 07:15:00 08:40:00 Event Analisa Gustavo TOM 350.1. 13.10 ity of [facility] 4.2.7.2.686 Maurice as [id number] [facility] [address] 2021-10-28 2021-10-28 Outpatient R [facility] [id number] Univers 05:07:00 05:07:00 DELROY ity [facility] 2021-10-28 2021-10-28 Orders Doctor ABHI 1.2.840.114 [id number] Univers 00:00:00 00:00:00 Only Unassigned, TOM 350.1.13.10 ity of [place] [facility]OS[facility]ITAL 4.2.7.2.686 Maurice as [id number] [facility] [address] 2021-10-25 2021-10-25 Laboratory Only, Adc Test RUST 1.2.840. 114 [id number] Univers 09:15:00 09:30:00 Only Delroy Lakhani 350.1.13.10 ity of [place] 4.2.7.2.686 [facility] [id number] [facility] [address] 2021-10-25 2021-10-25 [id number] Univers 09:15:00 09:15:00 DELROY ity [facility] 2021-10-25 2021-10-25 Orders Doctor MOE 1.2.840.114 [id number] Univers 00:00:00 00:00:00 Only Unassigned, TOM 350.1.13.10 ity of [place] [facility]OSPITAL 4.2.7.2.686 Maurice as [id number] [facility] [address] 2021-10-13 2021-10-13 [facility] 1.2.840.114 [id number] Univers 08:58:00 23:59:00 Encounter Delroy SPECIALTY 350.1.13.10 ity of [facility] 4.2.7.2.686 [facility] [phone] Ca jazlyn DRISCOLL [address] [place] [address] 2021-10-13 2021-10-13 [facility] 1.2.840.114 [id number] Univers 09:00:00 09:31:55 Visit Delroy SPECIALTY 350.1.13.10 ity [facility] 4.2.7.2.[address] [facility] AT [phone] Ca jazlyn [place] [address] [place] 2021-10-13 2021-10-13 Outpatient R LESVIA [facility] [id number] Univers 09:00:00 09:31:55 DELROY ity [facility] 2021-10-13 2021-10-13 Outpatient R LESVIA [facility] [id number] Univers 09:00:00 09:00:00 DELROY ity [facility] 2021-09-29 2021-09-29 Office [facility] [id number] Univers 16:00:00 16:15:00 Visit [facility] 350.1.13.10 i [facility] 4.2.7.2.686 [facility] [id number] [facility] PRIMARY & [address] SPECIALTY CARE 2021-09-29 2021-09-29 Outpatient R KRISTEL [facility] [id number] Univers 16:00:00 16:00:00 [facility] ity of [facility] 2021-07-10 2021-07-10 Outpatient [facility] [id number] [address] [place] 00:00:00 00:00:00 049 Method i 2021-07-10 2021-07-10 Outpatient [facility] [id number] [address] [place] 00:00:00 00:00:[address] 2021-06-11 2021-06-11 Outpatient R LINSEY SNYDER [facility] [id number] Univers 15:33:04 23:59:00 ity of [facility] 2021-06-11 2021-06-11 [facility] Linsey Snyder RUST 1.2.840.114 [id number] Univers 15:20:00 23:59:00 Encounter YASHIRA 350.1.13.10 ity [facility] 4.2.7.2.686 [facility] [phone] [facility] [address] 2021-06-11 2021-06-11 Outpatient R LINSEY SNYDER [facility] [id number] Univers 15:33:04 15:33:04 ity of [facility] 2021-06-11 2021-06-11 Orders Doctor ABHI 1.2.840.114 [id number] Univers 00:00:00 00:00:00 Only Unassigned, TOM 350.1.13.10 ity of [place] [facility] 4.2.7.2.686 Maurice [id number] [facility] [address] 2021-06-10 2021-06-10 Outpatient R LINSEY SNYDER [facility] [id number] Univers 10:30:00 11:59:32 ity of [facility] 2021-06-10 2021-06-10 Office Claudio [facility] 1.2.840.114 [id number] Univers 10:30:00 11:59:32 Visit ARLETTE 350.1.13.10 it y of WOMEN'S 4.2.7.2.686 [facility] [id number] [facility] [address] 2021-05-30 2021-05-30 [facility] 1.2.659.145 [id number] Univers 00:00:00 00:00:00 Fernanda Zarco CLAUDIA 350.1.13.10 ity of [facility] [place] [phone] [facility] [address] 2021-05-13 2021-05-13 Outpatient R LINSEY SNYDER [facility] [id number] Univers 10:30:00 10:30:00 ity of [facility] 2021-05-08 2021-05-08 Outpatient R LINSEY SNYDER [facility] [id number] Univers 00:00:00 00:00:00 ity of [facility] 2021-05-06 2021-05-06 Patient CaseRenetta RUST SHANIQUA 1.2.840.114 [id number] Univers 00:00:00 00:00:00 Secure Msg Cortez CHONG 350.1.13.10 it[place] [facility] [phone] [address] 2021-05-06 2021-05-06 Case Linsey Snyder [facility] 1.2.840.114 [id number] Univers 00:00:00 00:00:00 Management ARLETTE 350.1.13.10 it[place] [facility] [id number] [address] 2021-04-23 2021-04-23 Office Pranay RUST 1.2.840.114 [id number] Univers 13:15:00 13:30:00 Visit [facility] 350.1.13.10 it y of [place] 4.2.7.2.686 Maurice as MARI?BLEA [phone] Ca jazlyn BOSCH [address] [place] [address] MEDICAL OFFICE [facility] 2021-04-23 2021-04-23 Outpatient R METCALF [facility] [id number] Univers 13:15:00 13:15:00 [facility] 2021-04-17 2021-04-17 Telephone Linsey Snyder RUST 1.2.840.114 [id number] Univers 00:00:00 00:00:00 [place] 350.1.13.10 i ty [place] [id number] [facility] [address] 2021-04-09 2021-04-09 [facility], Ang - Db RUST 1.2.840.1 [id number] Univers 07:45:00 08:00:00 Visit Linsey Snyder 350.1.13.10 ity of [place] 4.2.7.2.686 Maurice as MARI?BLEA [phone] Ca jazlyn BOSCH [address] MEDICAL OFFICE BUILDING 2021-04-09 2021-04-09 Outpatient R [facility] [id number] Univers 07:45:00 07:45:00 ity [facility] 2021-04-09 2021-04-09 Outpatient R LINSEY SNYDER [facility] [id number] Univers 07:45:00 07:45:00 ity [facility] 2021-04-03 2021-04-03 Outpatient R LINSEY SNYDER [facility] [id number] Univers 08:30:00 09:27:44 ity of [facility] 2021-04-03 2021-04-03 Office Linsey Snyder [facility] 1.2.840.114 [id number] Univers 08:30:00 09:27:44 Visit ARLETTE 350.1.13.10 it y of [place].2.[place] [facility] [id number] [facility] [address] 2021-04-03 2021-04-03 Outpatient R LINSEY SNYDER [facility] [id number] Univers 08:30:00 09:27:44 ity of [facility] 2021-04-03 2021-04-03 Outpatient R LINSEY SNYDER [facility] [id number] Univers 08:30:00 08:30:00 ity of [facility] 2021-03-27 2021-03-27 Pre Visit MARIANNA Ralph 1.2.792.895 [id number] Univers 00:00:00 00:00:00 Outreach Caitlin KURTZ 350.1.13.10 i ty of [place].2.[place] [id number] [facility] [address] 2021-02-26 2021-02-26 Office Kristel RUST 1.2.527.466 [id number] Univers 07:51:47 08:06:47 Visit Fernanda Yamilet TAYLOR 350.1.13.10 ity of [facility] [place].2.[place] [phone] [facility] [address] 2021-02-26 2021-02-26 Outpatient R KRISTEL [facility] [id number] Univers 08:00:00 08:00:00 [facility] ity of [facility] 2021-02-26 2021-02-26 Orders Doctor ABHI 1.2.840.114 [id number] Univers 00:00:00 00:00:00 Only Unassigned, TOM 350.1.13.10 ity of [place] [facility] 4.2.7.2.686 Maurice as [id number] [facility] [address] 2020-12-17 2020-12-17 [facility] 1.2.439.570 [id number] Univers 00:00:00 00:00:00 Fernanda TAYLOR 350.1.13.10 ity [facility] [place].2.[place] [id number] [address] 2020-10-24 2020-10-24 Outpatient R SID [facility] [id number] Univers 11:15:00 11:15:00 MATT [facility] 2020-10-16 2020-10-16 Emergency ER Junito, [facility] [id number] 11:36:00 17:54:00 Julio -[id number] Rao Andinoan 2020-05-22 2020-05-22 Outpatient Jeannie PRINCE [facility] [id number] Univers 08:00:00 08:00:00 [facility] 2020-04-16 2020-04-16 Outpatient Jeannie HERNAN SNYDERN [facility] [id number] Univers 08:08:57 23:59:00 [facility] 2020-04-08 2020-04-08 Outpatient R [facility] [id number] Univers 15:30:00 15:30:00 [facility] 2020-04-01 2020-04-01 Outpatient Jeannie HERNAN SNYDERN [facility] [id number] Univers 13:30:00 13:30:00 [facility] 2019-11-22 2019-11-22 Outpatient Jeannie PRINCE [facility] [id number] Univers 09:00:00 09:00:00 [facility] 2019-10-31 2019-10-31 Outpatient Jeannie PRINCE [facility] [id number] Univers 09:00:00 09:00:00 [facility] 2019-07-10 2019-07-10 Outpatient LOREN [facility] [id number] [place] 00:00:00 00:00:00 , ESE [facility] 2019-06-29 2019-06-29 Outpatient Jeannie DIXON [facility] [id number] Univers 15:00:00 15:00:00 BAL earl [facility] 2019-06-21 2019-06-21 Outpatient Jeannie TOBIN [facility] [id number] Univers 09:50:09 23:59:00 RUBEN earl [facility] 2019-06-21 2019-06-21 Outpatient R GEOVANNA, [facility] [id number] Univers 00:00:00 00:00:00 RUBEN earl [facility] 2019-06-15 2019-06-15 Outpatient Jeannie TOBIN [facility] [id number] Univers 14:20:00 14:20:00 RUBEN earl [facility] 2019-03-24 2019-03-24 Outpatient LOREN [facility] [id number] [place] 00:00:00 00:00:00 , ESE [address] 2018-04-13 2018-04-13 [facility] [id number] [place] 10:45:00 10:45:00 t; Leda WERNER i, M.D. [facility] Elizabeth WERNER M.D. 2017-03-23 2017-03-23 [facility] [id number] [place] 10:00:00 10:00:00 t; Zahraa WERNERSpecjuancarlos [facility], M.D. [address] 2016-02-20 2016-02-20 Appointdona [facility] [id number] [place] 10:15:00 10:15:00 t; Madie WERNER i, M.D. ans MAGGIE, M.D. 2013-12-31 2013-12-31 [facility] [id number] [place] 05:43:00 17:20:00 Observatio r [place] 58 l n Patient [facility] 2013-12-31 2013-12-31 OBS nullFlavo [facility] [id number] [place] 05:43:00 17:20:00 Observatio r [place] 58 l n Patient [facility] 2013-12-31 2013-12-31 Outpatient [place], 2.16.840. 2.16.840.1. 4 [id number] 00:43:00 12:20:00 Kevin [id number]. [id number] 3.615.0.1 5.0.101 01 Results Test Description Test Time Test Comments Results Result Comments Source SURGICAL 2022-08-17 14:11:00 Test Item Value Reference Range Interpretation Comme nts SURGICAL RUN DATE: (test 08/17/22 [facility] Chaim Figueroa d - LAB PAGE 1 RUN TIME: 1411 Specimen Inquiry RUN USER: INTERFACE code = PATIENT: SARAH MCKEON LOC: MARKO U #: [id number] AGE/SX: 52/F ROOM: RE08/13/22[facility] DR: Matheus Silva MD : 74 BED: DIS: STA TUS: DEP [facility] TLOC: SPEC #: [id number]:PMC:[id number] RECD: 08/14/22525 STATUS: MARY JASMINE #: [id number] JOEL: 08/13/221425 SUBM DR: Matheus Silva MD ENTERE SP TYPE: SURGICAL OTHR DR: Checo Metcalf MD ORDERED: 83684, ANATOMIC SPEC, SPECIM EN TRACK COPIES TO: Matheus Silva MD [address] [place] [phone] Checo Metcalf MD [address] [place] [address] [place] [address] PROCEDURES: 883 07 (08/17/22-0) SPECIMEN TRACK (08/14/22) TISSUES: A. UTERUS - UTERUS, CERVIX, BILATERAL FA LLOPIAB TUBES, OVARIES FINAL DIAGNOSIS UTERUS, CERVIX, BILATERAL OVARIES AND FALLOPIAN TUBES, TOTAL HYSTE RECTOMY AND BILATERALSALPINGO/OOPHORECTOMY:- Cervix without dysplasia.- Proliferative endometrium.- Leiomyomata, 1.4 cm in greatest dimension.- Follicular cyst of left ovary, 4 cm in greatest dimension. - Benign serous cyst of right ovary and surface adhesion. - Unremarkable Fallopian tubes.- Specimen 1 18 g. GROSS DESCRIPTION Uterus with bilateral fallopian tubes and ovaries. Received is a uterus with at tachedovaries and segments of fallopian tubes. The uterus weighs 118 g and measures cornu tocornu 6.5 c m, posterior to anterior 4 cm and from fundus to cervix measures 10 cm. Thecervix measures 2.8 x 2 c m with a cervical os transverse diameter 0.7 cm. The uterus isbivalved to reveal a smooth pink cervica l canal. The endometrial cavity measures 3.3 x 2.4cm and covered by hemorrhagic endometrium of 0 .3 cm. Sectioning through the uterine wallreveal two white well-circumscribed nodules m easuring 0.6-1.4 cm in greatest dimension. The serosal surface is smooth. The attached right ovary jamey sures 4.2 x 2.9 x 2.7 cm. Cutsections reveal a cystic cavity filled with clear fluid and a nodular vogt rface. The adheredfallopian tube segment measure 2.3 cm in length a diameter of 1 cm. The left ovarymeasu res 4.8 x 4 x 3.5 cm. Cut sections reveal a serous sanguinous filled cyst measuring CONTINUED ON NEXT PAGE RUN DATE: 08/17/22 [facility] Chaim Figueroa [facility] PAGE 2 RUN TIME: 141 Specimen Inquiry RUN USER: INTERFACE SPEC #: [id number]:[facility]:[id number] PATIENT: SARAH LOVE #[id number] (Continued) GROSS DESCRIPTION (Continued ) 3.5 x 4 x 3.2 cm. The cystic lining is smooth. No papillary features are identifiedadhered to the cici face is fimbriated end and segment of fallopian tube measuring 3.2 cm inlength with a diameter of 1 cm. A1-A2 posterior and anterior cervix A3-A6 posterior and anterior endomyometriumA7-A9 right ov paola and fallopian bofmH26-E57 sections of left ovarian cyst and fallopian tube Technical tissue proces sing and slide preparation performed at [facility],[address], [place] [address] MICROSCOPI C DESCRIPTION Microscopic examination is performed and the findings are incorporated into the finaldiagnosis. Please see diagn osis for findings. Signed SIGNATURE ON Jhon Mercado 08/17/22 1411 END OF REPORT - XR CHEST 1 [id number] 18:34:00 [facility] 1970 Sex: FName: SARAH LOVE [facility] : 1970 Age/S: 52 / F [id number] Unit #: [id number] Loc: [place] [address] Phys: Syed Alatorre MD Acct: [id number] Dis Date: Status: PRESDC PHONE #: [phone] Exam Date: 08/10/2022 6338 FAX #: Reason: PRE OP EXAMS: CPT: [id number] XR CHEST 1 V 98101 Fluoro Time: DAP (Gy m2): Air Kerma (mGy): EXAM: - XR CHEST 1 V COMPARISON: None LOCATION: H57 HISTORY: 52 years-old Female with PRE OP TECHNIQUE: Single AP view of the chest. FINDINGS:The cardiomediastinal silhouette is within normal limits. The lungs are well aerated. No large pneumothorax or pleural effusion. Osseous structures and soft tissues demonstrate no acute findings. The v isualized upper abdomen is unremarkable. IMPRESSION: No acute cardiopulmonary abnormality. at 1834 Reported and signed by: Israel Ceja M.D. CC: Syed Alatorre MD; Matheus Silva MD; Checo Metcalf MD PAGE1 Signed Report Name: SARAH LOVE [facility] : 1970 Age/S: 52 / F [id number] Unit #: [id number] Loc: [place] [address] Phys: Syed Alatorre MD Acct: [id number] Dis Date: Status: PRE SDC PHONE #: [phone] Exam Date: 08/10/2022 1708 FAX #: Reason: PRE OP EXAMS:CPT: [id number] XR CHEST 1 V 70431 Fluoro Time: DAP (Gy m2): Air Kerma (mGy): (Continued) Technologist: Shasta Robison RT(R)(CT) Trnscb Date/Time: 08/10/2022 (1833) [id number] Orig Print D/T: S: 08/10/2022 (1836) PAGE 2 Signed Report BASIC METABOLIC [id number] 18:15:00 Test Item Value Reference Range Interpretation Comments SODIUM (test code 138 mmol/L 134-147 N = NA) POTASSIUM (test 3.6 mmol/L 3.4-5.0 N code = K) CHLORIDE (test 104 mmol/L 100-108 N code = CL) CARBON DIOXIDE 32 mmol/L 21-32 N (test code = CO2) ANION GAP (test 2.0 GAP calc 4.0-15.0 L code = GAP) GLUCOSE (test code 84 MG/DL 70-110 N = GLU) BLOOD UREA 14 MG/DL 7-18 N NITROGEN (test code = BUN) GLOMERULAR >=60 max >60 The Glomerular FILTRATION RATE estimate estGFR Filtratio n Rate is a (test code = GFR) calculated parameterbased on serum Creatinin e, patient age and sex. GFR valuesless than 60 mL/min/1.73 square meters are taras cative ofChronic Kidne y Disease. Values less than 15 mL/min/1.73squa re meters indicate Kidney failure. The calculation for GFR is based on the CK D-EPI (2020) calculat ion. This formulais race indifferent and is the recommended formula for GFR by the National Kidney Foundation for Adults.The GFR will not calculate i f the sex is unknown or if thepatient's ag e is <18 years. CREATININE (test 0.9 MG/DL 0.6-1.0 N code = CREAT) CALCIUM (test code 9.2 MG/DL 8.5-10.1 N = CA) CBC W/AUTO [id number] 17:48:00 Test Item Value Reference Range Interpretation Comments WHITE BLOOD CELL (test code = 10.6 K/mm3 3.5-11.0 N WBC) RED BLOOD CELL (test code = 4.53 M/mm3 4.70-6.10 L RBC) HEMOGLOBIN (test code = HGB) 13.6 G/DL 10.4-14.9 N HEMATOCRIT (test code = HCT) 40.8 % 31.5-44.1 N MEAN CELL VOLUME (test code = 90.1 Fl 84.5-98.6 N MCV) MEAN CELL HGB (test code = MCH) 30.0 pg 27.0-34.2 N MEAN CELL HGB CONCETRATION 33.3 G/DL 31.5-34.0 N (test code = MCHC) RED CELL DISTRIBUTION WIDTH 13.5 SD 11.5-14.5 N (test code = RDW) PLATELET COUNT (test code = 408 K/mm3 150-450 N PLT) MEAN PLATELET VOLUME (test code 10.60 fL 7.0-10.5 H = MPV) NEUTROPHIL % (test code = NT%) 64.8 % 40-76 N IMMATURE GRANULOCYTE % (test 0.4 % 0.0-5.0 N code = IG%) LYMPHOCYTE % (test code = LY%) 26.8 % 20.5-51.1 N MONOCYTE % (test code = MO%) 5.4 % 1.7-9.3 N EOSINOPHIL % (test code = EO%) 1.9 % 0.0-6.0 N BASOPHIL % (test code = BA%) 0.7 % 0.0-2.0 N NUCLEATED RBC % (test code = 0.0 /100WBC% 0.0-1.0 N NRBC%) NEUTROPHIL # (test code = NT#) 6.9 K/mm3 1.8-7.6 N IMMATURE GRANULOCYTE # (test 0.04 x10 3/uL 0.00-0.03 H code = IG#) LYMPHOCYTE # (test code = LY#) 2.9 K/mm3 0.6-3.2 N MONOCYTE # (test code = MO#) 0.6 K/mm3 0.3-1.1 N EOSINOPHIL # (test code = EO#) 0.2 K/mm3 0.0-0.4 N BASOPHIL # (test code = BA#) 0.1 K/mm3 0.0-0.1 N NUCLEATED RBC # (test code = 0.0 K/mm3 0.0-0.1 N NRBC#) MANUAL DIFF REQUIRED (test code NO DIFF/SCN CRITERIA = MDIFF) URINALYSIS [id number] 17:44:00 Test Item Value Reference Range Interpretation Comments UA GLUCOSE DIPSTICK (test NEGATIVE mg/dL NEG code = DGLUU) UA BILIRUBIN DIPSTICK (test NEGATIVE mg/dL NEG code = BILU) UA KETONE DIPSTICK (test NEGATIVE mg/dL NEG code = KETU) UA SPECIFIC GRAVITY (test <=1.005 SG 1.005-1.030 code = SGU) UA BLOOD DIPSTICK (test 3+ mg/DL NEG A code = AYAAN) UA PH DIPSTICK (test code = 6.0 pH UNITS 5.0-7.0 JANINE) UA PROTEIN DIPSTICK (test TRACE mg/dL NEG A code = PROU) UA UROBILINIOGEN DIPSTICK 0.2 mg/dL <2.0 (test code = URO) UA NITRITE DIPSTICK (test NEGATIVE SCREEN NEG code = REGLA) UA LEUKOCYTE ESTERASE NEGATIVE Leuk/mcL NEGATIVE DIPSTICK (test code = LEUU) Urine Specimen Type: Clean CatchUR HCG [id number] 17:44:00 Test Item Value Reference Range Interpretation Comments UR HCG QUAL (test code = HCGQLU) NEGATIVE NEGATIVE Urine Specimen Type: Clean Catch[[facility]] LIPID [id number] 08:42:00 Test Item Value Reference Range Interpretation Comments CHOLESTEROL, TOTAL; 143 mg/dl <200 N Normal (test code = 2093-3) HDL CHOLESTEROL; 39 mg/dl >50 Below Low Threshold (test code = 2085-9) TRIGLYCERIDES; 62 mg/dl <150 N Normal (test code = 2571-8) LDL-CHOLESTEROL; 90 {MG/DL MARIAM} N Reference range: Normal (test code = <100 [place] range 25522-4) <100 mg/dL for primary prevent ion; <70 mg/dL for patients with C HD or diabetic patien ts with > or = 2 C HD risk factors. L DL-C is now calculat ed using the Augustus-Kari calculation, wh ich is a validated novel method providin g better accuracy than the Friedewald equation in the estimation of L DL-C. Augustus SS et al . KUSUM. 2013;310( 19): 0626-1822 (http://educati on.[employer]. com/f aq/HYV213) CHOL/HDLC RATIO 3.7 {CALC} <5.0 N (test code = CHOL/HDLC RATIO) NON HDL CHOLESTEROL 104 {MG/DL <130 N For jackie ents with (test code = NON HDL MARIAM} diabete s plus 1 CHOLESTEROL) major ASCVD ris k factor, treatin g to a non-HDL-C goa l of <100 mg/dL (LDL -C of <70 mg/dL) is considered a therapeutic opt ion. [facility]] CMP [id number] 08:42:00 Test Item Value Reference Range Interpretation Comments GLUCOSE; Normal 85 mg/dl 65-99 N Fasting refe rence (test code = interval 1547-9) UREA NITROGEN (BUN) 11 mg/dl 7-25 N (test code = UREA NITROGEN (BUN)) CREATININE (test 0.56 mg/dl 0.50-1.10 N code = CREATININE) eGFR NON- 113 {ML/MIN/1.7} > OR = 60 N CAMEROONIAN (test code = eGFR NON-) eGFR 131 {ML/MIN/1.7} > OR = 60 N CAMEROONIAN (test code = eGFR ) BUN/CREATININE NOT APPLICABLE 6-22 RATIO (test code = BUN/CREATININE RATIO) SODIUM (test code = 139 mmol/L 135-146 N SODIUM) POTASSIUM (test 4.4 mmol/L 3.5-5.3 N code = POTASSIUM) CHLORIDE (test code 108 mmol/L 98-110 N = CHLORIDE) CARBON DIOXIDE 22 mmol/L 20-32 N (test code = CARBON DIOXIDE) CALCIUM (test code 9.1 mg/dl 8.6-10.2 N = CALCIUM) PROTEIN, TOTAL 6.5 g/dl 6.1-8.1 N (test code = PROTEIN, TOTAL) ALBUMIN (test code 3.7 g/dl 3.6-5.1 N = ALBUMIN) GLOBULIN (test code 2.8 {G/DL CALC} 1.9-3.7 N = GLOBULIN) ALBUMIN/GLOBULIN 1.3 {CALC} 1.0-2.5 N RATIO (test code = ALBUMIN/GLOBULIN RATIO) BILIRUBIN, TOTAL; 0.5 mg/dl 0.2-1.2 N Normal (test code = 11534-7) ALKALINE PHSPHATASE 68 u/l 33-115 N (test code = ALKALINE PHSPHATASE) AST; Normal (test 11 u/l 10-35 N code = 1916-6) ALT; Normal (test 13 u/l 6-29 N code = 1742-6) [facility]] CBC (INCLUDES DIFF/PLT)2018-04-18 08:42:00 Test Item Value Reference Range Interpretation Comments WHITE BLOOD CELL COUNT 7.7 {Thousand/u} 3.8-10.8 N (test code = WHITE BLOOD CELL COUNT) RED BLOOD CELL COUNT (test 4.53 {Million/uL} 3.80-5.10 N code = RED BLOOD CELL COUNT) HEMAGLOBIN; Normal (test 13.0 g/dl 11.7-15.5 N code = 50146-3) HEMATOCRIT; Normal (test 37.9 % 35.0-45.0 N code = 4544-3) MCV; Normal (test code = 83.7 fL 80.0-100.0 N 787-2) MCHC; Normal (test code = 34.3 g/dl 32.0-36.0 N 18060-1) RDW; Normal (test code = 13.1 % 11.0-15.0 N 788-0) PLATELET COUNT; Normal 369 {Thousand/u} 140-400 N (test code = 777-3) MPV; Normal (test code = 11.2 fL 7.5-12.5 N 86530-8) ABSOLUTE NEUTROPHILS (test 5144 {cells/uL} 1607-5619 N code = ABSOLUTE NEUTROPHILS) ABSOLUTE LYMPHOCYTES (test 1917 {cells/uL} 850-3900 N code = ABSOLUTE LYMPHOCYTES) ABSOLUTE MONOCYTES (test 416 {cells/uL} 200-950 N code = ABSOLUTE MONOCYTES) ABSOLUTE EOSINOPHILS (test 177 {cells/uL} 15-500 N code = ABSOLUTE EOSINOPHILS) ABSOLUTE BASOPHILS (test 46 {cells/uL} 0-200 N code = ABSOLUTE BASOPHILS) NEUTROPHILS (test code = 66.8 % N NEUTROPHILS) LYMPHOCYTES (test code = 24.9 % N LYMPHOCYTES) MONOCYTES; Normal (test 5.4 % N code = 92764-0) EOSINOPHILS; Normal (test 2.3 % N code = 90938-2) BASOPHILS; Normal (test 0.6 % N code = 79882-5) [facility]] [id number] 08:42:00 Test Item Value Reference Range Interpretation Comments FSH (test code = 3.7 {miU/ml} N Reference R deyanira FSH) Follicular Phas e 2.5-10.2 Mid-cycle Peak 3.1-17.7 Luteal Phase 1. 5- 9.1 Postmenopausal 23.0-116.3 [facility]] TSH, 3RD GENERATION W/REFLEX TO [id number] 08:42:00 Test Item Value Reference Range Interpretation Comments TSH, 3RD GENERATION 4.08 {MIU/L} N Referenc e Range > or W/REFLEX TO FT4 (test = 20 Y ears 0.40-4.50 code = TSH, 3RD Ra nges GENERATION W/REFLEX First tr imester TO FT4) 0.26-2.66 Secon d trimester 0.55- 2.73 Third trimester 0.43-2.91 [facility]] HEMOGLOBIN [id number] 08:42:00 Test Item Value Reference Range Interpretation Comments HEMOGLOBIN A1c; 5.6 {% of <5.7 N For the purp ose of Normal (test code total} screening for the = 4548-4) presence ofdiab etes: <5.7% Consisten t with the absence of diabetes5.7-6.4 % Consistent with increased risk for diabetes (predi abetes)> or =6.5% Consis tent with diabetes T his assay result is consistent with a decreased risko f diabetes. Curre ntly, no consensus exist s regarding use ofhemoglobin A1 c for diagnosis of di abetes in children. Ac cording to [place] [employer] (ADA)guidelines , hemoglobin A1c <7.0% represents optimalcontrol in non- di abetic patients. Differentmetric s may apply to specif ic patient populat ions. Standards of Me dical Care in Diabete s(ADA). [facility]] CBC (INCLUDES DIFF/PLT)2017-03-23 11:17:01 Test Item Value Reference Range Interpretation Comments WBC (test code = WBC) 8.9 {K/CMM} 3.7-10.4 RBC (test code = RBC) 4.44 {M/CMM} 4.20-5.40 Hgb (test code = 10086-1) 13.3 g/dl 12.0-16.0 Hct (test code = 4544-3) 38.8 % 36.0-48.0 MCV (test code = MCV) 87.4 fL 80.0-98.0 MCH (test code = MCH) 30.0 pg 27.0-31.0 MCHC (test code = MCHC) 34.3 g/dl 32.0-36.0 RDW (test code = RDW) 14.6 % 11.5-14.5 Platelet (test code = 777-3) 353 {K/CMM} 133-450 Mean Platelet Volume (test code 9.3 fL 7.4-10.4 = Mean Platelet Volume) [facility]] [id number] 11:17:01 Test Item Value Reference Range Interpretation Comments Segmented Neutrophils (test code 69.7 % 45.0-75.0 = 20066-1) Monocytes # (test code = 80692-9) 0.6 {K/CMM} 0.0-0.8 Lymphocytes (test code = 20.6 % 20.0-40.0 Lymphocytes) Eosinophils # (test code = 0.2 {K/CMM} 0.0-0.5 63894-5) Basophils # (test code = 00051-3) 0.1 {K/CMM} 0.0-0.2 Segs-Bands # (test code = 6.2 {K/CMM} 1.5-8.1 50963-1) Lymphocytes # (test code = 1.8 {K/CMM} 1.0-5.5 57283-1) [facility]] [id number] 11:17:01 Test Item Value Reference Range Interpretation Comments Follicle Stimulating 2.1 {miU/ml} [facility] ped iatric ranges Hormone (test code = publish ed in the Follicle Stimulating literat ure* age(yrs) Hormone) male(miu/ml) ag e(yrs) female(miu/ml) -------- ------ ------ -------- P repube rtalChildren: 2 -8 0-3.0 2-8 1.0-4.2Puberty: <9.0 0-3.0 <9.2 1.0- 4.2 9.8-14.5 1.8-3. 2 9.2-13.7 1.0-1 0.8 10.7-15.4 1.2-5 .8 10.0-14.4 1.5-1 2.8 11.8-16.2 2.0-9 .2 10.7-15.6 1.5-1 1.7 12.8-17.3 2.6-1 1.0 11.8-18.6 1.0-9.2*[facility] has no t established normalranges fo r the above age groups.Adult reference range s: Male: 1.0 - 12. 0 miu/ml Female: Follicular phas e: 3.0-20.0 miu/ml Mid-cycle: 9.0- 26.0 miu/ml Luteal p hase: 1.0-12.0 miu/ml Post menopausal: 18.0-153.0 miu/ ml [facility]] CMP [id number] 11:17:01 Test Item Value Reference Range Interpretation Comments Sodium Level 138 {mEq/l} 135-145 (test code = Sodium Level) Potassium Level 4.2 {mEq/l} 3.5-5.1 (test code = Potassium Level) Chloride Level 104 {mEq/l} 95-109 (test code = Chloride Level) Carbon Dioxide 23 {mEq/l} 24-32 (test code = Carbon Dioxide) AGAP (test code = 15.2 {mEq/l} 10.0-20.0 AGAP) Glucose Lvl (test 88 mg/dl 70-99 Adult refe rence range code = Glucose values reflec t the Lvl) clinical guidel inesof the [place] [employer] es [employer]. Creatinine Lvl 0.80 mg/dl 0.50-1.40 (test code = Creatinine Lvl) Blood Urea 10 mg/dl 7-22 Nitrogen (test code = Blood Urea Nitrogen) BUN/Creatinine 12 6-25 Ratio (test code = BUN/Creatinine Ratio) Total Protein 7.8 g/dl 6.4-8.4 (test code = 50592-6) Albumin Lvl; 3.4 g/dl 3.5-5.0 Below Low Threshold (test code = 1751-7) Globulin (test 4.4 g/dl 2.7-4.2 code = Globulin) A/G Ratio (test 0.8 0.7-1.6 code = A/G Ratio) Calcium Level 9.9 mg/dl 8.5-10.5 Total (test code = Calcium Level Total) ALT (test code = 43 u/l 0-65 1742-6) AST (test code = 25 u/l 0-37 6-6) Bili Total (test 0.3 mg/dl 0.2-1.3 code = 07584-9) Alk Phos (test 87 u/l 39-136 code = 1783-0) eGFR (test code = 90 The eGFR i s calculated eGFR) {ML/MIN/1.7} using the CKD-E PI formula. In mos t young, healthyindividu als the eGFR will be >9 0 mL/min/1.73m2. The eGFR declines with a ge. AneGFR of 60-89 may be normal in some population s, particularly th e elderly, forwhom the CKD -EPI formula has not been extensively kevin idated. Use of the eGFR isnot recommended in the following populations:Ind ividuals with unstable c reatinine concentrations, including patient s and those with seri ous co-morbid conditions.Jackie ents with extremes in mus terrance mass or diet.The jt a above are obtained fr om the National Kidney Disease Education Progr am(NKDEP) which sherry hahn recommends that when the eGFR is used in patientswith ex tremes of body mass index for purposes of naomi g dosing, the eGFR should be multiplied by t he estimated BMI. [facility]] TSH, 3RD GENERATION W/REFLEX TO [id number] 11:17:01 Test Item Value Reference Range Interpretation Comments TSH (test code = 80779-3) 2.630 {uIU/ml} 0.360-3.740 [facility]. [facility] - Affirm VPIII (BV Panel)2017-03-23 00:00:00 Test Item Value Reference Range Interpretation Comments Affirm VPIII (BV Panel) REPORT See Comment (test code = Affirm VPIII (BV Panel) REPORT) [facility] HssxrklktgVKKWAGMUWE5006-71-08 10:50:51 Test Item Value Reference Range Interpretation Comments WBC (test code = WBC) 7.0 3.7-10.4 [facility] CenterZbiyhvjWHXZLAPZVI0514-73-99 10:50:51 Test Item Value Reference Range Interpretation Comments Hct (test code = Hct) 40.3 36.0-48.0 [facility] CenterWftltcxTIAKKKURWM2900-11-19 10:50:51 Test Item Value Reference Range Interpretation Comments Basophils # (test code 0.0 See_Comment [Aut omated message] The = Basophils #) system which generated this result tra nsmitted reference range : <=0.2. The reference r deyanira was not used to int erpret this result as normal/abnormal . [facility] CenterGquixecFGEUIEYJLA4236-73-19 10:50:51 Test Item Value Reference Range Interpretation Comments Eosinophils # (test code 0.0 See_Comment [A utomated message] The = Eosinophils #) system whic h generated this result tra nsmitted reference range : <=0.5. The reference r deyanira was not used to int erpret this result as normal/abnormal . [facility] CenterVnybfivFZDJTFMRFF3523-63-61 10:50:51 Test Item Value Reference Range Interpretation Comments Segs-Bands # (test code = Segs-Bands #) 6.0 1.5-8.1 [facility] CenterXxhvkubYZVNQURFEO6671-81-06 10:50:51 Test Item Value Reference Range Interpretation Comments Basophils (test code = 0.1 See_Comment [Aut omated message] The Basophils) system which ge nerated this result tra nsmitted reference range : <=1.0. The reference r deyanira was not used to int erpret this result as normal/abnormal . [facility] CenterIzotqccFRVADSEZXG9667-80-01 10:50:51 Test Item Value Reference Range Interpretation Comments Monocytes # (test code 0.1 See_Comment [Aut omated message] The = Monocytes #) system which generated this result tra nsmitted reference range : <=0.8. The reference r deyanira was not used to int erpret this result as normal/abnormal . [facility] CenterSamuljrBEBZBVRFGO7533-22-53 10:50:51 Test Item Value Reference Range Interpretation Comments Lymphocytes # (test code = Lymphocytes 0.9 1.0-5.5 #) [facility] CenterPaspfvrVITIWQZRFQ3138-77-94 10:50:51 Test Item Value Reference Range Interpretation Comments MCH (test code = MCH) 29.1 pg 27.0-31.0 [facility] CenterJomynpuBQSIADSKTF1742-07-60 10:50:51 Test Item Value Reference Range Interpretation Comments MCHC (test code = MCHC) 34.1 32.0-36.0 [facility] CenterDlcyvxoKAWVOXDTDW3901-65-94 10:50:51 Test Item Value Reference Range Interpretation Comments RDW (test code = RDW) 13.1 11.5-14.5 [facility] CenterImilkrcQGZOKOWNAD8986-80-07 10:50:51 Test Item Value Reference Range Interpretation Comments Platelet (test code = Platelet) 319 133-450 [facility] CenterOkmkuliACTALDNAWY1106-38-75 10:50:51 Test Item Value Reference Range Interpretation Comments MCV (test code = MCV) 85.2 80.0-98.0 [facility] CenterQkwtvbwXZFMSETTNY4540-48-63 10:50:51 Test Item Value Reference Range Interpretation Comments Eosinophils (test code = 0.2 See_Comment [A utomated message] The Eosinophils) system which ge nerated this result tra nsmitted reference range : <=4.0. The reference r deyanira was not used to int erpret this result as normal/abnormal . [facility] CenterFodbwdpUOEEILDRJO8691-05-32 10:50:51 Test Item Value Reference Range Interpretation Comments MPV (test code = MPV) 10.0 7.4-10.4 [facility] CenterPtdbntiNUEYRDBRXI7839-03-92 10:50:51 Test Item Value Reference Range Interpretation Comments RBC (test code = RBC) 4.73 4.20-5.40 [facility] CenterWjvfgweVZSDWRSFMV6204-33-25 10:50:51 Test Item Value Reference Range Interpretation Comments Hgb (test code = Hgb) 13.8 12.0-16.0 [facility] CenterXsvtdkfYATPDHSUFX7254-07-95 10:50:51 Test Item Value Reference Range Interpretation Comments WBC (test code = WBC) 7.0 3.7-10.4 [facility] CenterQpmluttMASGYTWQOG2588-73-78 10:50:51 Test Item Value Reference Range Interpretation Comments Hct (test code = Hct) 40.3 36.0-48.0 [facility] CenterXwltpdnHXUGEDRIYZ3849-96-02 10:50:51 Test Item Value Reference Range Interpretation Comments Basophils # (test code 0.0 See_Comment [Aut omated message] The = Basophils #) system which generated this result tra nsmitted reference range : <=0.2. The reference r deyanira was not used to int erpret this result as normal/abnormal . [facility] CenterCdqvahiVMAUMQRPED2921-60-86 10:50:51 Test Item Value Reference Range Interpretation Comments Eosinophils # (test code 0.0 See_Comment [A utomated message] The = Eosinophils #) system whic h generated this result tra nsmitted reference range : <=0.5. The reference r deyanira was not used to int erpret this result as normal/abnormal . [facility] CenterPuqksasSJALNEXOFY3065-40-23 10:50:51 Test Item Value Reference Range Interpretation Comments Segs-Bands # (test code = Segs-Bands #) 6.0 1.5-8.1 [facility] CenterWerrqxhQWXSGFYRLG6386-90-79 10:50:51 Test Item Value Reference Range Interpretation Comments Basophils (test code = 0.1 See_Comment [Aut omated message] The Basophils) system which ge nerated this result tra nsmitted reference range : <=1.0. The reference r deyanira was not used to int erpret this result as normal/abnormal . [facility] CenterCqgwsseMFIJYLLYGF5972-46-82 10:50:51 Test Item Value Reference Range Interpretation Comments Monocytes # (test code 0.1 See_Comment [Aut omated message] The = Monocytes #) system which generated this result tra nsmitted reference range : <=0.8. The reference r deyanira was not used to int erpret this result as normal/abnormal . [facility] CenterRtfhtmnQUPYCLSWRV1945-03-46 10:50:51 Test Item Value Reference Range Interpretation Comments Lymphocytes (test code = Lymphocytes) 12.7 20.0-40.0 [facility] CenterFsnpmguTYFBIXIVQB7102-59-38 10:50:51 Test Item Value Reference Range Interpretation Comments Lymphocytes # (test code = Lymphocytes 0.9 1.0-5.5 #) [facility] CenterSzhebxkQKRTTYRROY8209-82-50 10:50:51 Test Item Value Reference Range Interpretation Comments Eosinophils (test code = 0.2 See_Comment [A utomated message] The Eosinophils) system which ge nerated this result tra nsmitted reference range : <=4.0. The reference r deyanira was not used to int erpret this result as normal/abnormal . [facility] CenterRabxjhcNAUBGWEMOP0550-58-29 10:50:51 Test Item Value Reference Range Interpretation Comments Lymphocytes (test code = Lymphocytes) 12.7 20.0-40.0 [facility] CenterDrccijmPNYZQCGJOS1416-97-98 10:50:51 Test Item Value Reference Range Interpretation Comments Monocytes (test code = Monocytes) 0.8 2.0-12.0 [facility] CenterUesenwlTANBUTQDFC0707-71-15 10:50:51 Test Item Value Reference Range Interpretation Comments Segs (test code = Segs) 86.2 45.0-75.0 [facility] CenterMjkmyjaZBYQAZTPNJ6834-71-46 10:50:51 Test Item Value Reference Range Interpretation Comments Plt Morph (test code = Normal (12/31/13 5:50 Plt Morph) AM) [facility] CenterCfbagljRCKNHCEBJZ2288-48-97 10:50:51 Test Item Value Reference Range Interpretation Comments Monocytes (test code = Monocytes) 0.8 2.0-12.0 [facility] CenterKlvovznKKXCBEJQXJ8599-66-57 10:50:51 Test Item Value Reference Range Interpretation Comments Segs (test code = Segs) 86.2 45.0-75.0 [facility] CenterKzmruxiHFGXYJTGRP1692-24-14 10:50:51 Test Item Value Reference Range Interpretation Comments Plt Morph (test code = Normal (12/31/13 5:50 Plt Morph) AM) [facility] CenterWpgmxlcNLIOCAXLYX3940-60-72 10:50:51 Test Item Value Reference Range Interpretation Comments MCH (test code = MCH) 29.1 pg 27.0-31.0 [facility] CenterYfkczmpSXPHZSWADW6351-09-24 10:50:51 Test Item Value Reference Range Interpretation Comments MCHC (test code = MCHC) 34.1 32.0-36.0 [facility] CenterCqjsktrVFLLGQDCKJ8256-99-38 10:50:51 Test Item Value Reference Range Interpretation Comments RDW (test code = RDW) 13.1 11.5-14.5 [facility] CenterSoyzxcuTQLWIQSXNR6321-00-95 10:50:51 Test Item Value Reference Range Interpretation Comments Platelet (test code = Platelet) 319 133-450 [facility] CenterDbfrmdnAPCNLBTRKG0795-80-52 10:50:51 Test Item Value Reference Range Interpretation Comments MCV (test code = MCV) 85.2 80.0-98.0 [facility] CenterChcskqmFAVZBZFHJZ0905-86-05 10:50:51 Test Item Value Reference Range Interpretation Comments MPV (test code = MPV) 10.0 7.4-10.4 [facility] CenterKfssaucOUFBMUDJCO3271-69-07 10:50:51 Test Item Value Reference Range Interpretation Comments RBC (test code = RBC) 4.73 4.20-5.40 [facility] CenterMxtyudwAONRQBFMHV1885-56-27 10:50:51 Test Item Value Reference Range Interpretation Comments Hgb (test code = Hgb) 13.8 12.0-16.0 [facility] CenterMelblpuEKZABLDHXN2154-72-94 10:50:51 Test Item Value Reference Range Interpretation Comments WBC (test code = WBC) 7.0 3.7-10.4 [facility] CenterKeezilvJNBIRJATAB1457-68-71 10:50:51 Test Item Value Reference Range Interpretation Comments Hct (test code = Hct) 40.3 36.0-48.0 [facility] CenterXsgkvlwQRYCHNWWRS0241-07-99 10:50:51 Test Item Value Reference Range Interpretation Comments Basophils # (test code 0.0 See_Comment [Aut omated message] The = Basophils #) system which generated this result tra nsmitted reference range : <=0.2. The reference r deyanira was not used to int erpret this result as normal/abnormal . [facility] CenterAmslmnaRGFNMWPDJA1239-35-98 10:50:51 Test Item Value Reference Range Interpretation Comments Eosinophils # (test code 0.0 See_Comment [A utomated message] The = Eosinophils #) system whic h generated this result tra nsmitted reference range : <=0.5. The reference r deyanira was not used to int erpret this result as normal/abnormal . [facility] CenterZgkznrrFCQCUSPTOI6242-81-54 10:50:51 Test Item Value Reference Range Interpretation Comments Segs-Bands # (test code = Segs-Bands #) 6.0 1.5-8.1 [facility] CenterGucjaxgRMRYENYZMJ8753-94-73 10:50:51 Test Item Value Reference Range Interpretation Comments Basophils (test code = 0.1 See_Comment [Aut omated message] The Basophils) system which ge nerated this result tra nsmitted reference range : <=1.0. The reference r deyanira was not used to int erpret this result as normal/abnormal . [facility] CenterOxhvrnwCWSSUWOBSN5997-80-27 10:50:51 Test Item Value Reference Range Interpretation Comments Monocytes # (test code 0.1 See_Comment [Aut omated message] The = Monocytes #) system which generated this result tra nsmitted reference range : <=0.8. The reference r deyanira was not used to int erpret this result as normal/abnormal . [facility] CenterKiappxsVCOLBDTVVX5034-95-91 10:50:51 Test Item Value Reference Range Interpretation Comments Lymphocytes # (test code = Lymphocytes 0.9 1.0-5.5 #) [facility] CenterUbkdimsXVJIUFSGUK7667-05-14 10:50:51 Test Item Value Reference Range Interpretation Comments Eosinophils (test code = 0.2 See_Comment [A utomated message] The Eosinophils) system which ge nerated this result tra nsmitted reference range : <=4.0. The reference r deyanira was not used to int erpret this result as normal/abnormal . [facility] CenterIlhxqjhMUPLHSHCJI4330-57-07 10:50:51 Test Item Value Reference Range Interpretation Comments Lymphocytes (test code = Lymphocytes) 12.7 20.0-40.0 [facility] CenterLcakhesKTQPACEKYN3772-90-50 10:50:51 Test Item Value Reference Range Interpretation Comments Monocytes (test code = Monocytes) 0.8 2.0-12.0 [facility] CenterHrmypicGJJCASXBZH6464-38-45 10:50:51 Test Item Value Reference Range Interpretation Comments Segs (test code = Segs) 86.2 45.0-75.0 [facility] CenterBxmazvhZIBNOOZURZ0261-68-48 10:50:51 Test Item Value Reference Range Interpretation Comments Plt Morph (test code = Normal (12/31/13 5:50 Plt Morph) AM) [facility] CenterHbmaoeyMOAZRBNFOQ1310-61-94 10:50:51 Test Item Value Reference Range Interpretation Comments MCH (test code = MCH) 29.1 pg 27.0-31.0 [facility] CenterLoicoxgQLBWSIQKLJ8439-40-70 10:50:51 Test Item Value Reference Range Interpretation Comments MCHC (test code = MCHC) 34.1 32.0-36.0 [facility] CenterLdsocvfAZGLBFVZQM6513-92-13 10:50:51 Test Item Value Reference Range Interpretation Comments RDW (test code = RDW) 13.1 11.5-14.5 [facility] CenterMqcczzdQJJOXHYRBZ8021-93-71 10:50:51 Test Item Value Reference Range Interpretation Comments Platelet (test code = Platelet) 319 133-450 [facility] CenterQarrhfbAGGAXZVTWA4167-75-88 10:50:51 Test Item Value Reference Range Interpretation Comments MCV (test code = MCV) 85.2 80.0-98.0 [facility] CenterIpdpseaJJSGWWKCWK2479-17-87 10:50:51 Test Item Value Reference Range Interpretation Comments MPV (test code = MPV) 10.0 7.4-10.4 [facility] CenterPjixmiaJARESMFYKK1496-48-94 10:50:51 Test Item Value Reference Range Interpretation Comments RBC (test code = RBC) 4.73 4.20-5.40 [facility] CenterUfjzukvNZYITECGUM9616-49-47 10:50:51 Test Item Value Reference Range Interpretation Comments Hgb (test code = Hgb) 13.8 12.0-16.0 [facility] CenterDtechxsAOCZTWJBMN7849-03-46 10:50:51 Test Item Value Reference Range Interpretation Comments WBC (test code = WBC) 7.0 3.7-10.4 [facility] CenterAinzzgiKTSEYYFDNF2906-37-68 10:50:51 Test Item Value Reference Range Interpretation Comments Hct (test code = Hct) 40.3 36.0-48.0 [facility] CenterAzegttiZWYURKLFZB0014-28-60 10:50:51 Test Item Value Reference Range Interpretation Comments Basophils # (test code 0.0 See_Comment [Aut omated message] The = Basophils #) system which generated this result tra nsmitted reference range : <=0.2. The reference r deyanira was not used to int erpret this result as normal/abnormal . [facility] CenterDeabpfePSADLFDAAI5867-63-68 10:50:51 Test Item Value Reference Range Interpretation Comments Eosinophils # (test code 0.0 See_Comment [A utomated message] The = Eosinophils #) system whic h generated this result tra nsmitted reference range : <=0.5. The reference r deyanira was not used to int erpret this result as normal/abnormal . [facility] CenterZhdkhbbQWVQVVXRJQ3283-83-10 10:50:51 Test Item Value Reference Range Interpretation Comments Segs-Bands # (test code = Segs-Bands #) 6.0 1.5-8.1 [facility] CenterHhkkwohMPMRXSDRFH9440-81-18 10:50:51 Test Item Value Reference Range Interpretation Comments Basophils (test code = 0.1 See_Comment [Aut omated message] The Basophils) system which ge nerated this result tra nsmitted reference range : <=1.0. The reference r deyanira was not used to int erpret this result as normal/abnormal . [facility] CenterEirkcblDXWYBGZRJM6371-70-66 10:50:51 Test Item Value Reference Range Interpretation Comments Monocytes # (test code 0.1 See_Comment [Aut omated message] The = Monocytes #) system which generated this result tra nsmitted reference range : <=0.8. The reference r deyanira was not used to int erpret this result as normal/abnormal . [facility] CenterPkftxctREYGJLTIMK6364-96-11 10:50:51 Test Item Value Reference Range Interpretation Comments Lymphocytes # (test code = Lymphocytes 0.9 1.0-5.5 #) [facility] CenterAxbcgccQEYCHPMKIV6927-14-42 10:50:51 Test Item Value Reference Range Interpretation Comments Eosinophils (test code = 0.2 See_Comment [A utomated message] The Eosinophils) system which ge nerated this result tra nsmitted reference range : <=4.0. The reference r deyanira was not used to int erpret this result as normal/abnormal . [facility] CenterYflgzgaILDHOXOOFC5703-16-78 10:50:51 Test Item Value Reference Range Interpretation Comments Lymphocytes (test code = Lymphocytes) 12.7 20.0-40.0 [facility] CenterEwtiolmVEDAEOVWYY0866-48-34 10:50:51 Test Item Value Reference Range Interpretation Comments Monocytes (test code = Monocytes) 0.8 2.0-12.0 [facility] CenterJjtvffxNJQZHQYDCK8700-69-19 10:50:51 Test Item Value Reference Range Interpretation Comments Segs (test code = Segs) 86.2 45.0-75.0 [facility] CenterXhffkdkBOJXWZJNCH7497-72-46 10:50:51 Test Item Value Reference Range Interpretation Comments Plt Morph (test code = Normal (12/31/13 5:50 Plt Morph) AM) [facility] CenterJdbvduvOQVSHAGVUV3923-38-20 10:50:51 Test Item Value Reference Range Interpretation Comments MCH (test code = MCH) 29.1 pg 27.0-31.0 [facility] CenterIcygpqvKYLYFAKYIZ8236-91-07 10:50:51 Test Item Value Reference Range Interpretation Comments MCHC (test code = MCHC) 34.1 32.0-36.0 [facility] CenterFjwfvuiXUWYCZNSMC2396-10-57 10:50:51 Test Item Value Reference Range Interpretation Comments RDW (test code = RDW) 13.1 11.5-14.5 [facility] CenterGtxsavhLAULHYJIUX6215-71-07 10:50:51 Test Item Value Reference Range Interpretation Comments Platelet (test code = Platelet) 319 133-450 [facility] CenterIretvfxCZPNKAOREC9909-70-46 10:50:51 Test Item Value Reference Range Interpretation Comments MCV (test code = MCV) 85.2 80.0-98.0 [facility] CenterJewdxrxJPXVAKBDWV8122-65-20 10:50:51 Test Item Value Reference Range Interpretation Comments MPV (test code = MPV) 10.0 7.4-10.4 [facility] CenterVqzubicLCFJEPNBSQ7175-79-98 10:50:51 Test Item Value Reference Range Interpretation Comments RBC (test code = RBC) 4.73 4.20-5.40 [facility] CenterVwquhrjFPQNAWGRBQ6979-67-98 10:50:51 Test Item Value Reference Range Interpretation Comments Hgb (test code = Hgb) 13.8 12.0-16.0 [facility]2014-09-14 08:38:00 Test Item Value Reference Range Interpretation Comments A/G Ratio (test code = A/G Ratio) 0.7 0.7-1.6 [facility]2014-09-14 08:38:00 Test Item Value Reference Range Interpretation Comments Globulin (test code = Globulin) 4.9 2.0-4.0 [facility]2014-09-14 08:38:00 Test Item Value Reference Range Interpretation Comments AGAP (test code = AGAP) 13.9 10.0-20.0 [facility]2014-09-14 08:38:00 Test Item Value Reference Range Interpretation Comments B/C Ratio (test code = B/C Ratio) 16 6-25 [facility]2014-09-14 08:38:00 Test Item Value Reference Range Interpretation Comments AST (test code = AST) 30 See_Comment [Auto mated message] The system which ge nerated this result transmit jace reference range : <=37. The reference range was not used to interpr et this result as beth l/abnormal. [facility]2014-09-14 08:38:00 Test Item Value Reference Range Interpretation Comments ALT (test code = ALT) 20 See_Comment [Auto mated message] The system which ge nerated this result transmit jace reference range : <=65. The reference range was not used to interpr et this result as beth l/abnormal. [facility]2014-09-14 08:38:00 Test Item Value Reference Range Interpretation Comments Albumin Lvl (test code = Albumin Lvl) 3.4 3.5-5.0 [facility]2014-09-14 08:38:00 Test Item Value Reference Range Interpretation Comments Alk Phos (test code = Alk Phos) 78 39-136 [facility]2014-09-14 08:38:00 Test Item Value Reference Range Interpretation Comments Total Protein (test code = Total 8.3 6.4-8.4 Protein) [facility]2014-09-14 08:38:00 Test Item Value Reference Range Interpretation Comments Bili Total (test code = Bili Total) 0.4 0.2-1.3 [facility]2014-09-14 08:38:00 Test Item Value Reference Range Interpretation Comments eGFR (test code = eGFR) 92 [facility]2014-09-14 08:38:00 Test Item Value Reference Range Interpretation Comments Potassium Lvl (test code = Potassium 4.9 3.5-5.1 Lvl) [facility]2014-09-14 08:38:00 Test Item Value Reference Range Interpretation Comments Chloride Lvl (test code = Chloride Lvl) 104 95-109 [facility]2014-09-14 08:38:00 Test Item Value Reference Range Interpretation Comments CO2 (test code = CO2) 22 24-32 [facility]2014-09-14 08:38:00 Test Item Value Reference Range Interpretation Comments Calcium Lvl (test code = Calcium Lvl) 9.9 8.5-10.5 [place] 990284-09-14 08:38:00 Test Item Value Reference Range Interpretation Comments BUN (test code = BUN) 13 7-22 [facility]2014-09-14 08:38:00 Test Item Value Reference Range Interpretation Comments Creatinine Lvl (test code = Creatinine 0.8 0.5-1.4 Lvl) [facility]2014-09-14 08:38:00 Test Item Value Reference Range Interpretation Comments Sodium Lvl (test code = Sodium Lvl) 135 135-145 [facility]2014-09-14 08:38:00 Test Item Value Reference Range Interpretation Comments Glucose Lvl (test code = Glucose Lvl) 141 70-99 [facility]BjappwfDYPWSMIJHF6240-86-49 08:38:00 Test Item Value Reference Range Interpretation Comments PTT (test code = PTT) 30.6 s 22.9-35.8 [place] 290644-09-14 08:38:00 Test Item Value Reference Range Interpretation Comments PT (test code = PT) 13.0 s 12.0-14.7 [facility] CenterCghoftmPQDGPEEMFI7282-94-26 08:38:00 Test Item Value Reference Range Interpretation Comments INR (test code = INR) 0.98 0.85-1.17 [place] 990284-09-14 08:38:00 Test Item Value Reference Range Interpretation Comments A/G Ratio (test code = A/G Ratio) 0.7 0.7-1.6 [facility]2014-09-14 08:38:00 Test Item Value Reference Range Interpretation Comments Globulin (test code = Globulin) 4.9 2.0-4.0 [facility]2014-09-14 08:38:00 Test Item Value Reference Range Interpretation Comments AGAP (test code = AGAP) 13.9 10.0-20.0 [facility]2014-09-14 08:38:00 Test Item Value Reference Range Interpretation Comments B/C Ratio (test code = B/C Ratio) 16 6-25 [place] 990284-09-14 08:38:00 Test Item Value Reference Range Interpretation Comments AST (test code = AST) 30 See_Comment [Auto mated message] The system which ge nerated this result transmit jace reference range : <=37. The reference range was not used to interpr et this result as beth l/abnormal. [facility]2014-09-14 08:38:00 Test Item Value Reference Range Interpretation Comments ALT (test code = ALT) 20 See_Comment [Auto mated message] The system which ge nerated this result transmit jace reference range : <=65. The reference range was not used to interpr et this result as beth l/abnormal. [facility]2014-09-14 08:38:00 Test Item Value Reference Range Interpretation Comments Albumin Lvl (test code = Albumin Lvl) 3.4 3.5-5.0 [facility]2014-09-14 08:38:00 Test Item Value Reference Range Interpretation Comments Alk Phos (test code = Alk Phos) 78 39-136 [facility]2014-09-14 08:38:00 Test Item Value Reference Range Interpretation Comments Total Protein (test code = Total 8.3 6.4-8.4 Protein) [place] 990284-09-14 08:38:00 Test Item Value Reference Range Interpretation Comments Bili Total (test code = Bili Total) 0.4 0.2-1.3 [facility]2014-09-14 08:38:00 Test Item Value Reference Range Interpretation Comments eGFR (test code = eGFR) 92 [facility]2014-09-14 08:38:00 Test Item Value Reference Range Interpretation Comments Potassium Lvl (test code = Potassium 4.9 3.5-5.1 Lvl) [facility]2014-09-14 08:38:00 Test Item Value Reference Range Interpretation Comments Chloride Lvl (test code = Chloride Lvl) 104 95-109 [place] [address]-09-14 08:38:00 Test Item Value Reference Range Interpretation Comments CO2 (test code = CO2) 22 24-32 [facility]2014-09-14 08:38:00 Test Item Value Reference Range Interpretation Comments Calcium Lvl (test code = Calcium Lvl) 9.9 8.5-10.5 [facility]2014-09-14 08:38:00 Test Item Value Reference Range Interpretation Comments BUN (test code = BUN) 13 7-22 [place] 990284-09-14 08:38:00 Test Item Value Reference Range Interpretation Comments Creatinine Lvl (test code = Creatinine 0.8 0.5-1.4 Lvl) [facility]2014-09-14 08:38:00 Test Item Value Reference Range Interpretation Comments Sodium Lvl (test code = Sodium Lvl) 135 135-145 [facility]2014-09-14 08:38:00 Test Item Value Reference Range Interpretation Comments Glucose Lvl (test code = Glucose Lvl) 141 70-99 [facility] CenterFgzbclcDJIOIXLDPI9327-44-08 08:38:00 Test Item Value Reference Range Interpretation Comments PTT (test code = PTT) 30.6 s 22.9-35.8 [facility] CenterArxncmtACJYDYHPDU9632-47-86 08:38:00 Test Item Value Reference Range Interpretation Comments PT (test code = PT) 13.0 s 12.0-14.7 [place] 290644-09-14 08:38:00 Test Item Value Reference Range Interpretation Comments INR (test code = INR) 0.98 0.85-1.17 [facility]2014-09-14 08:38:00 Test Item Value Reference Range Interpretation Comments A/G Ratio (test code = A/G Ratio) 0.7 0.7-1.6 [facility]2014-09-14 08:38:00 Test Item Value Reference Range Interpretation Comments Globulin (test code = Globulin) 4.9 2.0-4.0 [facility]2014-09-14 08:38:00 Test Item Value Reference Range Interpretation Comments AGAP (test code = AGAP) 13.9 10.0-20.0 [facility]2014-09-14 08:38:00 Test Item Value Reference Range Interpretation Comments B/C Ratio (test code = B/C Ratio) 16 6-25 [facility]2014-09-14 08:38:00 Test Item Value Reference Range Interpretation Comments AST (test code = AST) 30 See_Comment [Auto mated message] The system which ge nerated this result transmit jace reference range : <=37. The reference range was not used to interpr et this result as beth l/abnormal. [facility]2014-09-14 08:38:00 Test Item Value Reference Range Interpretation Comments ALT (test code = ALT) 20 See_Comment [Auto mated message] The system which ge nerated this result transmit jace reference range : <=65. The reference range was not used to interpr et this result as beth l/abnormal. [facility]2014-09-14 08:38:00 Test Item Value Reference Range Interpretation Comments Albumin Lvl (test code = Albumin Lvl) 3.4 3.5-5.0 [facility]2014-09-14 08:38:00 Test Item Value Reference Range Interpretation Comments Alk Phos (test code = Alk Phos) 78 39-136 [facility]2014-09-14 08:38:00 Test Item Value Reference Range Interpretation Comments Total Protein (test code = Total 8.3 6.4-8.4 Protein) [facility]2014-09-14 08:38:00 Test Item Value Reference Range Interpretation Comments Bili Total (test code = Bili Total) 0.4 0.2-1.3 [facility]2014-09-14 08:38:00 Test Item Value Reference Range Interpretation Comments eGFR (test code = eGFR) 92 [place] 990284-09-14 08:38:00 Test Item Value Reference Range Interpretation Comments Potassium Lvl (test code = Potassium 4.9 3.5-5.1 Lvl) [facility]2014-09-14 08:38:00 Test Item Value Reference Range Interpretation Comments Chloride Lvl (test code = Chloride Lvl) 104 95-109 [facility]2014-09-14 08:38:00 Test Item Value Reference Range Interpretation Comments CO2 (test code = CO2) 22 24-32 [facility]2014-09-14 08:38:00 Test Item Value Reference Range Interpretation Comments Calcium Lvl (test code = Calcium Lvl) 9.9 8.5-10.5 [facility]2014-09-14 08:38:00 Test Item Value Reference Range Interpretation Comments BUN (test code = BUN) 13 7-22 [facility]2014-09-14 08:38:00 Test Item Value Reference Range Interpretation Comments Creatinine Lvl (test code = Creatinine 0.8 0.5-1.4 Lvl) [facility]2014-09-14 08:38:00 Test Item Value Reference Range Interpretation Comments Sodium Lvl (test code = Sodium Lvl) 135 135-145 [facility]2014-09-14 08:38:00 Test Item Value Reference Range Interpretation Comments Glucose Lvl (test code = Glucose Lvl) 141 70-99 [facility] CenterWxxhvxwWODVXNRWID0236-14-14 08:38:00 Test Item Value Reference Range Interpretation Comments PTT (test code = PTT) 30.6 s 22.9-35.8 [facility] CenterBhcqsfhDCZZXVDWYN8771-34-45 08:38:00 Test Item Value Reference Range Interpretation Comments PT (test code = PT) 13.0 s 12.0-14.7 [place] [address]-09-14 08:38:00 Test Item Value Reference Range Interpretation Comments INR (test code = INR) 0.98 0.85-1.17 [facility]2014-09-14 08:38:00 Test Item Value Reference Range Interpretation Comments A/G Ratio (test code = A/G Ratio) 0.7 0.7-1.6 [place] 990284-09-14 08:38:00 Test Item Value Reference Range Interpretation Comments Globulin (test code = Globulin) 4.9 2.0-4.0 [facility]2014-09-14 08:38:00 Test Item Value Reference Range Interpretation Comments AGAP (test code = AGAP) 13.9 10.0-20.0 [facility]2014-09-14 08:38:00 Test Item Value Reference Range Interpretation Comments B/C Ratio (test code = B/C Ratio) 16 6-25 [facility]2014-09-14 08:38:00 Test Item Value Reference Range Interpretation Comments AST (test code = AST) 30 See_Comment [Auto mated message] The system which ge nerated this result transmit jace reference range : <=37. The reference range was not used to interpr et this result as beth l/abnormal. [facility]2014-09-14 08:38:00 Test Item Value Reference Range Interpretation Comments ALT (test code = ALT) 20 See_Comment [Auto mated message] The system which ge nerated this result transmit jace reference range : <=65. The reference range was not used to interpr et this result as beth l/abnormal. [facility]2014-09-14 08:38:00 Test Item Value Reference Range Interpretation Comments Albumin Lvl (test code = Albumin Lvl) 3.4 3.5-5.0 [facility]2014-09-14 08:38:00 Test Item Value Reference Range Interpretation Comments Alk Phos (test code = Alk Phos) 78 39-136 [facility]2014-09-14 08:38:00 Test Item Value Reference Range Interpretation Comments Total Protein (test code = Total 8.3 6.4-8.4 Protein) [facility]2014-09-14 08:38:00 Test Item Value Reference Range Interpretation Comments Bili Total (test code = Bili Total) 0.4 0.2-1.3 [facility]2014-09-14 08:38:00 Test Item Value Reference Range Interpretation Comments eGFR (test code = eGFR) 92 [facility]2014-09-14 08:38:00 Test Item Value Reference Range Interpretation Comments Potassium Lvl (test code = Potassium 4.9 3.5-5.1 Lvl) [place] 990284-09-14 08:38:00 Test Item Value Reference Range Interpretation Comments Chloride Lvl (test code = Chloride Lvl) 104 95-109 [facility]2014-09-14 08:38:00 Test Item Value Reference Range Interpretation Comments CO2 (test code = CO2) 22 24-32 [facility]2014-09-14 08:38:00 Test Item Value Reference Range Interpretation Comments Calcium Lvl (test code = Calcium Lvl) 9.9 8.5-10.5 [facility]2014-09-14 08:38:00 Test Item Value Reference Range Interpretation Comments BUN (test code = BUN) 13 7-22 [facility]2014-09-14 08:38:00 Test Item Value Reference Range Interpretation Comments Creatinine Lvl (test code = Creatinine 0.8 0.5-1.4 Lvl) [facility]2014-09-14 08:38:00 Test Item Value Reference Range Interpretation Comments Sodium Lvl (test code = Sodium Lvl) 135 135-145 [facility]2014-09-14 08:38:00 Test Item Value Reference Range Interpretation Comments Glucose Lvl (test code = Glucose Lvl) 141 70-99 [facility] CenterYqfiqtpWJSDHOULAV6107-48-21 08:38:00 Test Item Value Reference Range Interpretation Comments PTT (test code = PTT) 30.6 s 22.9-35.8 [facility] CenterJhzvwsbXHIFASNAGD1202-74-99 08:38:00 Test Item Value Reference Range Interpretation Comments PT (test code = PT) 13.0 s 12.0-14.7 [facility] CenterYdgusgpYJMKKQFCKA0793-47-66 08:38:00 Test Item Value Reference Range Interpretation Comments INR (test code = INR) 0.98 0.85-1.17 [facility] 1970 [facility] Pt Name: SARAH LOVE [employer] Phys: Julio Wild MD [place] [id number] : 1970 Age: 50 SEX:F [phone] Exam Date: 10/16/20 Status: DEP ERAcct: [id number] Loc: ERS Pt Unit #: [id number] Report #: [id number] CC: Julio Wild MD CAT SCAN REPORT Order # Category/Exam [id number] CT/CTA Angio Neck W WO Con ([id number]): . Results CT head without contrast: Ventricles have normal size and position. No intracranial mass, hemorrhage, infarct,or other acuteprocess. Paranasal sinuses are clear. IMPRESSION: Unremarkable CT head. CTA head: Multiple axial tomograms obtained to the head with IV enhancement in the arterial phase. Multiplanar reconstruction and 3-D postprocessing according to angiogram protocol. INDICATIONS:Headache FINDINGS: Intracranial internal carotid arteries appear patent and symmetric. Middle cerebral arteries appear patent and symmetric. M2 and M3 branches appear symmetric. No evidence of focal stenosis or occlusion. Anterior cerebral arteries appear patent and symmetric with no evidence of stenosis or occlusion. Basilar artery appears patent. No significant stenosis. Posterior cerebral arteries appear patent and symmetric. No focal stenosis or occlusion identified. IMPRESSION: Unremarkable CTA brain CTA neck: Multiple axial tomograms obtained through the neck with IV enhancement in arterial phase. Multiplanar recon struction and 3-D postprocessing according to angiogram protocol. INDICATION: Headache FINDINGS: No stenosis identified at the origin of the arch vessels. Right common carotid artery appears patent andsymmetric. No focal stenosis. Right bulb and right internal carotid artery appear patent. No evidence of stenosis. Left common carotid artery appears patent. No evidence of stenosis. Left internal carotid artery appears patent. No evidence of stenosis identified. Vertebral arteries are patent. Mildly dominant left vertebral. Visualized soft tissues of the neck appear unremarkable. No mass or adenopathy. IMPRESSION: Unremarkable CTA of neck Transcribed Date/Time: 10/17/2020 1:35 PM Reported By: Jeferson Varner MD Electronically Signed Date/Time: 10/17/20 1697 Technologist: FABI Dictated Date/Time: 10/17/20 1335 Transcribed Date/Time:CTA [facility]io [facility] : 1970 [facility] Pt Name: SARAH LOVE [employer] [address] Phys: [place] [address] : 1970 Age: 50 SEX:F [phone] Exam Date: 10/16/20 Status: REG ER Acct: [id number] Loc: [facility] Pt Unit #: [id number] Report #: [id number] CC: ED TEMP PROVIDER Julio Wild MD CAT SCAN REPORT Order # Category/Exam [id number] CT/CTA Angio Head W WO Con ([id number]): . Results CT head without contrast: Ventricles have normal size and position. No intracranial mass, hemorrhage, infarct, or other acuteprocess. Paranasal sinuses are clear. IMPRESSION: Unremarkable CT head. CTA head: Multiple axial tomograms obtained to the head with IV enhancement in the arterial phase.Multiplanar reconstruction and 3-D postprocessing according to angiogram protocol. INDICATIONS:Headache FINDINGS: Intracranial internal carotid arteries appear patent and symmetric. Middle cerebral arteries appear patent and symmetric. M2 and M3 branches appear symmetric. No evidence of focal stenosisor occlusion. Anterior cerebral arteries appear patent and symmetric with no evidence of stenosis orocclusion. Basilar artery appears patent. No significant stenosis. Posterior cerebral arteries appear patent and symmetric. No focal stenosis or occlusion identified. IMPRESSION: Unremarkable CTA brain CTA neck: Multiple axial tomograms obtained through the neck with IV enhancement in arterial phase. Multiplanar reconstruction and 3-D postprocessing according to angiogram protocol. INDICATION: Headache FINDINGS: No stenosis identified at the origin of the arch vessels. Right common carotid artery appears patent and symmetric. No focal stenosis. Right bulb and right internal carotid artery appear patent. No evidence of stenosis. Left common carotid artery appears patent. No evidence of stenosis. Left internal carotid artery appears patent. No evidence of stenosis identified. Vertebral arteries are patent. Mildly dominant left vertebral. Visualized soft tissues of the neck appear unremarkable. Nomass or adenopathy. IMPRESSION: Unremarkable CTA of neck Reported By: Jeferson Varner MD Electronically Signed Date/Time: 10/16/20 1617 Technologist: FABI Dictated Date/Time: 10/16/20 1606 Transcribed Date/Time: Notes Date/Time Note Provider Source 2022-08-15 15:56:00-00:00 [id number] [address] PATIENT NAME: SARAH LOVE ADMIT DATE: 08/13/22 ACCOUNT NO: [id number] ROOM NO: AGE: 52 REPORT TYPE: OPERATIVE REPORT SEX: F ADMITTING PHYSICIAN: ATTENDING PHYSICIAN: Matheus Silva MD OPERATION DATE: 08/13/2022 PREOPERATIVE DIAGNOSES: Pelvic pain, left lower quadrant pain, AUB - O, left ovarian cyst. POSTOPERATIVE DIAGNOSES: Pelvic pain, left lower quadrant pain, AUB - O, left ovarian cyst, left [JUAN E: 00:29] paratubal mass, possible endometriosis of the posterior broad ligament s and lateral erickson, [TIME: 00:41] left tube as well probably, possible left tubal endometriosis and posterior wall [TIME: 00:53] apical prolapse, stage I. PROCEDURES PERFORMED: Robotic-assisted total lap aroscopic hysterectomy. Bilateral salpingo-oophorectomy. Extensive lysis of adhesions of the omentum, bladder and sigmoid from the umbilical and Pfann enstiel scar, ventral hernia sites from the left pelvis to the left tube and ovary, and to the entire anterior wall of the uterus as well as t he bladder, this took more than 50% of the case almost two-thirds of the time. Uterosac ral ligament suspension. Colpopexy was performed. Cystoscopy. SURGEON: Matheus Silva MD. PILOT PLANT SUPERVISOR: Teddy Villanueva. ANESTHESIA: General. FINDINGS: Extensive omentum, bladder and left pelvic sigmoid adhesion, omental adhesions to the umbilicus. Pfannenstiel scar he rnia sites. Uterosacral colpopexy was performed since apical prolapse wa s much more significant after the hysterectomy was performed where the uterus was being suspended up due to all the adhesions. Cystoscopy showed pat ent ureters. No evidence of any suture or foreign body in the bladder. Possible endomet riosis of the left tube and bilateral posterior broad li gaments. Cuff closure with 0 Vicryl x5 sutures were placed and the uterosacral suspensions, 2 suture s, 1 on each side ureters and bladder unremarkable. COMPLICATIONS: No complications. ESTIMATED BLOOD LOSS: 50 mL. SPECIMENS REMOVED: Uterus, b ilateral tubes and ovaries along with endometriosis on the peritoneum. PATIENT NAME: SARAH LOVE ACCOUNT #: [id number] FLUIDS: 1600. URINE OUTPUT: 600 mL APPROACH: Robotic laparoscopic. WOUND CLASSIFICATION: Clean contaminated. COUNTS: Correct. DISPOSITION: Home. INDICATIONS: The patient is a 52-year-ol d with significant left lower quadrant pelvic pain, which was her presenting symptom; i rregular periods in the perimenopausal time; however , on investigation of other etiologies for her pain mostly no other pathology was found. Given the l ocation of her pain and the finding of a left adnexal mass we discussed abou t the possible [employer] SUPERVISOR etiology. The patient wanted to proceed with definitive tr eatment with surgery. Endometrial sampling was negative for endometria l atypia or malignancy. Since the patient has a very high BMI, the risk factor s for uterine cancer, the biopsy was performed. She understood that proced ures as needed would be performed. PROCEDURE IN DETAIL: After she was consented, carlos anna was taken back to the OR, placed in supine fashion on the operatin g table. General anesthesia was given, 2 grams of Ancef were given. SCDs were placed. P ositioning was checked and arms tucked by the side. The patient was placed in dorsal lithotomy position using Andreas stirrups. SCDs were started. Timeout was done. Procedure was started. Abdomen prepped with ChloraPrep. Vulva, vagina, and perineum with Betadine. After the appropriate draping was done speculum placed to expose the cervix. Bladder catheterized with a 16-Divehi Black attached to a drainage bag. Cervix grasped with 2 Allis clamps and then a s rose tooth tenaculum. Cervix dilated to 16-Divehi. A medium cup VCare was int roduced into the uterus and fixed in place. All the instruments were removed . This area was draped. A 1 cm supraumbilical incisi on 15 cm from the symphysis was made in the midline. Jameson technique was used to incise the fascia, tied with 0 Vicryl sutures. Peritoneum entered sharply. Jameson introduced. S ite of entry was checked and was unremarkable after adequ ate insufflation. Two 8 ports on the right side and left side were placed. The left upper quadrant A irSeal port was slightly staggered and triangulated to the left upper vanita drant, everything else was in the straight line. All the robotic trocars were placed without any problems. Then, clearly visible omenta l adhesions to the anterior abdominal wall starting at the umbilicus going inferiorly. There was no visualization of any pelvic organ. The patient was placed in 23 degr ees of Trendelenburg and the robot was docked from her right side. Camera was introduce d, targeting was performed, then fenestrated grasper was placed through port #1, ports # 3 and #4, ; force graspers, which were atraumatic. After i nserting the tips under direct visualization the ports were burped, then I went to the console. Systematically the adhesions of the omentum were taken down from the anterior abdominal wall. There was an umbilical hernia th rough which the omentum was protruding, through this omentum from here by ene almendarez down the surrounding hernia sac adhesions with the help o f monopolar scissors. The PATIENT NAME: SARAH LOVE ACCOUNT #: [id number] entire contents were pulled out and . T hen, windows were made in the omentum and taken down from the entire anterior abdominal wall, not only in the midline, but on both sides all the way to identi fy the round ligament tear. Once the round ligaments were identified then the further adhesions were taken down coming towards the blad leslye laterally first on both sides and then centrally taking it down all the way to the scar at the bl adder flap. Then omental adhesions were found to the right tube and right anterior broad ligament, superior and inferior to the broad ligament and these adhesions were taken down sharply as well as with caut margarita clearly identifying the right tube and ovary on the right side. Then on the left side there was a significant amount of adhesions that had to be taken down in order for me to visualize the sigmoid colon. Once this was visualized, this wa s clearly adhered to the left tube and ovary, left pelvic sidewall posteriorly. The omental adhesions were identified and taken down from the left pericolic gutter. T hen, at the level of the infundibulopelvic ligament f rom the tube there was a paratubal cyst, it could be paraovarian, ovarian or paratubal or tub al. This had a bluish dark appearance, could be a hematosalpinx or a hemorrhagic cyst _ ____[TIME: 09:09] part of an endometrioma. The adhesions were then taken down from the ovary. Here, the adhesions of the uterus were taken down systematically with sharp dissection and occasional monopolar cautery. Once the e ntire omentum was taken down here from anterior broad ligaments and the uterus then attention was directed to the left posterior broad ligament. The peritoneum superior to the left round ligame nt was opened up all the way parallel to the IP ligament. Here dissection was performed even inferior to the round ligament, down the broad ligament. Onc e this was opened up, I could isolate the round. Opened up the lateral wall, i dentified the ureter on the medial leaf of the broad ligament. This was much significantly inferior and opening in the peritoneum wa s made between the IP and ureter at the brim of the pelvis, then sigmoid colon was taken down from i ts adhesions on the lateral wall, isolating the IP as well and from the IP l eaving only the natural attachment of the colon. Then, once IP ligament was very well visualized and isolated this was left. This was then taken down with the help of the bipolar graspers and scissors monopolar. Then, the round ligament was cauterized and cut as well. Then, dissectio n on the posterior peritoneum was performed towards the uterosacral ligament. The endometriosis on the posterior broad ligament was excised along with that. This was clearly areas of bl eeding and tissue that appeared to be endometriotic. On the opposite side, dissection was performed a round the round ligament, superior and inferior to it, isolating the round , then taken down the broad ligament to isolate lateral to the IP and the ur eter was identified at the pelvic brim. Then, peritoneal incision m merlin medial to the IP. Once this window was enlarged the IP ligament cauterized and cut with bipolar graspers and monopolar scissors. Round ligament was cauterize d and cut as well. Then, the peritoneum and the implants were excised from th e lateral wall carefully preserving the ureter in its course. Then coming down to the right uterosacral, at this point the vessels were identified and th en isolated, taking down the rest of the broad ligament with the bipolar and the scissors on both sides. Then, once the vessels were identified the bladd er flap was raised. The paravesical areas were opened up laterally a nd found the plane on the anterior vaginal wall and the bladder was dissec jace sharply off the anterior PATIENT NAME: SARAH LOVE ACCOUNT #: [place] [id number] vaginal wall in the lower part of the uterus. On ce this was retracted inferiorly in the center and vesical spa richa were opened up. The entire bladder was dissected inferiorly wit h sharp dissection and occasional cautery as needed. Once the anterior vaginal wall was well visualiz ed and the uterine vessels on both sides were well visuali zed, they were both cauterized with the fenestrated bipolar and then taken down with the hel p of scissors. Cardinal ligaments were cauterized and cut as well, then circumferential colpotomy performed with monopolar tip of scissors, o pening 2 time. The specimen was detached and pulled out through the vagina. Thorough irrigat ion and suction performed. Closure was performed with 0 Vicryl sutures on each of the e nds of the cuff and three [id number]-cg-[id number] in the center with 0 Vicryl inte rrupted sutures, knots tied inside. Then uterosacral lig aments and vagina appear to need suspension as there was prolapse at the apex, posterior wall prolaps e as well, but she is not consented for that, so apical suspension was imp ortant. Uterosacral ligaments were identified. Ureters w ere dissected laterally away from the uterosacrals. Once the uterosacral liga ments were picked up, the 0 Vicryl suture was taken in a [id number] fashion and then placed through the posterior wall and the anterior vaginal wall that were dissected including the connective tissue and the fascia, and they were tied down first on the right side, then on the left side. Both suspensions we re performed and there was a significant fall at the apex and the point C was at -7, which is satisfactory for this patient as she was short as well. Cystoscopy was performed with a 17-Frenc h sheath 30-degree lens normal saline. Excellent jets of urine from both ureteral orifi richa. There was no evidence of any trauma to the bladder or foreign body. Black was replaced. All the trocars were removed. All pedicles were checked and the hemostatic agent was sprayed on, Jeanette was powdered form, also Surgicel was sprayed on the entire vaginal cuff and all pedicles. Tr ocars were removed under direct vision after the patient was flattened out. All needle counts were correct. The patient tolerated the procedure well. Um bilical incision and the fascia closed with the tagged 0 Vicryl sutures tied to each other. All skin incisions closed with the help of interrupted 4-0 Vicryl sutures. Dermabond used for closure. Black and the vaginal occluder were danni sole. Instrument and sponge counts were correct. The patient tolerated the procedure wel l. She was recovered from anesthesia and taken to PACU in stable condition and her friend was debriefed about her procedure and condition. She has a 1-w kotlik followup appointment with me. Dictated By: Matheus Silva MD Date Dictated: 08/15/2022 15:56:22 Date Transcribed: 08/15/2022 18:47:22 BARB/CAPRICE Receipt ID: [id number] Authenticated and Edited by Matheus Silva MD On 08/27/22 3:29:28 PM PATIENT NAME: SARAH LOVE ACCOUNT #: LA [id number] at 0331 PATIENT NAME: SARAH LOVE ACCOUNT #: LA [id number] 2022-08-13 16:45:00-00:00 [facility] ([facility]) Brief Op Note REPORT#:[id number] REPORT STATUS: Signed DATE:08/13/22 TIME:1644 PATIENT: SARAH LOVE UNIT #: [id number] ROOM/BED: : 72 AGE: 52 SEX: F ATTEND: Sa virgen Silva MD ADM AUTHOR: Matheus Silva MD * ALL edits or amendments must be made on the el [employer]/computer document * Op/Inv Proc Note - Brief Pre-procedure diagnosis: Pelvic Pain, LLQ pain, AUB-O, left ovarian cyst Post-procedure diagnosis: sa me as pre procedure dx, left tubal or paratubal mass , ? endometriosis, left tube and left and right posterior broad ligaments, posterior wall and apical prolapse Procedures performed: RTLH, BSO, extensive ALEX fro m omental, bladder and left pelvis sigmoid adhesions and from umb and pfannensteil scar hernia sites, USLS colpopexy, cysto Primary Surgeon: lisseth Can Cutter(s): teddy villanueva Anesthesia: general anesthesia Findings: extensive omental, bladder and left pelvis sigmo id adhesions and from umb and pfannensteil scar hernia sites, USLS colpopexy s noris apical prolapse after surgery completed, cysto, patent ureters, possib le endo, left tube and sree posteriro broad ligs, cuff closure 0-laura 5 sutures, USL one sticth each side , ureters patent no bladder injury Complications: none Estimated blood loss in ml's: 50 Specimens removed/altered: uterus bilat tubes an d ovaries Fluids: 1600 Urine output: 600 Approach: laparoscopic, robotic Wound class: clean-contaminated Disposition: plan to D/C home Counts: Sponge count: correct Instrument count: correct Needle count: correct Electronically Signed by Matheus Silva MD o n 08/13/22 at 1657 RPT #: [id number] END OF REPORT 2022-08-10 16:06:00-00:00 [id number] [facility] [id number] [place] [id number] PATIENT NAME: SARAH LOVE ADMIT DATE: ACCOUNT NO: [id number] ROOM NO: AGE: 52 REPORT TYPE: eELECTROCARDIOGRAM SEX: F ADMITTING PHYSICIAN: ATTENDING PHYSICIAN: Matheus Silva MD Order: [id number] Test Reason : PRE OP Test Date/Time Stamp: WedAug 10 2022 16:06:32 Blood Pressure : / mmHG Vent. Rate : 091 BPM Atrial Rate : 091 BPM P-R Int : 154 ms QRS Dur : 084 ms QT Int : 366 ms P-R-T Axes : 036 -14 014 degree s QTc Int : 450 ms Normal sinus rhythm Possible Left atrial enlargement Left ventricular hypertrophy Abnormal ECG When compared with ECG of 10-AUG-2022 16:06, (Un confirmed) No significant change was found Confirmed by Alyssa Garcia ([id number]) on 3 7:47:35 AM Referred By: Matheus Silva Confirmed by:Alyssa Garcia Electronically Signed by Alyssa Garcia MD o n 08/13/22 at 0714 PATIENT NAME: SARAH LOVE ACCOUNT #: LA [id number]
[2022-09-02] MEDS ORDERED: NA CHLORIDE 0.9% 1,000 ML ONE (23:15)
[2022-09-02] MEDS ORDERED: ONDANSETRON 4 MG/2 ML VIAL ONE (23:20)
[2022-09-02] MEDS ORDERED: DIPHENHYDRAMINE 50 MG/ML VIAL ONE (23:20)
[2022-09-02 23:53] LABS: Absolute Lymphocytes (CBC) 3.5 K/uL (0.7-4.9); Hematocrit 36.1 % (36.0-45.0); Lymphocytes % 34.4 % (15.3-44.8); MCV 87.9 fL (80-100); MPV 8.6 fL (7.6-11.3); RBC Red Blood Cell Count 4.11 M/uL (3.86-4.86)
[2022-09-02 23:55] LABS: Albumin 3.2 g/dL (3.4-5.0); Bilirubin Total 0.2 mg/dL (0.2-1.0); Potassium 3.7 mEq/L (3.5-5.1); Protein, Total 7.6 g/dL (6.4-8.2)
[2022-09-03 00:05] LABS: Protime INR 0.97
[2022-09-03 00:15] LABS: Urine Bacteria None Seen /HPF (<20); Urine RBC >50 /HPF (None Seen)
[2022-09-03 00:16] LABS: Urine Color Red (Yellow)
[2022-09-03 00:17] LABS: Specific Gravity ND (1.005-1.030); Urine Bilirubin ND (Negative); Urine Blood ND (Negative); Urine Clarity Extremely Turbid (Clear); Urine Glucose ND (Negative); Urine Protein ND (Negative); Urine Urobilinogen ND (Normal); Urine pH ND (5.0-7.0)
[2022-09-03] MEDS ORDERED: NA CHLORIDE 0.9% 500 ML ONE (00:33)
--- NOTE | 2022-09-03 01:15 | ER ---
Nurse's Notes [facility] Name: Gill Car Age: 52 yrs Sex: Female : 1970 Arrival Date: 09/02/2022 Time: 22:37 Bed External Waiting Private MD: Diagnosis: Other specified abnormal uterine and vaginal bleeding Presentation: 09/02 22:50 Chief complaint: Patient states: sudden onset heavy vaginal bleeding began approx 10 pm kl assisted pt with changing large amount of vag bleeding noted. Coronavirus screen: Vaccine status: Patient reports being unvaccinated. Ebola Screen: Patient negative for fever greater than or equal to 101.5 degrees Fahrenheit, and additional compatible Ebola Virus Disease symptoms. Initial Sepsis Screen: Does the patient meet any 2 criteria? HR > 90 bpm. Does the patient have a suspected source of infection? No. Patient's initial sepsis screen is negative. Risk Assessment: Do you want to hurt yourself or someone else? Patient reports no desire to harm self or others. Onset of symptoms was September 02, 2022 at 22:00. 22:50 Method Of Arrival: Ambulatory 22:50 Acuity: IWONA 2 22:54 Note total abdominal hysterectomy x 3 weeks ago. Triage Assessment: 22:54 General: Appears distressed, Behavior is cooperative, anxious. Pain: Denies pain. : kl Reports vaginal bleeding that is with clots, heavy flow pt reports feeling dizzy at time. Historical: - Home Meds: 22:52 Lexapro 20 mg Oral tab 1 tab once daily [Active]; nasal spray [Active]; nasalcort kl [Active]; Zyrtec 10 mg Oral tab 1 tab once daily [Active]; - PMHx: 22:52 Asthma; pericarditis; kl - PSHx: 22:52 hysterectomy; section; Appendectomy; bladder suspension; kl - Immunization history:: Adult Immunizations Pneumococcal vaccine is up to date, Flu vaccine is up to date. - Social history:: Smoking status: Patient denies any tobacco usage or history of. Screenin:10 [facility] ED Fall Risk Assessment (Adult) History of falling in the last 3 months, lg3 including since admission No falls in past 3 months (0 pts). Abuse screen: Denies threats or abuse. Denies injuries from another. Nutritional screening: No deficits noted. Tuberculosis screening: No symptoms or risk factors identified. Assessment: 23:10 General: Appears in no apparent distress. comfortable, Behavior is calm, cooperative. lg3 Pain: Denies pain. Neuro: No deficits noted. [place] Agitation-Sedation Scale (RASS): 0 - Alert and Calm Level of Consciousness is awake, alert, obeys commands, Oriented to person, place, time, situation. Cardiovascular: No deficits noted. Denies chest pain, shortness of breath, Capillary refill < 3 seconds Clubbing of nail beds is absent JVD is absent Patient's skin is warm and dry. Respiratory: No deficits noted. Airway is patent Trachea midline Respiratory effort is even, unlabored, Respiratory pattern is regular, symmetrical. GI: No deficits noted. No signs and/or symptoms were reported involving the gastrointestinal system. Abdomen is round non-distended. : asehly blood, Reports vaginal bleeding that is bright red, with clots, heavy flow Denies pain. EENT: No deficits noted. No signs and/or symptoms were reported regarding the EENT system. Derm: No deficits noted. No signs and/or symptoms reported regarding the dermatologic system. Skin is intact, is healthy with good turgor, Skin is dry, Skin is normal, Skin temperature is warm. Musculoskeletal: No deficits noted. No signs and/or symptoms reported regarding the musculoskeletal system. Circulation, motion, and sensation intact. Range of motion: intact in all extremities. 23:50 General: pt became hypotensive and tachycardic on ambulation to bedside commode. at lg3 this time, pt had large amounts of bleeding with clots saturating adult pull brief, 2 alvaro-pads and bed angelito. pt and bed changed. pt taken to CT. 09/03 00:20 General: on arrival from CT. pt had saturated adult brief, 3 alvaro-pads and bed angelito. lg3 large volume of clots noted. provider notified . 01:00 Reassessment: Patient appears in no apparent distress at this time. No changes from lg3 previously documented assessment. Patient and/or family updated on plan of care and expected duration. Pain level reassessed. Patient is alert, oriented x 3, equal unlabored respirations, skin warm/dry/pink. Patient denies pain at this time. 01:15 General: pt taken to PACU per Dr. Esquivel. Report given to YE Royal. blood lg3 transfusion still in process. . Vital Signs: 09/02 22:50 BP 127 / 87; Pulse 108; Resp 18; Temp 98; Pulse Ox 97% on R/A; Weight 111.13 kg (R); kl Height 5 ft. 4 in. ; Pain 0/10; 09/03 00:27 BP 110 / 76; Pulse 103; Resp 18; Temp 98.6; Pulse Ox 97% on R/A; rv1 01:00 lg3 09/02 22:50 Body Mass Index 42.05 (111.13 kg, 162.56 cm) kl 09/02 22:50 Pain Scale: Adult kl 01:00 see transfustion record lg3 ED Course: 09/02 22:38 Patient arrived in ED. ag3 22:41 Deann Epperson MD is Attending Physician. sp3 22:46 Chrissie Mendoza RN is Primary Nurse. lg3 22:52 Triage completed. kl 22:55 Placed in gown. Bed in low position. Call light in reach. Adult w/ patient. kl 23:03 Inserted saline lock: 20 gauge in left antecubital area, using aseptic technique. Blood rv1 collected. 23:07 Type And Screen Sent. lg3 23:07 PT-INR Sent. lg3 23:07 CBC with Diff Sent. lg3 23:07 CMP Sent. lg3 23:07 Lipase Sent. lg3 23:10 Client placed on continuous cardiac and pulse oximetry monitoring. NIBP monitoring lg3 applied. Door closed. Noise minimized. Warm blanket given. Family accompanied patient. 09/03 00:12 CT Abd/Pelvis - IV Contrast Only In Process Unspecified. EDMS 01:14 Uma Montanez MD is Hospitalizing Provider. sp3 01:15 No provider procedures requiring assistance completed. Inserted saline lock: 22 gauge lg3 in right ,using aseptic technique. shoulder. 01:43 Arm band placed on right wrist. lg3 01:44 Patient admitted, IV remains in place. lg3 Administered Medications: 09/02 23:13 Drug: NS 0.9% IV 1000 ml Route: IV; Rate: 1 bolus; Site: left antecubital; lg3 09/03 01:20 Follow up: IV Status: continued upon transfer to pacu; IV Intake: 500ml vc1 09/02 23:43 Drug: diphenhydrAMINE IVP 25 mg Route: IVP; Site: left antecubital; lg3 09/03 00:00 Follow up: Response: No adverse reaction; Marked relief of symptoms vc1 09/02 23:43 Drug: Ondansetron IVP 8 mg Route: IVP; Site: left antecubital; lg3 09/03 00:00 Follow up: Response: No adverse reaction; Marked relief of symptoms vc1 Medication: 01:44 VIS not applicable for this client. lg3 Intake: 01:20 IV: 500ml; Total: 500ml. vc1 Outcome: 01:14 Decision to Hospitalize by Provider. sp3 01:19 Patient left the ED. as6 01:43 Admitted to OR accompanied by nurse, via stretcher. lg3 01:43 Condition: stable 01:43 Instructed on the need for admit, Demonstrated understanding of instructions. Signatures: Dispatcher [employer] EDJessy Flaherty, Tosin Nolan RN 3 Chrissie Mendoza RN RN lg3 Deann Epperson MD MD sp3 Joseph Min RN RN as6 Cat Argueta RN RN vc1 Kerry Oro rv1 Corrections: (The following items were deleted from the chart) 01:38 09/02 23:50 General: pt became hypotensive and tachycardic on ambulation to bedside lg3 commode. at this time, pt had large amounts of bleeding saturating adult pull up, 2 alvaro-pads and bed angelito. pt and bed changed. pt taken to CT. lg3
--- NOTE | 2022-09-03 01:15 | EDPHYS ---
Physician Documentation [facility] Name: Gill Car Age: 52 yrs Sex: Female : 1970 Arrival Date: 09/02/2022 Time: 22:37 Bed External Waiting Private MD: ED Physician Deann Epperson HPI: 09/02 23:20 This 52 yrs old Female presents to ER via Ambulatory with complaints of Vaginal sp3 Bleeding. 23:20 52-year-old female with history of asthma and prior pericarditis who had a total sp3 abdominal hysterectomy on August [address] Montanez now presents to the ED with chief complaint heavy vaginal bleeding for the last hour prior to arrival. For the last 3 days she had started to spot and today it significantly increased. She contacted her physician who referred her here for imaging and lab work. She reports no other symptoms including headache, neck pain, chest pain, shortness of breath, abdominal pain, back pain, syncope, near syncope, fever, URI symptoms, rash, or any other signs or symptoms on ROS at this time.. Historical: - Home Meds: 22:52 Lexapro 20 mg Oral tab 1 tab once daily [Active]; nasal spray [Active]; nasalcort kl [Active]; Zyrtec 10 mg Oral tab 1 tab once daily [Active]; - PMHx: 22:52 Asthma; pericarditis; kl - PSHx: 22:52 hysterectomy; section; Appendectomy; bladder suspension; kl - Immunization history:: Adult Immunizations Pneumococcal vaccine is up to date, Flu vaccine is up to date. - Social history:: Smoking status: Patient denies any tobacco usage or history of. ROS: 23:23 Constitutional: Negative for fever, chills, and weight loss, Eyes: Negative for injury, sp3 pain, redness, and discharge, ENT: Negative for injury, pain, and discharge, Neck: Negative for injury, pain, and swelling, Cardiovascular: Negative for chest pain, palpitations, and edema, Respiratory: Negative for shortness of breath, cough, wheezing, and pleuritic chest pain, Abdomen/GI: Negative for abdominal pain, nausea, vomiting, diarrhea, and constipation, Back: Negative for injury and pain, MS/Extremity: Negative for injury and deformity, Skin: Negative for injury, rash, and discoloration, Neuro: Negative for headache, weakness, numbness, tingling, and seizure, Psych: Negative for depression, anxiety, suicide ideation, homicidal ideation, and hallucinations, Allergy/Immunology: Negative for hives, rash, and allergies, Endocrine: Negative for neck swelling, polydipsia, polyuria, polyphagia, and marked weight changes. 23:23 All other systems are negative. Exam: 23:23 Constitutional: This is a well developed, well nourished patient who is awake, alert, sp3 and in no acute distress. Head/Face: Normocephalic, atraumatic. Eyes: Pupils equal round and reactive to light, extra-ocular motions intact. Lids and lashes normal. Conjunctiva and sclera are non-icteric and not injected. Cornea within normal limits. Periorbital areas with no swelling, redness, or edema. Neck: Trachea midline, no thyromegaly or masses palpated, and no cervical lymphadenopathy. Supple, full range of motion without nuchal rigidity, or vertebral point tenderness. No Meningismus. Chest/axilla: Normal chest wall appearance and motion. Nontender with no deformity. No lesions are appreciated. Cardiovascular: Regular rate and rhythm with a normal S1 and S2. No gallops, murmurs, or rubs. Normal PMI, no JVD. No pulse deficits. Respiratory: Lungs have equal breath sounds bilaterally, clear to auscultation and percussion. No rales, rhonchi or wheezes noted. No increased work of breathing, no retractions or nasal flaring. Abdomen/GI: Soft, non-tender, with normal bowel sounds. No distension or tympany. No guarding or rebound. No evidence of tenderness throughout. Back: No spinal tenderness. No costovertebral tenderness. Full range of motion. Skin: Warm, dry with normal turgor. Normal color with no rashes, no lesions, and no evidence of cellulitis. MS/ Extremity: Pulses equal, no cyanosis. Neurovascular intact. Full, normal range of motion. Neuro: Awake and alert, GCS 15, oriented to person, place, time, and situation. Cranial nerves II-XII grossly intact. Motor strength 5/5 in all extremities. Sensory grossly intact. Cerebellar exam normal. Normal gait. Psych: Awake, alert, with orientation to person, place and time. Behavior, mood, and affect are within normal limits. 23:23 : Speculum exam deferred. Patient has significant vaginal bleeding which was visualized.. Vital Signs: 22:50 BP 127 / 87; Pulse 108; Resp 18; Temp 98; Pulse Ox 97% on R/A; Weight 111.13 kg (R); kl Height 5 ft. 4 in. ; Pain 0/10; 09/03 00:27 BP 110 / 76; Pulse 103; Resp 18; Temp 98.6; Pulse Ox 97% on R/A; rv1 01:00 lg3 09/02 22:50 Body Mass Index 42.05 (111.13 kg, 162.56 cm) kl 09/02 22:50 Pain Scale: Adult kl 01:00 see transfustion record lg3 MDM: 09/02 22:49 Patient medically screened. sp3 23:25 Data reviewed: vital signs, nurses notes, lab test result(s), radiologic studies. ED sp3 course: 52-year-old female with postop vaginal bleeding from a total abdominal hysterectomy from 08/13. We will obtain CT scan of the abdomen and pelvis along with laboratory values including type and screen. Normal saline IV has been ordered along with Benadryl and Zofran due to contrast related emesis the patient reports from her past experiences. Patient will remain n.p.o. and we will consult with Dr. Montanez once data is acquired.. 09/03 00:21 ED course: Heart rate is 102 and blood pressure 110 systolic. Patient back from CT sp3 scan. I reviewed the CT scan myself and demonstrates localized encapsulated bleeding without free blood in the abdomen. However due to the extent of vaginal bleeding, we will go ahead and transfuse 2 units of PRBCs while awaiting radiology study. Hemoglobin initially was 10. Patient will be transferred out once all data is retrieved and consultation is made with her physician.. 00:42 ED course: Discussed with gynecology who will be coming into the emergency department sp3 and performing vaginal exam under anesthesia in the operating room. I discussed this with the aircraft maintenance supervisor and we will prepare for said course.. 01:13 ED course: Patient going to the OR at this time. Patient will be admitted under 23-hour sp3 observation.. 09/02 22:50 Order name: CBC with Diff; Complete Time: 00:39 sp3 09/02 22:50 Order name: CMP; Complete Time: 00:39 sp3 09/02 22:50 Order name: Lipase; Complete Time: 00:39 sp3 09/02 22:50 Order name: Urinalysis w/ reflexes; Complete Time: 00:39 sp3 09/02 22:50 Order name: PT-INR; Complete Time: 00:39 sp3 09/02 22:50 Order name: Type And Screen sp3 09/03 00:22 Order name: Bb Add On vc1 09/03 00:26 Order name: Packed RBC Leukored [facility] 09/02 22:50 Order name: CT Abd/Pelvis - IV Contrast Only sp3 09/02 22:50 Order name: IV Saline Lock; Complete Time: 23:07 sp3 09/02 22:50 Order name: Labs collected and sent; Complete Time: 23:07 sp3 09/02 22:50 Order name: NPO; Complete Time: 23:07 sp3 Administered Medications: 09/02 23:13 Drug: NS 0.9% IV 1000 ml Route: IV; Rate: 1 bolus; Site: left antecubital; [facility] 09/03 01:20 Follow up: IV Status: continued upon transfer to pacu; IV Intake: 500ml vc1 09/02 23:43 Drug: diphenhydrAMINE IVP 25 mg Route: IVP; Site: left antecubital; 3 09/03 00:00 Follow up: Response: No adverse reaction; Marked relief of symptoms vc1 09/02 23:43 Drug: Ondansetron IVP 8 mg Route: IVP; Site: left antecubital; 3 09/03 00:00 Follow up: Response: No adverse reaction; Marked relief of symptoms vc1 Disposition Summary: 09/03/22 01:14 Hospitalization Ordered Hospitalization Status: Observation sp3 Provider: Uma Montanez3 Location: Telemetry/MedSurg (observation) sp3 Condition: Stable sp3 Problem: new sp3 Symptoms: have worsened sp3 Bed/Room Type: Standard sp3 Room Assignment: sp3 Diagnosis - Other specified abnormal uterine and vaginal bleeding sp3 Forms: - Medication Reconciliation Form sp3 - SBAR form sp3 Signatures: Dispatcher [employer] Jessy Nova RN RN kl Gibson, Lacie, RN RN lg3 Deann Epperson MD MD sp3 Kendall, Cat RN vc1
[2022-09-03] MEDS ORDERED: LIDOCAINE 1% MPF 5 ML VIAL ONE ×2 (01:40→19:13)
[2022-09-03] MEDS ORDERED: FENTANYL CITR 100 MCG/2 ML ONE ×2 (01:40→19:13)
[2022-09-03] MEDS ORDERED: GLYCOPYRROLATE 0.2 MG/ML SYR ONE ×2 (01:40→02:32)
[2022-09-03] MEDS ORDERED: MIDAZOLAM HCL 2 MG/2 ML INJ ONE ×2 (01:40→19:13)
[2022-09-03] MEDS ORDERED: dexAMETHasone 4 MG/ML VIAL ONE ×2 (01:41→19:13)
[2022-09-03] MEDS ORDERED: ROCURONIUM 50 MG/5 ML VIAL IV ONE (01:41)
[2022-09-03] MEDS ORDERED: ONDANSETRON 4 MG/2 ML VIAL ONE ×2 (01:41→19:13)
[2022-09-03] MEDS: CEFAZOLIN SODIUM 2 GM/VIAL ONE ×2 (01:42→02:00)
[2022-09-03] MEDS ORDERED: ETOMIDATE 20 MG/10 ML VIAL IV ONE (01:42)
[2022-09-03] MEDS: CEFAZOLIN SODIUM 1 GM/VIAL ONE ×2 (01:42→02:00)
[2022-09-03] MEDS ORDERED: NEOSTIGMINE 1 MG/ML -10 ML VIAL ONE (01:42)
--- NOTE | 2022-09-03 01:44 | P.CNS ---
Date of Consult: 09/03/22 Reason for Consult: Medical Management Requesting Physician: Uma Montanez Chief Complaint: Vaginal Bleeding History of Present Illness: Ms. Car is a 52 year old female with past medical history of pericarditis, asthma, depression, and migraines who presented to the emergency department with sudden onset heavy vaginal bleeding 2 hours [employer]. She had a total abdominal hysterectomy performed by Dr. Montanez about 3 weeks ago which had been uncomplicated. She was passing copious amounts of blood and blood clots while in the ED, became very pale and had a near syncopal episode. BP slowly down-trended but she did not become hypotensive, she was slightly tachycardic in the 100s. CT abdomen pelvis was obtained which showed "mild fat stranding in the lower pelvis and hyperdensity in the lower vaginal which may represent hemorrhage." Initial hemoglobin normal on CBC. 2 units PRBC ordered and transfusing. Dr. Montanez was contacted and opted to take patient to OR tonight to evaluate and repair under anesthesia. Medicine was asked to consult. Allergies codeine Allergy (Unverified 09/02/15 19:09) Unknown Home medications list reviewed: Yes - Past Medical/Surgical History Diabetic: No -: Asthma -: Pericarditis -: Depression -: Migraines -: Total Abdominal Hysterectomy -: -: Bladder Suspension -: Appendectomy Psychosocial/ Personal History: Patient lives at home with her family. - Social History Smoking Status: Never smoker Alcohol use: No CD- Drugs: No Caffeine use: Yes Place of Residence: Home Review of Systems 10-point ROS is otherwise unremarkable Genitourinary: Other (vaginal bleeding) Physical Examination BP: 110/76 Pulse: 103 Respiratory Rate: 18 Temperature: 98.6F Oxygen: 97% on RA General: Alert, In no apparent distress HEENT: Atraumatic, Normocephalic Neck: Supple, JVD not distended Respiratory: Clear to auscultation bilaterally, Normal air movement Cardiovascular: Normal pulses, Irregular heart rate/rhythm (tachycardic) Gastrointestinal: Soft and benign, Non-distended Musculoskeletal: No swelling, No tenderness Integumentary: No rashes, No breakdown Neurological: Normal speech, Normal affect Laboratory Data (last 24 hrs) 09/02/22 23:03: PT 10.7, INR 0.97 09/02/22 23:03: Sodium 135 L, Potassium 3.7, BUN 17, Creatinine 0.87, Glucose 138 H, Total Bilirubin 0.2, AST 10 L, ALT 18, Alkaline Phosphatase 100, Lipase 29 09/02/22 23:03: WBC 10.10, Hgb 12.3, Hct 36.1, Plt Count 487 H - Problems (1) Postoperative vaginal bleeding following genitourinary procedure Current Visit: Yes Status: Acute (2) Asthma Current Visit: Yes Status: Chronic Qualifiers: Asthma severity: unspecified severity Asthma persistence: unspecified Asthma complication type: uncomplicated Qualified Code(s): J45.909 - Unspecified asthma, uncomplicated (3) Depression Current Visit: Yes Status: Chronic Qualifiers: Depression Type: unspecified Qualified Code(s): F32.A - Depression, unspecified Conclusions/Impression: Patient to be admitted to the medical floor post operatively for observation following repair of suspected vaginal cuff tear. Pain medications ordered PRN postoperatively. Resume home venlafaxine, gabapentin, montelukast when tolerating PO. Serial H&Hs. Transfuse as necessary. She has 2 units currently transfusing. Monitor on telemetry. Anticipate DC later today if hemodynamically stable. Physician Review: Patient Assessed, Agree with Above Assessment and Plan Critical Care: No Time Spent Managing Pts care (In Minutes): 30
[2022-09-03] MEDS: Ringers Lactate 1,000 ML IV ONE ×2 (02:15→03:04)
[2022-09-03] MEDS ORDERED: MORPHINE 4 MG/ML SYR IV PRN (03:28)
[2022-09-03] MEDS ORDERED: HYDROCODONE/APAP 7.5/325 MG TAB PO PRN (03:28)
[2022-09-03 04:17] VITALS: BMI 43.4
[2022-09-03] MEDS ORDERED: HYDROCODONE/APAP 5/325 MG TAB PO PRN ×2 (04:22→07:23)
[2022-09-03] MEDS ORDERED: PROMETHAZINE INJ 25 MG/ML AMP IV PRN (04:22)
[2022-09-03] MEDS: NA CHLORIDE 0.9% 1,000 ML IV SCH ×2 (04:41→17:29)
[2022-09-03 05:26] LABS: Absolute Lymphocytes (CBC) 1.3 K/uL (0.7-4.9); Hematocrit 35.3 % (36.0-45.0); Lymphocytes % 13.3 % (15.3-44.8); MCV 87.6 fL (80-100); MPV 8.4 fL (7.6-11.3); RBC Red Blood Cell Count 4.03 M/uL (3.86-4.86)
[2022-09-03 05:38] LABS: Phosphorus 3.5 mg/dL (2.5-4.9); Potassium 4.3 mEq/L (3.5-5.1)
[2022-09-03] MEDS ORDERED: CEFAZOLIN 1 GM in NA CHLORIDE 0.9% 50 ML IVPB ONE (07:00)
--- NOTE | 2022-09-03 08:46 | HP ---
Date of Admission: 09/03/2022 Admitting Diagnosis: Vaginal cuff bleeding. History Of Present Illness: The patient is a 52-year-old female who presented with significant vagin al bleeding. She is 3 weeks postoperative from her robotic laparoscopic hysterectomy. She had been feeling well. No pelvic or abdominal pain, this has gotten significantly better in the past week. S he has returned back to work from just strictly home. According to history, spotting has continued s noris surgery. However, when she stood up this evening, noticed significant heavy vaginal bleeding wi thout any associated pain and therefore, called the answering service. Phone call returned by my [facility] practitioner, who immediately notified me of her complaints and was asked to come to the emergency room. When the patient came to the emergency room, she was evaluated. Review of Systems: All negative. 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 Bryant. Also history of asthma and pericarditis. Past Surgical History: Significant for a robotic total laparoscopic hysterectomy, bilateral salpingo -oophorectomy, lysis of adhesions, and uterosacral ligament suspension colpopexy, cystoscopy, on 07/19 at [facility], and she had a bladder lift in 2018 after which she recollects that she had some bleedi ng similar to this postoperatively, then x2 and tubal, history of appendectomy, and rest of bone injury and surgeries. Social History: No tobacco, alcohol, or drug use. 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 Allergies: NO ALLERGIES. HAS INTOLERANCE TO CODEINE. Medications: Currently she is on Lexapro 20 mg and Zyrtec as needed, nasal spray like Nasacort. Physical Examination: Vital Signs: She had blood pressure that was within normal range. Pulse rate in the low 100 103, bl ood pressure 110/76, afebrile 98.6, and pulse ox 97% percent on room air. General: When I saw her, she was in a supine fashion on the emergency room bed. HEENT: No pallor. Anicteric. No acute distress. Her partner was by her side. Abdomen: Soft, nondistended, nontender. Incisions clean, dry, intact. Laboratory Data: On review of labs, her hemoglobin was 12 g as she was drawn at 11 p.m., went ahead due to the heavy bleeding. The ER had crossed and matched her and hung [address] scan images have been reviewed and there is no gross evidence of any hematoma, intraabdominal or a ny other inflammatory process or collection. There was no reading on it officially, but this was on 08/28 review of images and no other abnormalities were seen in the bowel or in the lower pelvis. Assessment And Plan: A 52-year-old 3 weeks post hysterectomy with vaginal cuff bleeding. Plan for v aginal exam under anesthesia and vaginal cuff revision. Re-suturing, bleeding, infection, injury to the bowel, bladder and ureters have been reviewed with the patient, very small risk of having to need a laparoscopy for suture of the vaginal cuff and for hemostasis and re-suturing. She will be observ ed overnight with H and H in the morning and if it is stable and bleeding has simply stopped and she will be discharged home. This time, strict restrictions on rest. She will be seen 3 weeks postop. 3 g of Ancef was given preop. Then, she will go home with Augmentin 500 b.i.d. for 14 days. The par nai has also been at the bedside, counseled, and consents obtained before the patient was taken back to OR. SHOAIB/LAURENCE Voice ID: [id number]
--- NOTE | 2022-09-03 08:52 | OP ---
Date of Procedure: 09/03/2022 Surgeon: Uma Montanez MD Preoperative Diagnosis: Vaginal cuff bleeding in 3 weeks postop from hysterectomy. Postoperative Diagnosis: Vaginal cuff bleeding in 3 weeks postop from hysterectomy. Procedure Performed: Vaginal exam under anesthesia, vaginal cuff re-suturing. Anesthesia: General. Specimens: No specimens. Complications: No complications. Drains: No drains. Estimated Blood Loss: 50. Urine Output: Over 100. Fluids: LR 1000. The patient was given blood 1 unit packed cells in the ER, second unit running. Findings: Vaginal cuff at the left angle on the lower wall of the vaginal cuff. There was a tear an d this was bleeding briskly. Rest of the cuff was completely intact. No other abnormalities were no jace and the support was excellent. Indications: The patient is a 52-year-old with acute onset vaginal bleeding, brought to the ER, eval uated and taken to the OR right away. Description Of Procedure: After general anesthesia was given, she was placed in dorsal lithotomy pos ition using Andreas stirrups. Lower abdomen, vulva, vagina, and perineum prepped and draped in a steri le fashion. The vaginal cuff was then inspected. The angle was noticed to the bleeding. This is ad hered on the lower vaginal wall from the angle of the cuff. All the sutures were intact and there wa s no evidence of any loosening of the sutures. However, this seems to be adhered from the area of th e suture entry from the cuff suturing and the tear went down on the vaginal epithelium. Three figure -of-eight 0 Vicryl sutures were placed, 1 in the center for retraction, then 2 laterally for ligating the vessels as well as the vaginal epithelium. Once this was done, there was excellent hemostasis. Thorough irrigation and suction performed. Vaginal packing was done. Black was placed to drain and this will be left overnight. After the packings removed in 24 hours, we will remove the Black and h ave the patient do this at home. She will be given antibiotics, Augmentin 500 b.i.d. for 14 days, an other gram of Ancef before she leaves. CBC in the morning and iron at home. Findings will be discus sed with her partner. SK/JOHNL Voice ID: [id number] Report ID: [id number]
[2022-09-03 11:15] LABS: Absolute Lymphocytes (CBC) 1.2 K/uL (0.7-4.9); Hematocrit 34.7 % (36.0-45.0); Lymphocytes % 11.9 % (15.3-44.8); MCV 86.6 fL (80-100); MPV 8.5 fL (7.6-11.3); RBC Red Blood Cell Count 4.01 M/uL (3.86-4.86)
[2022-09-03] MEDS: IBUPROFEN 600 MG TAB PO PRN ×2 (12:48→21:47)
[2022-09-03] MEDS: POLYETHYL GLY 3350 17 GM/DOSE PO PRN (13:16)
--- NOTE | 2022-09-03 14:37 | P.PN ---
Date of Service: 09/03/22 Patient seen and examined. She denies any pain but states she feels she is still feeling trickling of bleeding. Nursing staff report bloodsoaked pads. Patient has no other complaint. Hemoglobin has been stable since blood transfusion. Continue to monitor H&H and transfuse as needed for rapid drop in hemoglobin or for hemoglobin less than 7. FURNITURE SALES ASSOCIATE Dr. Montanez is following and managing vaginal bleeding.
[2022-09-03] MEDS ORDERED: NA CIT/CITRIC AC 30 ML ORAL UDC ONE (18:54)
--- NOTE | 2022-09-03 19:02 | RAD REPORT ---
EXAM DESCRIPTION: CT - Abdomen Pelvis W Contrast - 09/03/2022 1:07 am CLINICAL HISTORY: The patient is 52 years old and is Female; VAGINAL BLEEDING S/P SERG TECHNIQUE: Axial computed tomography images of the abdomen and pelvis with intravenous contrast. S agittal and coronal reformatted images were created and reviewed. This CT exam was performed using one or more of the following dose reduction techniques: automated exposure control, adjustment of t he mA and/or kV according to patient size, and/or use of iterative reconstruction technique. COMPARISON: No relevant prior studies available. FINDINGS: Lung bases: Unremarkable. No mass. No consolidation. ABDOMEN: Liver: Unremarkable. No mass. Gallbladder and bile ducts: Unremarkable. No calcified stones. No ductal dilation. Pancreas: Unremarkable. No mass. No ductal dilation. Spleen: Unremarkable. No splenomegaly. Adrenals: Unremarkable. No mass. Kidneys and ureters: Unremarkable. No solid mass. No hydronephrosis. Stomach and bowel: Unremarkable. No obstruction. No mucosal thickening. PELVIS: Appendix: No findings to suggest acute appendicitis. Bladder: Unremarkable. Reproductive: Hyperdensity in the lower vagina which may represent hemorrhage. Uterus is not seen. ABDOMEN and PELVIS: Intraperitoneal space: See below. Bones/joints: No acute fracture. No dislocation. Soft tissues: Mild fat stranding in the lower pelvis which may be postsurgical. Vasculature: Unremarkable. No abdominal aortic aneurysm. Lymph nodes: Unremarkable. No enlarged lymph nodes. IMPRESSION: 1. Mild fat stranding in the lower pelvis which may be postsurgical. 2. Hyperdensity in the lower vagina which may represent hemorrhage. 3. Uterus is not seen. Electronically signed by: Israel Smith MD 09/03/2022 12:35 AM CDT Due to temporary technical issues with the PACS/Fluency reporting system, reports are being signed by the in house radiologists without review as a courtesy to insure prompt reporting. The interpreting radiologist is fully responsible for the content of the report.
[2022-09-03] MEDS ORDERED: KETOROLAC 30 MG/ML INJ ONE (19:13)
[2022-09-03] MEDS ORDERED: propofoL 200 MG/20 ML VIAL IV ONE (19:13)
[2022-09-03] MEDS ORDERED: SILVER NITRATE 1 APPL TOP ONE (19:50)
[2022-09-03] MEDS: MORPHINE 4 MG/ML SYR ONE ×2 (20:05→20:10)
[2022-09-03] MEDS ORDERED: CEFAZOLIN SODIUM 1 GM/VIAL ONE (20:14)
[2022-09-03] MEDS ORDERED: NA CHLORIDE 0.9% 100 ML ONE (20:15)
[2022-09-03 21:44] VITALS: O2SAT 96
[2022-09-04] MEDS: CEFAZOLIN 1 GM in NA CHLORIDE 0.9% 50 ML IVPB SCH ×2 (04:05→11:27)
[2022-09-04] MEDS: NA CHLORIDE 0.9% 1,000 ML IV SCH ×2 (04:08→09:28)
--- NOTE | 2022-09-04 05:13 | OP ---
Surgeon: Uma Montanez MD This is done at the bedside. 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 Postprocedure Diagnosis: Vaginal cuff oozing. Procedure Performed: Pelvic exam with application of a hemostatic agent and vaginal packing. Description Of Procedure: The patient was placed in bed in a supine fashion. Then, she was position ed in the modified lithotomy position using 2 bed pants under her buttocks. After she was consented at the bedside, she was moved over to the bed and procedure started. A bivalve speculum was placed to expose the vaginal cuff after the existing vaginal packing was remov ed with ring forceps. Then, on visualization of the left end of the cuff where there was bleeding th is morning, there was very minimal oozing. The vaginal pack that was placed this afternoon by my lilia se practitioner was very minimally stained. This is old dry blood. The area of bleeding that was noted early this morning which had a very slight oozing at this point w as used a sprayed with Jeanette using the short nozzle. Once the spray was applied, I waited for a few minutes and then packed her with a 2-inch gauze roll. This was packed, not too tightly. Then, spec ulum removed. The patient tolerated the procedure fairly well. 2 mg of morphine and 1 g of Ancef wi ll be given at this time and will continue Ancef 1 g q.8 hours x3 doses before she is discharged anton rrow. Estimated Blood Loss: Minimal. Hospital Course: On day #1, as she was being evaluated for discharge mid day this morning, it was no jace that her vaginal packing was completely soaked and there was a stain probably the size of her manning d on the pad, which was slightly concerning as I did not anticipate her to bleed again. So my nurse practitioner had examined the patient and taken the soaked vaginal packing out. There were small andreas ts apparently in the vaginal wall for which she repacked the patient and she was kept in-house withou t being discharged. I then examined her and I came back in the evening for round and her hemoglobin has been stable from 12 to 11.7. She did have 2 units of blood transfusion. Not tachycardic anymore . Pain control to be acceptable and no other issues. Assessment And Plan: 1.Vaginal cuff bleeding, exam under anesthesia and suturing was performed earlier this morning. She had to be repacked and hemostatic agent had to be used for complete cessation of the mild bleeding t hat was ongoing. Vaginal pack will remain in place for 12 hours. Ancef 1 g will be given q.8 hours x3 doses, which will be followed by Augmentin at home b.i.d. for 10 to 14 days. 2.Stress urinary incontinence. This is postoperative and it has been very mild. At this time, the patient has difficulty urinating due to the vaginal pack, so Black catheter was left in place. This will be removed in the morning tomorrow after the pack is removed. 3.Pelvic pain. This will be controlled with morphine and oral [place] and Motrin overnight. We will re-evaluate her in the morning. 4.Acute onset iron deficiency anemia from acute blood loss from the vaginal cuff. We will continue to monitor her hemoglobin. We will do a CBC in the morning, plan to discharge her on iron orally santiago ly for 3 months when she is being discharged. Anticipated discharge within the next 24 hours. She i s being converted from observation to inpatient. SHOAIB/LAURENCE Voice ID: [id number] Report ID: [id number]
[2022-09-04 05:27] LABS: Hematocrit 30.1 % (36.0-45.0); Lymphocytes % 31.4 % (15.3-44.8); MCV 87.5 fL (80-100); MPV 8.6 fL (7.6-11.3); RBC Red Blood Cell Count 3.44 M/uL (3.86-4.86)
[2022-09-04 05:38] LABS: Magnesium 2.1 mg/dL (1.6-2.4); Phosphorus 3.4 mg/dL (2.5-4.9); Potassium 3.6 mEq/L (3.5-5.1)
[2022-09-04] MEDS: IBUPROFEN 600 MG TAB PO PRN (06:57)
[2022-09-04] MEDS ORDERED: HYDROCODONE/APAP 5/325 MG TAB PO PRN (07:47)
[2022-09-04] MEDS ORDERED: GABAPENTIN 100 MG CAP PO PRN (07:47)
[2022-09-04] MEDS ORDERED: POTASSIUM 25 MEQ EFFERV TAB PO ONE (08:00)
[2022-09-04] MEDS: POLYETHYL GLY 3350 17 GM/DOSE PO PRN (08:25)
[2022-09-04] MEDS ORDERED: MONTELUKAST 10 MG TAB PO SCH (09:00)
[2022-09-04] MEDS ORDERED: VENLAFAXINE HCL XR 75 MG CAP PO SCH (09:00)
[2022-09-04 09:50] VITALS: TEMP 97.2
--- NOTE | 2022-09-04 12:09 | P.PN ---
Subjective Date of Service: 09/04/22 Chief Complaint: Vaginal Bleeding Patient has no new complaint today. She denies any pain. No significant vaginal bleeding reported today. Physical Examination - Vital Signs Temperature: 97.2 F Blood Pressure: 127/69 Pulse: 68 Respirations: 23 Pulse Ox (%): 94 - Physical Exam General: Alert, In no apparent distress, Oriented x3 HEENT: Mucous membr. moist/pink Neck: JVD not distended Respiratory: Clear to auscultation bilaterally, Normal air movement Cardiovascular: No edema, Regular rate/rhythm, Normal S1 S2 Gastrointestinal: Normal bowel sounds, Soft and benign, Non-distended, No tenderness Musculoskeletal: No swelling Integumentary: No rashes, No cyanosis Neurological: Normal strength at 5/5 x4 extr Assessment And Plan - Current Problems (Diagnosis) (1) Acute blood loss anemia Current Visit: Yes Status: Acute (2) Postoperative vaginal bleeding following genitourinary procedure Current Visit: Yes Status: Acute (3) Asthma Current Visit: Yes Status: Chronic Qualifiers: Asthma severity: unspecified severity Asthma persistence: unspecified Asthma complication type: uncomplicated Qualified Code(s): J45.909 - Unspecified asthma, uncomplicated (4) Depression Current Visit: Yes Status: Chronic Qualifiers: Depression Type: unspecified Qualified Code(s): F32.A - Depression, unspecified - Plan Hemoglobin is relatively stable since 2 units blood transfusion. Continue to monitor H&H if she remains inpatient. She is on cefazolin per primary. Resume home medications for asthma and depression. Pain management as needed. Physician Review: Patient Assessed, Agree with Above Assessment and Plan
[2022-09-04 14:41] VITALS: BP 124/75
== END 2022-09-04 14:20 | disposition home health service (06) ==
LOC: ER 22:37 → ERHOLD 09-03 01:38 → 3RD-ICU 09-03 03:32
PROVIDERS: ADMIT Obstetrics & Gynecology; ATTEND Obstetrics & Gynecology
PROC: 30233N1 Transfusion of Nonautologous Red Blood Cells into Peripheral Vein, Percutaneous Approach (ICD-10-PCS; 2022-09-03)
PROC: 0UQG7ZZ Repair Vagina, Via Natural or Artificial Opening (ICD-10-PCS; principal; 2022-09-03 01:45)
DX: N99.821 Postprocedural hemorrhage of a genitourinary system organ or structure following other procedure (principal); D62 Acute posthemorrhagic anemia; F32.A Depression, unspecified; K21.9 Gastro-esophageal reflux disease without esophagitis; J45.909 Unspecified asthma, uncomplicated; I31.9 Disease of pericardium, unspecified; G43.909 Migraine, unspecified, not intractable, without status migrainosus; Z88.6 Allergy status to analgesic agent; Z98.890 Other specified postprocedural states
CPT/HCPCS: 96361; 85025 ×4; 81001; 80048 ×2; 36415 ×2; 86900; 83735 ×2; 86850; 84100 ×2; 85610; 86901; 86920; 83690; 80053; 74177; 96375; 96374; 99285; 57200; 36430; Q9967; J2704; J1100; J2710; J1200; J2001 ×2; J2250 ×2; J3010 ×2; J2405 ×3; P9016 ×2; J7120; J7040; J7030 ×4; J0690 ×5; G0378

== ENCOUNTER 2023-01-29 07:45 | Day surgery (SDC) | payer BC ==
[2023-01-29 07:49] LABS: Absolute Lymphocytes (CBC) 2.4 K/uL (0.7-4.9); Hematocrit 36.8 % (36.0-45.0); Lymphocytes % 35.1 % (15.3-44.8); MCV 85.8 fL (80-100); MPV 8.4 fL (7.6-11.3); Platelets 306 thou/uL (152-406); RBC Red Blood Cell Count 4.29 M/uL (3.86-4.86)
--- NOTE | 2023-01-29 07:53 | RAD REPORT ---
EXAM DESCRIPTION: RAD - Chest Pa And Lat (2 Views) - 01/29/2023 7:45 am CLINICAL HISTORY: pre op for surgery, prediabetic COMPARISON: No comparisons FINDINGS: Lines: None. Lungs: No evidence of edema or pneumonia. Pleural: No significant pleural effusions or pneumothorax. Cardiac: The heart size is within normal limits. Mediastinum: Within normal limits. Bones: No acute fractures. Other: None IMPRESSION: No acute cardiopulmonary disease.
[2023-01-29 08:04] LABS: Potassium 4.2 mEq/L (3.5-5.1)
[2023-01-29] MEDS ORDERED: NA CHLORIDE 0.9% 1,000 ML ONE (08:25)
[2023-01-29] MEDS ORDERED: CEFOXITIN SODIUM 1 GM/VIAL ONE (08:25)
[2023-01-29] MEDS ORDERED: BUPIVACAINE 0.5% PF 10 ML VIAL ONE (09:14)
[2023-01-29] MEDS ORDERED: propofoL 200 MG/20 ML VIAL IV ONE (09:16)
[2023-01-29] MEDS ORDERED: FENTANYL CITR 100 MCG/2 ML ONE (09:16)
[2023-01-29] MEDS ORDERED: LIDOCAINE 2% MPF 5 ML VIAL ONE (09:16)
[2023-01-29] MEDS ORDERED: MIDAZOLAM HCL 2 MG/2 ML INJ ONE (09:17)
[2023-01-29] MEDS ORDERED: ONDANSETRON 4 MG/2 ML VIAL ONE ×3 (09:19→13:31)
[2023-01-29] MEDS ORDERED: GLYCOPYRROLATE 0.2 MG/ML SYR ONE (09:20)
[2023-01-29] MEDS ORDERED: ROCURONIUM 50 MG/5 ML VIAL IV ONE (09:20)
[2023-01-29] MEDS ORDERED: NEOSTIGMINE 1 MG/ML -10 ML VIAL ONE (09:22)
[2023-01-29] MEDS ORDERED: EPHEDRINE SULF 50 MG/ML VIAL ONE (10:03)
--- NOTE | 2023-01-29 10:50 | P.OP ---
Date of Service: 01/29/23 Preop diagnosis: Abdominal pain, chronic cholecystitis and biliary dyskinesia Postop diagnosis: Same, ventral hernia Procedure performed: Diagnostic laparoscopy, laparoscopic cholecystectomy and repair of ventral hernia Surgeon: Tone Moore MD Fancy Stitcher: Stephanie SWIFT Estimated blood loss: Minimal Specimen: Gallbladder Findings: As above Anesthesia: General Complications: None Drains: None Fluids and blood products: Nonapplicable Disposition: Recovery room Operative note: Patient brought to the OR and placed in supine position. General anesthesia begun. Patient prepped and draped in the usual sterile fashion. Marcaine 0.5% infiltrated locally. 15 blade used to make a 2 cm supraumbilical midline incision. Subcu tissue divided. Bleeding controlled with pressure identified and divided. #1 Vicryl stay suture placed. Peritoneal cavity entered with sharp and blunt dissection. 12 mm trocar placed into the peritoneal cavity under direct vision. Pneumoperitoneum established. Three 5 mm trocars placed. 1 trocar placed in the epigastric region just to the right of midline. 2 trocars placed in the right subcostal region under direct vision. Laparoscopy revealed a 1 cm ventral hernia of from previous surgery. No evidence of any incarceration was seen. Gallbladder was mildly inflamed. Fundus of the gallbladder identified and retracted superiorly. Infundibulum identified and retracted inferolaterally. Cystic duct and cystic artery clearly identified with blunt dissection. Clips placed and both structures divided. Cautery used to remove the gallbladder from the liver bed. Bleeding on the liver bed controlled cautery. Gallbladder retrieved through the umbilicus via Endo Catch bag. Right upper quadrant irrigated. No evidence of bleeding or bile leakage appreciated. Endo closed with #1 PDS used to close the hernia defect. Complete coverage of the hernia defect was accomplished with this method. Did not place the mesh in this case because we did a gallbladder surgery to reduce the risk of infection. All trocars were removed under direct vision. Stay sutures tied to each other to reapproximate the fascial defect. Subcutaneous wounds irrigated and bleeding controlled cautery. 3-0 chromic used approximate subcutaneous tissue and close skin. Sterile dressing applied. Patient awakened taken recovery room in good general condition. CC: Dr. Martinez's office
[2023-01-29] MEDS ORDERED: HYDROCODONE/APAP 7.5/325 MG TAB PO PRN (10:52)
[2023-01-29] MEDS ORDERED: MEPERIDINE HCL 25 MG/ML SYR ONE (10:54)
[2023-01-29] MEDS: HYDROMORPHONE HCL 1 MG/ML INJ ONE ×3 (11:13→11:30)
[2023-01-29] MEDS ORDERED: HYDROMORPHONE HCL 1 MG/ML INJ ONE (11:43)
[2023-01-29] MEDS ORDERED: HYDROCODONE/APAP 7.5/325 MG TAB ONE (12:19)
[2023-01-29 12:50] VITALS: BP 102/70; TEMP 97
--- NOTE | 2023-01-29 13:49 | EKG ---
Test Date: 2023-01-29 Test Time: 07:32:04 Pharmacy Cashier: ASHA MEASUREMENT RESULTS: Intervals: Rate: 62 TN: 188 QRSD: 82 QT: 400 QTc: 406 [place]: P: 63 TN: 188 QRS: 30 T: 49 INTERPRETIVE STATEMENTS: Normal sinus rhythm Normal ECG Compared to ECG 04/10/2004 17:22:00 Sinus arrhythmia no longer present Electronically Signed On 01-29-23 13:48:21 CDT by Felix Sagastume
[2023-01-29 14:03] VITALS: O2SAT 97
== END 2023-01-29 13:35 | disposition home or self-care (01) ==
LOC: OR 07:45
PROVIDERS: ATTEND Surgery
PROC: 0FT44ZZ Resection of Gallbladder, Percutaneous Endoscopic Approach (ICD-10-PCS; principal; 2023-01-29 09:00)
DX: K81.1 Chronic cholecystitis (principal); K80.20 Calculus of gallbladder without cholecystitis without obstruction; R10.9 Unspecified abdominal pain; K82.8 Other specified diseases of gallbladder; K43.9 Ventral hernia without obstruction or gangrene
CPT/HCPCS: 93005; 85025; 80048; 36415; 82947; 88304; 71046; 47562; J2704; J2710; J2001; J2250; J3010; J2175; J1170 ×2; J0694; J2405 ×2; J7030